=== PATIENT | male | born 1945 | race Caucasian/White ===

== ENCOUNTER 2022-03-17 09:01 | Outpatient (CLI) | payer MEDICARE, OTHER, SELFPAY ==
--- NOTE | 2022-03-17 09:15 | MR_ITS ---
[address] [address] Phone:?[phone] Fax:?[phone] Referring Physician Information: Daniel Lu M.D. [address] [facility] [address] Phone:?[phone] Fax:?[phone] Patient:?Johanny Love D.O.B:?1945 Sex:?Male Phone:?[phone] [facility] MRN:?[id number] Exam Date:?03/17/2022 ? EXAM: MRI of the RIGHT SHOULDER, without contrast CLINICAL HISTORY: Right shoulder pain. History of injury/flipped in a trench. Evaluate for rotator cuff tear. COMPARISONS: None available. TECHNICAL: MRI sequences of the right shoulder: Axials: PD, T2 Coronals: PD, STIR, T2 Sagittals: PD, T2 SEDATION: None CONTRAST: None FINDINGS: Bones: No fracture or suspicious bone marrow signal abnormality. Coracoacromial arch: Acromion: Type II acromion. No os acromiale. There is a subacromial enthesophyte. Acromiohumeral space: Markedly narrowed in the setting of full-thickness supraspinatus and infraspinatus tendon tears. Coracohumeral space: The bony distance is unremarkable. Acromioclavicular joint: Marked degenerative changes with marked inferior osteophytosis. Coracoclavicular ligament: The coracoclavicular ligament is intact. Rotator cuff muscles/tendons: Supraspinatus and infraspinatus: There are complete full-thickness tears of the supraspinatus and infraspinatus tendons with proximal/medial tendon retraction to the level of the glenoid, superior subluxation of the humeral head/marked narrowing of the acromiohumeral bony distance, slight atrophy of the supraspinatus muscle, and mild to moderate atrophy of the infraspinatus muscle in the setting of mild diffuse muscular atrophy. Teres minor: The teres minor tendon is intact. There is no disproportionate muscular atrophy. Subscapularis: Approximately 3.0 cm in craniocaudad dimension near full- thickness articular sided tear of the superior and mid portions of the subscapularis tendon. Slight atrophy of the subscapularis muscle in the setting of slight diffuse muscular atrophy. Labrum: There is degenerative fraying of most of the labrum. Proximal biceps tendon, long head and short heads: There is rupture of the proximal long head of the biceps tendon with distal tendon retraction distal to the bicipital groove. The short head is intact. Glenohumeral joint: Small glenohumeral joint effusion and substantial synovitis. No full-thickness chondral defect or subchondral bone marrow edema/cystic change is seen. No convincing evidence of capsular edema or thickening although evaluation is suboptimal because of lack of joint distention. Bursae: Subacromial/subdeltoid: The presence of fluid is not unexpected given full- thickness rotator cuff tendon tearing. Subcoracoid: No convincing subcoracoid bursal thickening/bursitis. IMPRESSION: 1. Complete full-thickness tears of the supraspinatus and infraspinatus tendons with proximal/medial tendon retraction to the level of the glenoid, superior subluxation of the humeral head, slight atrophy of the supraspinatus muscle, and mild to moderate atrophy of the infraspinatus muscle (in the setting of slight diffuse muscular atrophy). 2. Approximately 3.0 cm in craniocaudad dimension near full-thickness articular sided tear of the superior and mid portions of the subscapularis tendon. Slight atrophy of the subscapularis muscle in the setting of slight diffuse muscular atrophy. 3. Rupture of the proximal long head of the biceps tendon with distal tendon retraction distal to the bicipital groove. 4. Subacromial enthesophyte. 5. Small glenohumeral joint effusion and substantial synovitis. RCB Electronically signed on 03/17/2022 1:54:00 PM by Abiel Baez M.D.
== END 2022-03-17 09:02 | disposition home or self-care (01) ==
LOC: MRI 09:02
PROVIDERS: PCP Family Medicine; Visit Provider Orthopaedic Surgery Sports Medicine
DX: M25.511 Pain in right shoulder (principal); M75.101 Unspecified rotator cuff tear or rupture of right shoulder, not specified as traumatic; M25.412 Effusion, left shoulder
CPT/HCPCS: 73221

== ENCOUNTER 2022-04-14 06:52 | Day surgery (SDC) | payer MEDICARE, OTHER, SELFPAY ==
[2022-04-14] VITALS (19 sets, daily range): BP systolic 98–136; BP diastolic 50–67; PULSE 48–71; RESP 14–16; TEMP 36.2–36.7; O2SAT 93–98; BMI 32.5
[2022-04-14] MEDS: LACTATED RINGERS 1000 ML 1,000 ML 100 ML IV (07:30)
[2022-04-14] MEDS: MIDAZOLAM HCL 1 MG/ML inj IVP (08:01)
[2022-04-14] MEDS: fentaNYL 100 MCG/2 ML inj IVP (08:01)
--- NOTE | 2022-04-14 08:13 | SUR.PREOP ---
TIME?OUT:?0755 PT/RN/MDA?VERIFICATION?OF?SURGICAL?SITE,?PROCEDURE,?AND?CONSENT OBTAINED?PRIOR?TO?INVASIVE?PROCEDURE.
--- NOTE | 2022-04-14 08:16 | W.PM.NB ---
Nerve Block Nerve Block Date Seen: 04/14/22 Type of block requested by surgeon for post-operative analgesia: interscalene Side: right Time out performed: Yes Verification of patient name: Yes Verification of date of : Yes Site marking: site marked Name of person performing procedure: Junior Continuous monitoring Was continuous monitoring of O2 sat, B/P, credit risk modeler, recorded every 15 minutes?: Yes Procedure Checklist: sterile prep, needles and gloves Ultrasound guided. Images saved: Yes Medications given in 5ml increments after negative aspiration: Ropivicaine %: 0.5 mL: 20 Needle gauge: 22 Decadron (mg): 10 Precedex (mcg): 25 Patient tolerated procedure well: Yes Block Charges Block Charge (with Pro Fee): Brachial Plexus Use of Ultrasound Machine for Block: Yes- US Guidance/pain block
[2022-04-14] MEDS: CEFAZOLIN 2 GM in 0.9 % SODIUM CHLORIDE Mini-bag 100 ML IVPB (09:45)
--- NOTE | 2022-04-14 10:03 | W.ANESCHARGE ---
Anesthesia Charges Start Date/Time Anesthesia Start Date: 04/14/22 Anesthesia Start Time: 09:28 Stop Date/Time Anesthesia Stop Date: 04/14/22 Anesthesia Stop Time: 12:12 Summary Emergency: No Extremes of Age: Over 70-CPT 26960
--- NOTE | 2022-04-14 10:10 | SUR.OPER ---
PATIENT QUESTIONS ANSWERED SATISFACTORILY PREOPERATIVELY. PATIENT BROUGHT TO OR #3 PER CART FOLLOWING THE BLOCK. Patient positioned supine on OR #3 bed for the intubation.? Perioperative team wrapped the?left arm in a neutral position on the pt. abdomen with the drawsheet.?Right arm elevated on an IV pole in a padded strap. Final approval of positioning by surgeon. CONTINUOUS IRRIGATION OF THE LEFT SHOULDER WITH MIXTURE OF 3000 NACL AND 1mg OF EPINEPHRINE DURING PROCEDURE.
--- NOTE | 2022-04-14 11:49 | PM.ORPRC ---
Procedure Note Date of procedure: 04/14/22 Procedure: PREOPERATIVE DIAGNOSES: 1. Right shoulder rotator cuff tear-full thickness supraspinatus and infraspinatus and upper border subscapularis 2. Right shoulder AC degenerative joint disease. 3. Right shoulder labral tearing 4. Right shoulder long head of biceps rupture. 5. Right shoulder subacromial impingement syndrome. POSTOPERATIVE DIAGNOSES: 1. Right shoulder rotator cuff tear-full thickness supraspinatus and infraspinatus and upper border subscapularis 2. Right shoulder AC degenerative joint disease. 3. Right shoulder labral tearing 4. Right shoulder long head of biceps rupture. 5. Right shoulder subacromial impingement syndrome. NAME OF OPERATION: 1. Right shoulder arthroscopic rotator cuff [id number] supraspinatus and infraspinatus with retraction in mid humeral head; as well as upper border subscapularis 2. Right shoulder arthroscopic distal clavicle excision 3. Right shoulder arthroscopic extensive glenohumeral debridement 4. Right shoulder arthroscopic bursectomy and subacromial decompression/partial acromioplasty. SURGEON: Daniel Lu MD LATEX FOAM WORKER: Donta CHAPARRO. Of note, a skilled retail sales assistant was critical for this case to aide in patient positioning, suture manipulation, arm positioning, instrument positioning, and closure. ANESTHESIA: General plus preoperative supraclavicular block. EBL: Less than 50 mL IMPLANTS: Arthrex 2.6 mm FiberTak RC (x2); 4.75 mm BioComposite SwiveLock suture anchor (x2); 5.5 mm BioComposite SwiveLock suture anchor (x2) COMPLICATIONS: None evident INDICATIONS: The patient is a pleasant, 76-year-old male who has experienced right shoulder pain that has been increasing in recent time. Physical exam and imaging were consistent with a rotator cuff tear. Given their findings, as well as the weakness and pain, and inadequate response to nonoperative management, recommendation was made for surgery. FINDINGS: Exam under anesthesia revealed stable shoulder with excellent range of motion. The diagnostic arthroscopy revealed grade 2 chondromalacia humeral head with some loose chondral tissue. The Subscapularis tendon was torn from its upper border with mild retraction. The long head of the biceps tendon was absent from the joint consistent with previous rupture. The superior rotator cuff tendon was found to be torn full-thickness through the entire supraspinatus and majority of the infraspinatus with retraction to the medial/mid humeral head.. The labrum was torn through majority the superior labrum as well as anterior labrum likely consistent with the prior biceps rupture. No loose bodies were identified within the pouch or subscapularis recess. PROCEDURE: Following a thorough discussion of risks, benefits, and alternatives, consent was obtained and the right shoulder was marked. The patient was brought to the operating room and placed supine on the operating table. Induction of anesthesia was completed after preoperative supraclavicular block was administered in preop holding. Appropriate time out was performed identifying proper patient, site, and procedure. 2 g IV Ancef was administered within 1 hour of incision preoperatively. The right upper extremity was prepped and draped in the appropriate sterile fashion using ChloraPrep prep. This was after the patient was positioned in the beach chair with their head in neutral alignment and all bony prominences well padded. The shoulder was insufflated with 20mL of normal saline via an 18g spinal needle from a posterior approach. An 11 blade skin incision allowed a blunt trochar to be inserted and diagnostic arthroscopy to be performed with the findings as noted above. An anterior portal was established with an outside in technique. This allowed the probe to be inserted and confirm the diagnostic arthroscopic findings. The shaver was then inserted and allowed debridement of the superior labrum as well as anterior labrum, humeral chondral tissue, biceps stump, biceps tendon that had retracted down into the bicipital groove, and rotator cuff tissue. Following this, the upper border subscapularis was repaired after debriding the lesser tuberosity with the shaver and [place] cautery. Subscapularis was captured in horizontal mattress fashion with a fiber tape suture. The tails were brought to a single anchor in the lesser tuberosity with excellent reapproximation of the subscap tendon and good excursion/tension. Thereafter, the subacromial space was entered. Here, a complete bursectomy and partial acromioplasty/subacromial decompression was performed with a combination of radiofrequency ablator, the shaver, and a 5.5 mm bur. Additionally, distal clavicle excision was performed with the bur. 8 mm of distal clavicle was resected based on the with of our bur. Further inspection of the supraspinatus and infraspinatus rotator cuff was performed. This identified the tear as noted above. The margins of the tear were debrided, and the greater tuberosity was debrided with a combination of the [place] cautery, shaver, and bur on reverse setting. After gentle decortication, a 3 x 2 speed bridge configuration with a medial alden was engaged. 3 medial anchors were placed (FiberTak RC for the anterior and posterior, 4.75 mm for the middle) and the sutures were passed with a fiber link. The eyelet suture tails were then retrieved and tied and cinched down for the medial alden purpose. A tail from each of the medial row anchor FiberTapes were then brought to a lateral row anchor along with 1 of the tails from the medial alden. Excellent reapproximation of the tissue to the greater tuberosity was achieved with broad footprint compression. Prior to anchor electric train driver removal, the eyelet sutures were tugged on for each anchor and found that the anchor had excellent stability within the bone. The shoulder was placed through range of motion and found to be stable. The rotator cuff was re-probed and found to be stable. Instruments were removed. Excess fluid was drained, closure performed with 4-0 Monocryl and Steri-Strips. Dressings were applied. Sling was applied. The patient was awoken from anesthesia and transferred to the PACU in stable condition. A skilled retail sales assistant was critical for this case to aid in patient positioning, limb positioning, skill to manipulate arthroscopic instruments and camera, suture management, patient safety, and closure. PLAN: 1. Elbow, forearm, wrist and digit range of motion as tolerated. 2. Encouraged ice. 3. Percocet for pain as needed. 4. Sling at all times except for ROM and showering. 5. Follow up with PA visit in 1-2 weeks for wound check. Initiate physical therapy following that visit for passive range of motion. Initiate active assisted range of motion at 4-6 weeks. May do pendulums now.
--- NOTE | 2022-04-14 12:15 | W.ANESCHARGE ---
Anesthesia Charges Start Date/Time Anesthesia Start Date: 04/14/22 Anesthesia Start Time: 09:28 Stop Date/Time Anesthesia Stop Date: 04/14/22 Anesthesia Stop Time: 12:12 Summary Emergency: No Extremes of Age: Over 70-CPT [address]
== END 2022-04-14 14:40 | disposition home or self-care (01) ==
PROVIDERS: PCP Family Medicine; Visit Provider Orthopaedic Surgery Sports Medicine
PROC: (CPT 29805; principal; 2022-04-14 08:30)
DX: M75.121 Complete rotator cuff tear or rupture of right shoulder, not specified as traumatic (principal); M19.011 Primary osteoarthritis, right shoulder; M75.41 Impingement syndrome of right shoulder; S46.111A Strain of muscle, fascia and tendon of long head of biceps, right arm, initial encounter; S43.431A Superior glenoid labrum lesion of right shoulder, initial encounter
CPT/HCPCS: 29827; 29826; 29824; 29823; 01630; 64415; 76942; 99100; C1713; J0330; J0690; J1100; J1170; J2250; J2370; J2405; J2704; J2795; J3010; J7120; L3670

== ENCOUNTER 2022-09-17 13:45 | Outpatient (RCR) | payer MEDICARE, OTHER, SELFPAY ==
--- NOTE | 2022-05-17 14:58 | PT.OPEX ---
PT [place] Out[facility] Eval PT [facility] Outpatient Eval Start: 05/13/22 08:39 Freq: Status: Active Protocol: Document 05/13/22 08:40 ERLINDA (Rec: 05/13/22 08:41 ERLINDA [id number]) E-signed By Guru Gutierrez DPT, MS Physical Therapy Outpatient Evaluation Insurance Information Recert Due Date 08/11/22 Insurance Name Medicare B Medical Diagnosis Status post R rotator cuff repair, SAD, DCE, bursectomy, extensive glenohumeral debridement Treating Diagnosis R shoulder pain, decreased R shoulder PROM and AROM in all directions, R UE weakness. Subjective Subjective Pt is a 76 y.o. male who presents to therapy post-op R RCR (supraspinatus and infraspinatus) with 6 anchors, biceps tenotomy, bursectomy, extensive shoulder debridement , DCE and SAD on 04/14/22. Injury occurred ~5 days prior to surgery after slipping on loose dirt during a [employer] for [employer]. Shoulder feeling better every day with decreased pain levels, only requiring occasional Advil recently. Careful to avoid AROM, continued sling usage and not performing activities into pain. 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 PMH includes high cholesterol. AGGR factors: All activities with R UE, sleeping. ALLEV factors: rest , ice, Advil, pendulums. Pain Comments 0-2/10 Current Work Status Retired Preferred Name [facility] Precautions Treatment Precautions/Contraindications No AAROM until 6 weeks post-op Therapy Limitations/Systems Review Not Limited Objective Functional Test Performed & Score QUICK DASH 92% Assessment Assessment/Impression Pt is doing very well 4-weeks post-op with minimal pain and excellent precautions compliance. R shoulder PROM: flex 95 deg, ABD 80 deg, ER 20 deg, IR 45 deg. Pt struggled with relaxation during passive flex ROM, especially on the downward phase which was stopped to avoid injury or irritation of R shoulder. Pt will likely respond better to pulleys to perform in future visits. Will begin AAROM at 6 weeks post-op, per MD instructions. Current limitations: R shoulder pain, decreased R shoulder PROM and AROM in all directions, R UE weakness. He will benefit from continued skilled therapy to address these limitations. Primary Functional Limitations All activities with L UE, sleeping Plan of Care Rehabilitation Potential Excellent Physical Therapy Goals Short-term therapy goals to be completed in 4 weeks: 1.Pt will display improved R shoulder flex and ABD PROM to >165 deg to progress to AROM phase of rehab. 2.Pt will report improved quality of sleep waking <2x per night due to R shoulder pain >50% of nights for >3 consecutive nights. Long-term goals to be completed in 12 weeks: 1.Pt will be independent and compliant with HEP 2.Pt will display >165 deg R shoulder flex and ABD AROM to reach into overhead cabinets and perform all ADLs. 3.Pt will display improved R shoulder flex, ABD, ER and IR strength of 5/5 to lift objects into overhead cabinets and perform work activities. 4. Pt will report >75% improvement in quick DASH questionnaire to significantly improve mookie to work and daily activities. Coordination/Communication With Referral Source Treatment Plan/Direct Interventions Joint Mobilization,Manual Therapy,Therapeutic Exercises Frequency/Duration 1-2x per week for at least 12- 16 visits, decreasing visit frequency as able. Patient Will Be Discharged From Therapy Completion of LTG(s),Skills Plateau,Independent w/HEP, Independently Progressing Evaluation Billing Untimed Code Treatment Minutes 24 Complexity Moderate Certification Information Initial Certification Date 05/13/22 Ending Certification Date 08/11/22 Provider Signature Shows Agreement With POC & Medical Necessity Physician Signature & Date Requested Please Sign/Date Here Physician Comment/Change : Physician NPI Number #
--- NOTE | 2022-08-20 12:53 | PT.OPDNX ---
[facility] Daily Note PT [facility] Outpatient Daily Note Start: 05/13/22 08:39 Freq: Status: Active Protocol: Document 08/20/22 12:39 ERLINDA (Rec: 08/20/22 12:50 ERLINDA [id number]) E-signed By Guru Gutierrez, VIKTORIAT, MS PT OP Daily Progress Note Visit Information Note Type Recert/Progress Note Visit Number 10 Insurance Authorized Visits - Physician Authorized Visits Eval and treat Insurance Information Recert Due Date 08/11/22 Insurance Name Medicare B Medical Diagnosis Status post R rotator cuff repair, SAD, DCE, bursectomy, extensive glenohumeral debridement Treating Diagnosis R shoulder pain, decreased R shoulder PROM and AROM in all directions, R UE weakness. Subjective Subjective Pt reports his ROM continues to improved except for reaching across his body which remains tight and stiff. Continues to exercise most days with band exercises and stretching his arm but he continues to experience R shoulder pain in all positions except for sleeping on his back. Lost tennis ball so has not performed active release on wall. Pain Comments 0-3/10 Preferred Name [facility] Precautions Treatment Precautions/Contraindications Progress AROM and strength, as able. Objective Other/Pertinent Objective R Shoulder AROM flex 176 deg, ABD 172 deg, ER 85 deg, IR 55 deg. Palpation Hypertonicity and TPs R posterior cuff and subscap Strength R UE Flex: 4+/5 ABD: 4+/5 Biceps: 5/5 ER: 4/5 IR: 4+/5 Patient Instructed in Risks/Benefits Yes Therapeutic Exercise Therapeutic Exercise Minutes (minutes) 30 Therapeutic Exercise: To Restore UBE fwd/bwd x 4 min for warmup Functional Status Progressed shoulder flex supine to 3# 14 x 3, reviewing importance Wall slide shoulder flex and scaption AAROM for warmup Progressed to shoulder ER/IR uni GTB 12 x 3 Resisted shoulder flex with slight horiz ABD GTB cueing to avoid shoulder hiking Modified to sidelying shoulder ER 2# Progressed to shoulder ER 90- 90 position YTB with fatigue. Shoulder W's decreased RTB 8 x 3 with fatigue Manual Therapy Techniques Manual Therapy Minutes (minutes) 15 Manual Therapy Techniques R GH distraction and posterior mobs G3-4 to decrease adhesions R posterior cuff and subscap STM/TPR and active release. Reviewed self release with tennis ball. Reciprocal and autogenic inhibition stretching for ER and IR in supine. Treatment Minutes Timed Code Treatment Minutes 45 Total Treatment Time 45 Billing Units Manual Therapy Units 1 Therapeutic Exercise Units 2 Assessment/Impression Assessment/Impression Pt displays significant improvement in R shoulder ROM in all directions with continued R UE weakness, especially with activities above shoulder height. R posterior cuff and subscap remain tight with hypertonicity. Significant improvement in horiz ADD AROM following posterior cuff release with decreased hypertonicity and TPs following. Sleep remains affected due to pain and tightness. Functional IR improving but remains limited with good response to stretching exercises today. Pt appears to be pushing his R UE too much with band exercises and utilizing provoking shoulder positions with empty can position. Emphasized importance of not pushing exercises past fatigue or into pain focusing on mechanics as his RC musculature is weaker today compared to at his last session. Again able to progress and correct uni RC and periscap strengthening with fatigue and no elevation in sxs. He is making steady progress towards all PT goals. Pt will benefit from continued skilled PT services, progressing as able. Plan of Care Physical Therapy Goals Short-term therapy goals to be completed in 4 weeks: 1.Pt will display improved R shoulder flex and ABD PROM to >165 deg to progress to AROM phase of rehab. MET. 2.Pt will report improved quality of sleep waking <2x per night due to R shoulder pain >50% of nights for >3 consecutive nights. Progressing. Long-term goals to be completed in 16 weeks: 1.Pt will be independent and compliant with HEP. Progressing 2.Pt will display >165 deg R shoulder flex and ABD AROM to reach into overhead cabinets and perform all ADLs. MET 3.Pt will display improved R shoulder flex, ABD, ER and IR strength of 5/5 to lift objects into overhead cabinets and perform work activities. Progressing 4. Pt will report >75% improvement in quick DASH questionnaire to significantly improve mookie to work and daily activities. Progressing Daily Plan of Care Continue per POC Daily Plan of Care Comments Progress passive ROM, beginning table slides and pulleys, as able. Recertification Information Initial Certification Date 05/13/22 Recertification Start Date 08/11/22 Recertification Due Date 11/09/22 Reasons to Continue Skilled Therapy See assessment Rehabilitation Potential Excellent Continued Plan of Care and Interventions Continued TE, MT and NM re-ed 1x every 2-3 weeks for 3-6 additional PT visits, transitioning to I sx management, as able. Provider Signature Shows Agreement With POC & Medical Necessity Physician Comment/Change Comment or Changes Physician NPI Number #
== END 2022-09-17 14:39 | disposition home or self-care (01) ==
PROVIDERS: PCP Family Medicine; Visit Provider Physician Assistant Surgical
DX: M25.511 Pain in right shoulder (principal); Z74.09 Other reduced mobility; R53.1 Weakness; Z98.890 Other specified postprocedural states
CPT/HCPCS: 97110; 97140; 97162

== ENCOUNTER 2022-11-03 08:15 | Day surgery (SDC) | payer MEDICARE, OTHER, SELFPAY ==
[2022-11-03] MEDS: KETOROLAC OPHTH 0.5% 1 DROP EYE-RIGHT ×3 (08:25→08:35)
[2022-11-03] MEDS: TETRACAINE 0.5% OPHTH 1 DROP EYE-RIGHT ×2 (08:25→08:30)
[2022-11-03 08:34] VITALS: BP 145/65; PULSE 66; RESP 16; TEMP 36.4; O2SAT 97
[2022-11-03 08:38] VITALS: BMI 33.3
[2022-11-03] MEDS: SODIUM CHLORIDE 0.9 % (FLUSH) 10 ML SYRINGE IVF (08:45)
--- NOTE | 2022-11-03 08:48 | SUR.PREOP ---
The eye drops brought by the patient (Ketorolac and Prednisolone) are examined and I have determined they are labeled by the patient's pharmacy for this patient as prescribed by the surgeon. The bottles are intact, recently obtained and appear to be correct.
[2022-11-03] MEDS: TETRACAINE 0.5% OPHTH 2 DROP EYE-RIGHT (09:42)
[2022-11-03] MEDS: BALANCED SALT IRRIG SOLN 15 ML EYE-RIGHT (09:47)
[2022-11-03 10:08] VITALS: BP 139/68; PULSE 59; RESP 16; TEMP 36.6; O2SAT 97
--- NOTE | 2022-11-03 10:11 | W.ANESCHARGE ---
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
--- NOTE | 2022-11-03 10:15 | P.OPTPRC_ITS ---
Procedure Note Date of procedure: 11/03/22 Will [facility] bill your pro fee for this procedure?: Yes Procedure Description: SURGEON: Lina Lizarraga MD PREOPERATIVE DIAGNOSIS: Nuclear sclerotic cataract, right eye. POSTOPERATIVE DIAGNOSIS: Nuclear sclerotic cataract, right eye. NAME OF OPERATION: Phacoemulsification of cataract with posterior chamber intraocular lens implantation in the right eye. ANESTHESIA: Topical. ESTIMATED BLOOD LOSS: Less than 2 cc. COMPLICATIONS: None. PATHOLOGY SPECIMEN: None. INDICATIONS: See consult note for details. The risks, benefits and alternatives of the procedure were explained to the patient, who elected to proceed and s igned informed consent to do so. PROCEDURE: The patient was brought to the pre-holding area where the right eye was identified as the operative eye. I placed my initials above this eye. The patient received eye drops consisting of 0.5% tetracaine, 1% tropicamide, 10% phenylephrine, and 0.5% ketorolac. The patient was then brought to the operating room where the right eye was again identified as the operative eye. The eye was prepped with Betadine and draped in the usual sterile ophthalmic fashion. A #15 super-sharp blade was used to create a paracentesis site. 1% non-preserved intracameral lidocaine was injected into the anterior chamber. Endocoat was injected into the anterior chamber. A 2.4 mm keratome was used to create a three-plane self-sealing incision 1 mm anterior to the temporal limbus. A cystotome was used to create an anterior capsular leaflet. The Utrata forceps were used to extend this to form a continuous curvilinear capsulorrhexis. Hydrodissection was performed. The cataract was removed with phacoemulsification using the [id number] technique. The irrigation and aspiration tip was used to remove the remaining cortex. Healon was injected into the capsular bag. An NAFISA ZCB00 intraocular lens of 17.5 diopters was injected into the capsular bag. The irrigation and aspiration tip was used to remove the remaining viscoelastic. Balanced salt solution on a cannula was used to hydrate the wound, and the wound was found to be watertight. The pupil was noted to be round. DISPOSITION: The patient was taken to the recovery room and discharged to home in stable condition. The patient was instructed to call me or go to the emergency department with any sudden change, including dramatic loss of vision, severe pain in the eye or eyebrow region, nausea, or vomiting. The patient will follow up in the clinic tomorrow morning.
--- NOTE | 2022-11-03 10:18 | W.ANESCHARGE ---
Anesthesia Charges Start Date/Time Anesthesia Start Date: 11/03/22 Anesthesia Start Time: 09:38 Stop Date/Time Anesthesia Stop Date: 11/03/22 Anesthesia Stop Time: 10:12 Summary Extremes of Age - Over 70 or under 1: MDA
== END 2022-11-03 10:43 | disposition home or self-care (01) ==
PROVIDERS: PCP Family Medicine; Visit Provider Ophthalmology
PROC: (CPT 66984; principal; 2022-11-03 08:15)
DX: H25.11 Age-related nuclear cataract, right eye (principal)
CPT/HCPCS: 66984; 00142; 99100; A9270; J2250; J3010; V2632

== ENCOUNTER 2023-05-09 08:57 | Day surgery (SDC) | payer MEDICARE, OTHER, SELFPAY ==
[2023-05-09] VITALS (25 sets, daily range): BP systolic 115–169; BP diastolic 56–90; PULSE 55–79; RESP 10–20; TEMP 35.6–36.7; O2SAT 80–100; BMI 32.5
[2023-05-09] MEDS: LACTATED RINGERS 1000 ML 1,000 ML 100 ML IV (09:15)
[2023-05-09] MEDS: ACETAMINOPHEN 500 MG TABLET 1000 MG PO ×3 (10:03→23:42)
[2023-05-09] MEDS: SODIUM CHLORIDE 0.9 % (FLUSH) 10 ML SYRINGE IVF (10:04)
[2023-05-09] MEDS: OXYCODONE (CR) 10 MG TAB.ER.12H PO (10:04)
--- NOTE | 2023-05-09 10:05 | SUR.PREOP ---
TIME?OUT:?1135 PT/RN/MDA?VERIFICATION?OF?SURGICAL?SITE Right Knee,?PROCEDURE Adductor Canal Block,?AND?CONSENT OBTAINED?PRIOR?TO?INVASIVE?PROCEDURE.
--- NOTE | 2023-05-09 10:17 | CRLHL7_ITS ---
For Patients: As a result of the Cures Act, medical imaging exams and procedure reports are released immediately into your electronic medical record. You may view this report before your referring provider. If you have questions, please contact your health care provider. Indication: post op Technique: Two views right knee Findings/Impression: Hardware from a right total knee arthroplasty is in satisfactory position. Bone alignment is normal. No sign of acute fracture. Postop changes are within normal limits. Dictated by Randolph Phelps MD @ 05/10/2023 10:42:18 AM (Electronically Signed)
--- NOTE | 2023-05-09 10:18 | W.PM.H&PU ---
History & Physical Update History & Physical Update H&P Reviewed and patient assessed: The following changes are noted below H&P Updates: Patient took Xarelto last dose 05/07/2023 evening. Otherwise, no changes noted.
[2023-05-09] MEDS: MIDAZOLAM HCL 1 MG/ML inj IVP (11:36)
[2023-05-09] MEDS: fentaNYL 100 MCG/2 ML inj IVP (11:36)
[2023-05-09] MEDS: CEFAZOLIN 2 GM in 0.9 % SODIUM CHLORIDE Mini-bag 100 ML IVPB ×2 (11:50→17:48)
[2023-05-09] MEDS: TRANEXAMIC ACID 100 MG/ML INJ 1000 MG IV (11:55)
--- NOTE | 2023-05-09 13:09 | P.ORPRC_ITS ---
Procedure Note Date of procedure: 05/09/23 Procedure: PREOPERATIVE DIAGNOSIS: 1. Right knee osteoarthritis, primary, severe POSTOPERATIVE DIAGNOSIS: 1. Right knee osteoarthritis, primary, severe PROCEDURE: 1. Right total knee arthroplasty SURGEON: Daniel Lu MD. OXYGEN EQUIPMENT TECHNICIAN: Roberto Barba Pac - Of note, a skilled business banking sales assistant was critical for this case to aid in patient positioning, tissue retraction, limb manipulation/positioning, and closure. ANESTHESIA: General endotracheal anesthetic (patient to Xarelto within 36 hours making spinal higher risk choice) IMPLANTS: DePuy J&J all cemented TKA - Attune PS femur size 8, size 7 tibia, 5 poly spacer, 41mm patella TOURNIQUET: 90 min at 300 torr EBL: 50 ml COMPLICATIONS: None evident INDICATIONS: The patient is a pleasant 77-year-old male who has experienced severe right knee pain and difficulty bearing weight. Workup included x-rays which revealed severe osteoarthrosis in the knee. Given the deformity, the dysfunction, and the pain, as well as the failure of nonoperative management, recommendation was made for surgery. FINDINGS: Full-thickness chondral loss throughout the medial and patellofemoral compartments broom degenerative meniscus pathology both sides. Large effusion upon entering the joint. Osteophytes diffusely. DESCRIPTION OF PROCEDURE: Following a thorough discussion of risks, benefits, and alternatives consent was obtained and the right knee was marked. The patient was brought to the operating room and placed supine on the operating table. Induction of anesthesia was undertaken. 2 g IV Ancef and 1 g tranexamic acid was administered within 1 hr of incision preoperatively. Proper time-out was performed identifying proper patient, site, procedure. The operative extremity was prepped and draped in the appropriate sterile fashion using ChloraPrep after the patient was positioned supine with all bony prominences well padded. A longitudinal, anterior, midline skin incision was made starting approximately 3cm proximal to the superior pole of the patella and advanced distal to the tibial tubercle. A median parapatellar arthrotomy was created. A medial subperiosteal sleeve was created with knife, baker elevator and curved osteotome. The retropatellar fatpad was resected and the synovium in the suprapatellar pouch excised to visualize the anterior femoral cortex. Femoral preparation was performed via an intramedullary guide. Step drill allowed access into the femoral canal. The distal cutting guide was placed with 5? of valgus and 10 mm cut on the distal femur. Femur was sized using a posterior referencing guide in 3? of external rotation. This found have a best fit with the sizing noted above. The 4 in 1 cutting block was then placed, and the distal femur shaped accordingly. The box cut was then created and the trial implant inserted to confirm appropriate fit. We turned our attention to the proximal tibia. Extramedullary guide was utilized for cutting with the goal of being 90 degree cut from the mechanical axis of the tibia in the varus/valgus plane utilizing tibial crest as the primary alignment. Initially a 2 mm resection was performed from the medial tibial plateau. Ultimately, balancing was achieved in both flexion and extension in both varus and valgus. The knee was able to achieve full extension as well comfortably. The patella was initially measured and found have a thickness of 25 mm. It was resected back to approximately 15 mm. It was sized to be a best fit with as noted above. This was drilled, trial placed. All trials were placed and found to have an excellent stability and balance. At this stage, trial implants were removed, the knee was thoroughly irrigated with normal saline, and the cement was mixed. After irrigation, the knee was thoroughly dried, and cement placed, with the real tibial and femoral implants placed along with the patella. Trial poly spacer was placed and confirmed to have excellent range of motion and full extension, and the real poly spacer opened and inserted. All extra cement was removed, and a 3 min Betadine soak performed. Finally, a final irrigation round with normal saline was performed. Closure performed with 0 Vicryl and #0 Stratafix for the quad tendon/retinaculum. 2-0 Vicryl for the subcutaneous and 4-0 Stratafix for subcuticular closure. Dressings were applied and the patient was awoken from anesthesia after the tourniquet deflated and transferred the PACU in stable condition. A skilled business banking sales assistant was critical for this case to aid in patient positioning, tissue retraction, bone exposure, limb manipulation/positioning, patient safety, and closure. PLAN: 1. Weight bear as tolerated operative extremity. 2. 23 hr perioperative antibiotics. 3. Ice. 4. PT/OT consults for ambulation assistance/mobility education. 5. Social work consult for discharge planning. 6. DVT prophylaxis with at SCDs, Erwin Myers, and return to his xarelto use.
--- NOTE | 2023-05-09 13:44 | W.ANESCHARGE ---
Anesthesia Charges Start Date/Time Anesthesia Start Date: 05/09/23 Anesthesia Start Time: 11:41 Stop Date/Time Anesthesia Stop Date: 05/09/23 Anesthesia Stop Time: 13:54 Summary Extremes of Age - Over 70 or under 1: MDA
--- NOTE | 2023-05-09 13:45 | W.PM.NB ---
Nerve Block Nerve Block Time Seen by Provider: 11:38 Date Seen: 05/09/23 Type of block requested by surgeon for post-operative analgesia: adductor canal Side: right Time out performed: Yes Verification of patient name: Yes Verification of date of : Yes Site marking: site marked Name of person performing procedure: Junior Continuous monitoring Was continuous monitoring of O2 sat, B/P, ekg monitor tech, recorded every 15 minutes?: Yes Procedure Checklist: sterile prep, needles and gloves Ultrasound guided. Images saved: Yes Medications given in 5ml increments after negative aspiration: Ropivicaine %: 0.5 mL: 20 Needle gauge: 20 Decadron (mg): 10 Precedex (mcg): 25 Patient tolerated procedure well: Yes Additional comments: Needle noted adjacent to nerve Block Charges Block Charge (with Pro Fee): Femoral Nerve Use of Ultrasound Machine for Block: Yes- US Guidance/pain block
--- NOTE | 2023-05-09 13:45 | W.PM.NB ---
Nerve Block Nerve Block Time Seen by Provider: 11:38 Date Seen: 05/09/23 Type of block requested by surgeon for post-operative analgesia: geniculars Side: right Time out performed: Yes Verification of patient name: Yes Verification of date of : Yes Site marking: site marked Name of person performing procedure: Junior Continuous monitoring Was continuous monitoring of O2 sat, B/P, last repairer helper, recorded every 15 minutes?: Yes Procedure Checklist: sterile prep, needles and gloves Medications given in 5ml increments after negative aspiration: Ropivicaine %: 0.5 mL: 9 Needle gauge: 25 Patient tolerated procedure well: Yes Block Charges Block Charge (with Pro Fee): Genicular Nerve Block Use of Ultrasound Machine for Block: No
[2023-05-09] MEDS: HYDROmorphone 0.5 mg/0.5 ml inj IVP (13:56)
--- NOTE | 2023-05-09 13:56 | W.ANESCHARGE ---
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
[2023-05-09] MEDS: MEPERIDINE 25 MG/ML INJ 12.5 MG IVP (14:00)
[2023-05-09] MEDS: fentaNYL 100 MCG/2 ML inj 50 MCG IVP ×2 (14:22→14:28)
[2023-05-09] MEDS: LACTATED RINGERS 1000 ML 1,000 ML 75 ML IV (15:33)
--- NOTE | 2023-05-09 17:51 | PC.NURSE ---
End of Shift Note: Patient arrived to the unit around 1500. He was pretty drowsy at first due to receiving pain medication in PACU as was having a little bit of pain back there which required a couple different doses of pain medication. He has a history of sleep apnea his cpap is here. When he was dozing off noted he oxygen to drop into the high 80's. Currently have a nc with 2L on to keep sats in the low 90's. He did receive a dose of dilaudid IV for his pain since his arrival here. Will continue to monitor.
[2023-05-09] MEDS: OXYCODONE 5 MG TABLET PO ×2 (18:21→22:12)
--- NOTE | 2023-05-09 18:52 | PM.IMCN1 ---
Date of Consult Patient: Tamera Patient Consult date: 05/09/23 Requesting Physician: Orthopedics Primary Care Provider: Allen Gonzalez MD Consult Narrative Narrative: Johanny Love is a 77 year old male seen following right total knee arthroplasty for management of medical problems. Procedure performed by Dr. Lu without complication. He has requested consultation for management of medical problems. Patient reports doing well postoperatively. Reports pain is well controlled. He is otherwise feeling well. prior to surgery he was doing well. No recent illness or injury. Preop physical examination did not identify any significant perioperative concerns. No significant previous problems with surgery, anesthesia bleeding or clotting. He did develop an episode of heart failure following his previous heart surgery In 2019. Heart disease history includes history of paroxysmal atrial fibrillation status post ablation. He has had a coronary angioplasty with drug-eluting stent in February of 2019 and a TAVR in May of 2019. Review of Systems Narrative: No recent illness or injury. [facility] Medical History (Updated 05/09/23 @ 19:04 by Cj Diaz MD) Chronic anticoagulation ?Z79.01 - custodial (current) use of anticoagulants (ICD-10) Heart failure due to valvular disease ?I50.9 - Heart failure, unspecified (ICD-10) ?I38 - Endocarditis, valve unspecified (ICD-10) Chronic kidney disease ?N18.9 - Chronic kidney disease, unspecified (ICD-10) Tear of medial meniscus of right knee ?S83.241A - Other tear of medial meniscus, current injury, right knee, initial encounter (ICD-10) Osteoarthritis of right knee ?M17.11 - Unilateral primary osteoarthritis, right knee (ICD-10) Tachycardia ?R00.0 - Tachycardia, unspecified (ICD-10) PAC (premature atrial contraction) ?I49.1 - Atrial premature depolarization (ICD-10) GERD (gastroesophageal reflux disease) ?K21.9 - Gastro-esophageal reflux disease without esophagitis (ICD-10) Sleep apnea ?G47.30 - Sleep apnea, unspecified (ICD-10) Hypertension ?I10 - Essential (primary) hypertension (ICD-10) Irregular heart beat ?I49.9 - Cardiac arrhythmia, unspecified (ICD-10) Hyperlipidemia ?E78.5 - Hyperlipidemia, unspecified (ICD-10) Cardiac arrhythmia ?I49.9 - Cardiac arrhythmia, unspecified (ICD-10) Tinnitus ?H93.19 - Tinnitus, unspecified ear (ICD-10) Surgical History (Updated 05/09/23 @ 19:00 by Cj Diaz MD) History of arthroplasty of right knee ?Z96.651 - Presence of right artificial knee joint (ICD-10) Hx of left cataract extraction (11/17/22) ?Z98.42 - Cataract extraction status, left eye (ICD-10) History of right cataract surgery (11/03/22) ?Z98.41 - Cataract extraction status, right eye (ICD-10) Hx of atrioventricular megan ablation ?Z98.890 - Other specified postprocedural states (ICD-10) Hx of hemorrhoidectomy ?Z98.890 - Other specified postprocedural states (ICD-10) Hx of hernia repair ?Z98.890 - Other specified postprocedural states (ICD-10) ?Z87.19 - Personal history of other diseases of the digestive system (ICD-10) H/O arthroscopy of shoulder (04/14/22) ?Z98.890 - Other specified postprocedural states (ICD-10) H/O heart artery stent (09/13/08) ?Z95.5 - Presence of coronary angioplasty implant and graft (ICD-10) Family History Father Throat cancer Mother Heart problem Social History (Updated 05/09/23 @ 18:56 by Cj Diaz MD) Narrative: , retired, former smoker (quit 1975) He lives with his [facility]. He lives in a two-story house with the bedroom and bathroom upstairs. Main living area, kitchen and bathroom downstairs. What is your current living situation?: I presently have a place to live In the past 12 months, utilities in danger of being shut off: no In past 12 months, lack of transportation kept you from medical appts, meetings, work, or getting things needed for daily living: no In the past 12 mos, have been you worried that your food would run out before you had money to buy more?: never true In the past 12 mos, the food you bought just didn't last and you didn't have money to buy more?: never true Smoking Status: Never smoker Do you use any of these nicotine containing products: None Second hand tobacco smoke exposure: No How often do you have a drink containing alcohol: monthly or less Alcohol type: beer How many standard drinks containing alcohol do you have on a typical day: 3 or 4 How often do you have six or more drinks on one occasion: Never AUDIT-C Alcohol total score: 2 Non-prescribed substance use: denies use Caffeine: Yes Are you now , , , , never or living with a partner: Social isolation score (0-1 are the most socially isolated patients): 1 How often does anyone, including family, friends and others, physically hurt you: never How often does anyone, including family, friends and others, insult or talk down to you: never How often does anyone, including family, friends and others, threaten you with harm: never How often does anyone, including family, friends and others, scream or curse at you: never Meds Home Medications and Allergies Home Medications Medication Instructions Recorded Confirmed Type cholecalciferol (vitamin D3) 50 2,000 unit PO DAILY 01/05/22 05/09/23 History mcg (2,000 unit) capsule (Vitamin D3) cpap 01/05/22 04/12/23 History doxazosin 8 mg tablet 8 mg PO HS 01/05/22 05/09/23 History hydrochlorothiazide 25 mg tablet 25 mg PO DAILY 01/05/22 05/09/23 History multivitamin (Multiple Vitamins 1 tab PO DAILY 01/05/22 05/09/23 History tablet) omega-3 fatty acids 500 mg capsule 500 mg PO DAILY 01/05/22 05/09/23 History rosuvastatin 20 mg tablet (Crestor) 20 mg PO HS 01/05/22 05/09/23 History saw palmetto 450 mg capsule 450 mg PO DAILY 01/05/22 05/09/23 History turmeric 400 mg capsule 400 mg PO QDAY 01/05/22 05/05/23 History vitamin A-vitamin C-vit E-min 1 tab PO DAILY 01/05/22 05/09/23 History tablet amoxicillin 500 mg capsule 2,000 mg PO ONCE 01/06/22 05/09/23 History diltiazem HCl 120 mg 120 mg PO DAILY 01/06/22 05/09/23 History capsule,extended release 24 hr flecainide 50 mg tablet 50 mg PO Q12H 01/06/22 05/09/23 History glucosamine-chondroitin 500 mg-400 1 tab PO DAILY 04/12/22 05/09/23 History mg tablet (Cosamin DS) rivaroxaban 20 mg tablet (Xarelto) 20 mg PO QPM 07/13/22 05/09/23 History tizanidine 4 mg tablet 4 mg PO Q6H PRN muscle spasm 05/05/23 05/09/23 History Allergies Allergy/AdvReac Type Severity Reaction Status Date / Time losartan Allergy Unknown Verified 05/09/23 09:17 dabigatran etexilate Allergy felt Verified 05/09/23 09:17 [From Pradaxa] poorly. ok on xarelto lisinopril AdvReac Mild Cough Verified 05/09/23 09:17 Exam Narrative: Exam Narrative: He is alert and appears in no distress. Oropharynx with small airway. Neck is supple without mass or adenopathy. Respirations are clear to auscultation. Cardiovascular: S1, S2, 1/6 systolic ejection murmur. No gallop or rub. Abdomen: Bowel sounds active. Abdomen is soft without tenderness or mass. Extremities without edema. Good peripheral pulses. Intact strength and sensation in his feet and ankles bilaterally. Const: Vital Signs, click to edit/add: Vital Signs - 24 hr 05/09/23 09:29 05/09/23 11:32 05/09/23 11:35 Temperature 97.5 F L 97.5 F L Pulse Rate 58 L 60 55 L Pulse Rate [Pulse Oximeter] Respiratory Rate 16 16 16 Blood Pressure 125/59 L 130/60 115/58 L Blood Pressure [Le ft Arm] Pulse Oximetry 97 99 97 Oxygen Delivery Me thod Room Air Nasal Cannula Nasal Cannula Oxygen Flow Rate 2 2 05/09/23 13:51 05/09/23 13:55 05/09/23 14:00 Temperature 97.4 F L Pulse Rate 69 68 60 Pulse Rate [Pulse Oximeter] Respiratory Rate 12 14 14 Blood Pressure 131/62 141/67 H 136/63 Blood Pressure [Le ft Arm] Pulse Oximetry 92 95 96 Oxygen Delivery Me thod Room Air OxyMask OxyMask Oxygen Flow Rate 10 10 05/09/23 14:05 05/09/23 14:10 05/09/23 14:15 Temperature 97.2 F L Pulse Rate 64 68 70 Pulse Rate [Pulse Oximeter] Respiratory Rate 12 12 12 Blood Pressure 145/64 H 144/68 H 145/62 H Blood Pressure [Le ft Arm] Pulse Oximetry 94 94 94 Oxygen Delivery Me thod OxyMask OxyMask OxyMask Oxygen Flow Rate 10 10 10 05/09/23 14:20 05/09/23 14:25 05/09/23 14:30 Temperature 97.3 F L Pulse Rate 66 65 69 Pulse Rate [Pulse Oximeter] Respiratory Rate 12 10 L 12 Blood Pressure 130/57 L 135/59 L 129/62 Blood Pressure [Le ft Arm] Pulse Oximetry 94 98 100 Oxygen Delivery Me thod Room Air OxyMask OxyMask Oxygen Flow Rate 10 10 05/09/23 14:35 05/09/23 14:40 05/09/23 14:44 Temperature 97.3 F L 97.5 F L Pulse Rate 66 61 63 Pulse Rate [Pulse Oximeter] Respiratory Rate 12 10 L 14 Blood Pressure 126/66 123/56 L 132/57 L Blood Pressure [Le ft Arm] Pulse Oximetry 100 94 94 Oxygen Delivery Me thod Room Air Room Air Room Air Oxygen Flow Rate 05/09/23 14:53 05/09/23 15:00 05/09/23 15:00 Temperature 96.0 F L 96.0 F L Pulse Rate 59 L Pulse Rate [Pulse Oximeter] 63 Respiratory Rate 18 18 Blood Pressure Blood Pressure [Le ft Arm] 139/60 154/74 H Pulse Oximetry 97 100 Oxygen Delivery Me thod Oxygen Flow Rate 3 3 05/09/23 15:15 05/09/23 15:30 05/09/23 15:45 Temperature 96.0 F L 96.7 F L 96.7 F L Pulse Rate Pulse Rate [Pulse Oximeter] 63 61 65 Respiratory Rate 18 18 18 Blood Pressure Blood Pressure [Le ft Arm] 137/72 153/73 H 160/60 H Pulse Oximetry 94 92 95 Oxygen Delivery Me thod Room Air Room Air Room Air Oxygen Flow Rate 05/09/23 16:00 05/09/23 17:03 05/09/23 18:14 Temperature 96.7 F L 97.6 F 97.6 F Pulse Rate Pulse Rate [Pulse Oximeter] 67 69 79 Respiratory Rate 20 20 20 Blood Pressure Blood Pressure [Le ft Arm] 147/72 H 154/75 H 169/76 H Pulse Oximetry 95 95 95 Oxygen Delivery Me thod Room Air Nasal Cannula Nasal Cannula Oxygen Flow Rate 2 2 Documenting provider has reviewed patient's vital signs: yes Assessment and Plan Assessment and plan (1) History of arthroplasty of right knee: Problem comment: Dr. Lu 05/09/2023. Routine postoperative management with pain control and therapy. Resume Xarelto for VTE prophylaxis as well as stroke prophylaxis for AFib Status: Acute (2) Atrial flutter: Problem comment: history of AFib flutter status post ablation. On anticoagulation Status: Acute (3) Coronary artery disease: Problem comment: stent placed 09/13/18, mitral regurgitation Status: Acute (4) Chronic anticoagulation: Problem comment: on Xarelto for history of AFib. Continue Xarelto for AFib and VTE prophylaxis Status: Acute Plan patient is admitted for knee arthroplasty. Doing well postoperatively. Continue routine plan of care for management of pain and therapy. Resume medications for chronic medical problems, especially heart disease. Recommend Xarelto rather than aspirin for VTE prophylaxis. Anticipate discharge to home with his tomorrow. Total time spent is 40 minutes, 30 minutes in coordination care and discussing with patient and other providers ongoing management of heart disease following surgery
[2023-05-09] MEDS: SENNOSIDES 1 TAB TABLET 2 TAB PO (22:10)
[2023-05-09] MEDS: FLECAINIDE ACETATE 50 MG TABLET PO (22:10)
[2023-05-10] MEDS: OXYCODONE 5 MG TABLET PO ×3 (02:23→10:06)
[2023-05-10] MEDS: CEFAZOLIN 2 GM in 0.9 % SODIUM CHLORIDE Mini-bag 100 ML IVPB (02:24)
[2023-05-10 03:00] VITALS: BP 149/70; PULSE 77; RESP 16; TEMP 36.3; O2SAT 96
[2023-05-10] MEDS: ACETAMINOPHEN 500 MG TABLET 1000 MG PO (06:18)
[2023-05-10 06:50] LABS: Basophils Percent Auto 0.1 % (0.0-3.0); Hematocrit 30.5 % (37.0-53.0); Hemoglobin* 10.4 gm/dL (13.5-17.5); Immature Granulocytes Pct Auto 0.2 %; Lymphocytes Percent Auto 4.7 % (20-44); Mean Corpuscular HGB Conc 34 gm/dL (32-36); Mean Corpuscular Hemoglobin 31 pg (26-34); Mean Corpuscular Volume 92 fL (80-100); Monocytes Percent Auto 1.6 % (0.0-11.0); Neutrophils Percent Auto 93.4 % (42.0-72.0); Platelet Count* 190 K/uL (140-440); Red Blood Count 3.32 m/uL (4.30-5.90)
[2023-05-10 06:54] LABS: Slide Review Reflex No
[2023-05-10 07:00] VITALS: O2SAT 96
[2023-05-10 07:13] LABS: Potassium* 4.3 mmol/L (3.6-5.1); Sodium* 136 mmol/L (135-149)
[2023-05-10 07:16] LABS: Blood Urea Nitrogen* 25 mg/dL (7-30); Creatinine* 1.3 mg/dL (0.5-1.5); Est. Creatinine Clearance* 49.13; Estimated Glomerular Filt Rate 57 ml/min
--- NOTE | 2023-05-10 07:34 | PC.NURSE ---
Nursing note, [id number]: Pt A&Ox3, pleasant cooperative. Vitals stable, HTN, on RA, CPAP when sleeping. SBA w/ walker, amb in hallway before bed. PRN Oxycodone 5mg admin, scheduled Tylenol admin. IV abx of Ancef admin this shift. Voiding, saline locked. Cryo cuff to R knee, dressings CDI. Pt reports sleeping well in between cares. Call light within reach and able to use appropriately.
[2023-05-10 07:45] VITALS: BP 165/65; PULSE 68; RESP 16; TEMP 36.4; O2SAT 96
[2023-05-10] MEDS: dilTIAZem 120 MG CAP.ER.24H PO (08:57)
[2023-05-10] MEDS: FLECAINIDE ACETATE 50 MG TABLET PO (08:57)
[2023-05-10] MEDS: SENNOSIDES 1 TAB TABLET 2 TAB PO (08:58)
--- NOTE | 2023-05-10 10:24 | P.ORPN_ITS ---
Subjective Subjective Date Seen: 05/10/23 Principal diagnosis: Status postop day 1 right total knee arthroplasty Interval history: Patient reports doing well. No acute events over night. Pain managed with scheduled and PRN medications, ice. Oxycodone 5 mg every 4 hours is treating his pain well. DVT prophylaxis: Rivaroxaban 20 mg daily, has his chronic anticoagulation, bilateral knee high Erwin stockings, SCDs, walking. Denies fevers, chills, aches, N/V, CP, SOB/BOWDEN, or lightheadedness. Ortho Exam Narrative Exam Narrative: -Patient appears comfortable; no apparent acute distress -Alert and oriented times 3 -Operative knee mildly swollen; soft tissues supple; no ecchymosis; no erythematous streaking Warmth appropriate -Surgical dressing clean, dry, intact; no drainage -Bilateral calfs soft; no significant swelling, edema, tenderness, erythema, discoloration, warmth, or palpable cords -2+ DP/PT pulses, intact dermatomes and myotomes distally (5/5 strength) Const Vital Signs, click to edit/add: Vital Signs - 24 hr 05/09/23 11:32 05/09/23 11:35 05/09/23 13:51 Temperature 97.5 F L 97.4 F L Pulse Rate 60 55 L 69 Pulse Rate [Pulse Oximeter] Respiratory Rate 16 16 12 Blood Pressure 130/60 115/58 L 131/62 Blood Pressure [Left Arm] Pulse Oximetry 99 97 92 Oxygen Delivery Method Nasal Cannula Nasal Cannula Room Air Oxygen Flow Rate 2 2 05/09/23 13:55 05/09/23 14:00 05/09/23 14:05 Temperature 97.2 F L Pulse Rate 68 60 64 Pulse Rate [Pulse Oximeter] Respiratory Rate 14 14 12 Blood Pressure 141/67 H 136/63 145/64 H Blood Pressure [Left Arm] Pulse Oximetry 95 96 94 Oxygen Delivery Method OxyMask OxyMask OxyMask Oxygen Flow Rate 10 10 10 05/09/23 14:10 05/09/23 14:15 05/09/23 14:20 Temperature 97.3 F L Pulse Rate 68 70 66 Pulse Rate [Pulse Oximeter] Respiratory Rate 12 12 12 Blood Pressure 144/68 H 145/62 H 130/57 L Blood Pressure [Left Arm] Pulse Oximetry 94 94 94 Oxygen Delivery Method OxyMask OxyMask Room Air Oxygen Flow Rate 10 10 05/09/23 14:25 05/09/23 14:30 05/09/23 14:35 Temperature 97.3 F L Pulse Rate 65 69 66 Pulse Rate [Pulse Oximeter] Respiratory Rate 10 L 12 12 Blood Pressure 135/59 L 129/62 126/66 Blood Pressure [Left Arm] Pulse Oximetry 98 100 100 Oxygen Delivery Method OxyMask OxyMask Room Air Oxygen Flow Rate 10 10 05/09/23 14:40 05/09/23 14:44 05/09/23 14:53 Temperature 97.5 F L 96.0 F L Pulse Rate 61 63 59 L Pulse Rate [Pulse Oximeter] Respiratory Rate 10 L 14 18 Blood Pressure 123/56 L 132/57 L Blood Pressure [Left Arm] 139/60 Pulse Oximetry 94 94 Oxygen Delivery Method Room Air Room Air Oxygen Flow Rate 3 05/09/23 15:00 05/09/23 15:00 05/09/23 15:15 Temperature 96.0 F L 96.0 F L Pulse Rate Pulse Rate [Pulse Oximeter] 63 63 Respiratory Rate 18 18 Blood Pressure Blood Pressure [Left Arm] 154/74 H 137/72 Pulse Oximetry 97 100 94 Oxygen Delivery Method Room Air Oxygen Flow Rate 3 05/09/23 15:30 05/09/23 15:45 05/09/23 16:00 Temperature 96.7 F L 96.7 F L 96.7 F L Pulse Rate Pulse Rate [Pulse Oximeter] 61 65 67 Respiratory Rate 18 18 20 Blood Pressure Blood Pressure [Left Arm] 153/73 H 160/60 H 147/72 H Pulse Oximetry 92 95 95 Oxygen Delivery Method Room Air Room Air Room Air Oxygen Flow Rate 05/09/23 17:03 05/09/23 18:14 05/09/23 19:42 Temperature 97.6 F 97.6 F 97 F L Pulse Rate Pulse Rate [Pulse Oximeter] 69 79 79 Respiratory Rate 20 20 18 Blood Pressure Blood Pressure [Left Arm] 154/75 H 169/76 H 144/90 H Pulse Oximetry 95 95 Oxygen Delivery Method Nasal Cannula Nasal Cannula Room Air Oxygen Flow Rate 2 2 05/09/23 23:30 05/09/23 23:30 05/09/23 23:30 Temperature 98.1 F Pulse Rate Pulse Rate [Pulse Oximeter] 75 75 Respiratory Rate 18 18 Blood Pressure Blood Pressure [Left Arm] 159/75 H Pulse Oximetry 94 94 Oxygen Delivery Method Room Air Oxygen Flow Rate 0 05/10/23 03:00 05/10/23 07:45 Temperature 97.3 F L 97.6 F Pulse Rate Pulse Rate [Pulse Oximeter] 77 68 Respiratory Rate 16 16 Blood Pressure Blood Pressure [Left Arm] 149/70 H 165/65 H Pulse Oximetry 96 96 Oxygen Delivery Method Room Air Room Air Oxygen Flow Rate Assessment and Plan Assessment and plan (1) History of arthroplasty of right knee: Problem details: Dr. Lu 05/09/2023. Routine postoperative management with pain control and therapy. Resume Xarelto for VTE prophylaxis as well as stroke prophylaxis for AFib Status: Acute (2) Chronic anticoagulation: Problem details: on Xarelto for history of AFib. Continue Xarelto for AFib and VTE prophylaxis Status: Acute Plan - Complete 23 hour perioperative antibiotics. - PT/OT consult for education and assistance. - Social work consult for discharge planning - Prescribed analgesics as needed - DVT prophylaxis: Rivaroxaban 20 mg daily, bilateral knee high Erwin Hose stockings and SCDs. 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 - Anticipation is for discharge to home with spouse today, 05/10/2023 if the patient remains medically stable, pain is controlled, and they are safe with mobilization.
--- NOTE | 2023-05-10 11:04 | PC.NURSE ---
Discharge Note: The patient is in good condition upon discharge. Patient worked with therapies... reporting mild pain this morning good relief with oxy. R knee dressing is CDI with minimal edema. TEDS in place as well as cyrocuff... All belongings were sent with the patient. Discharge teaching was given regarding s/s of infection, blood clot prevention, and the importance of icing and elevating his R leg. Discharged home with @ [id number] RN
--- NOTE | 2023-05-10 11:19 | REH.OT ---
Pt. discharged home prior to OT evaluation. Pt. was moving well and will have spouse's assistnace at home.
== END 2023-05-10 10:40 | disposition home or self-care (01) ==
LOC: OR 08:58 → MEDSURG 09:00
PROVIDERS: PCP Family Medicine; Visit Provider Orthopaedic Surgery Sports Medicine
PROC: (CPT 27447; principal; 2023-05-09 10:45)
DX: M17.11 Unilateral primary osteoarthritis, right knee (principal); G89.18 Other acute postprocedural pain; I48.0 Paroxysmal atrial fibrillation; I48.92 Unspecified atrial flutter; Z79.01 Long term (current) use of anticoagulants; I25.10 Atherosclerotic heart disease of native coronary artery without angina pectoris
CPT/HCPCS: 27447; 01402; 36415; 64447; 64454; 73560; 76942; 82565; 84132; 84295; 84520; 85025; 97110; 97116; 99100; A9270; C1776; J0330; J0690; J1100; J1170; J2175; J2250; J2405; J2704; J2795; J3010; J7120

== ENCOUNTER 2023-06-09 09:45 | Outpatient (RCR) | payer MEDICARE, OTHER, SELFPAY ==
--- NOTE | 2023-05-05 11:21 | PT.OPEX ---
PT [place] [facility] Eval initial eval requires signature PT [facility] Start: 05/05/23 07:55 Freq: Status: Active Protocol: Document 05/05/23 07:56 TRIXIE (Rec: 05/05/23 11:16 TRIXIE [id number]) E-signed By Manuel Chin DPT Physical Therapy Outpatient Evaluation Insurance Information Recert Due Date 07/29/23 Insurance Name Medicare B Medical Diagnosis R knee oa Treating Diagnosis R knee pain muscle weakness Referring MD Daniel lacey Subjective Subjective Harshal comes into clinic for his pre op visit for R TKA on 05/09/23. States he lives in a two story home with his who will be the primary person to help him during his recovery. States the knee pain has progressively been getting worse and limiting him with more activity ie walking . Does own a FWW along with SPC but did discuss potentially obtaining a toilet riser along with grab bar for his shower. Date of Surgery (If applicable) 05/09/23 Current Work Status Retired Objective Other/Pertinent Objective GAIT/FUNCTIONAL MOBILITY decreased pace, increased weight shift away from R leg decreased step length KNEE ROM R 5-119 LLE MMT: Hip flexion: R 5/5 L 5/5 Hip abduction: R 4-/5 L 4-/5 Knee flexion: R 5/5 L5 /5 Knee extension: R4+5/5 L4+ /5 Assessment Assessment/Impression Pt is a 77 yr old male who presents with concerns of R knee pain . Signs and symptoms likely indicating / consistent with R knee OA . Patient also has notable objective findings including limited ROM, impaired balance, decreased strength also likely contributing to the problem. Patient is a good candidate for skilled therapy to target deficits described above. Skilled PT intervention is necessary for use of therapeutic exercise manual therapy, neuromuscular re- education, gait training, and therapeutic activity. Functional impairments include difficulty with: walking standing driving stairs. See appropriate sections of PT eval for complete list of goals and POC. D/C plan and criteria is for pt to achieve the goals as listed below or until max rehab potential is met. Pt was agreeable with plan of care and goals established Plan of Care Rehabilitation Potential Good Physical Therapy Goals TKA GOALS STG (within 6 weeks ) 1) Pt will improve knee AROM at least 0 to 90-100 for improved sit to stand transfers 2) Pt will demonstrate negative extensor lag during straight leg raise exercise with ability to complete at least 15 reps with 5 sec hold to improve strength for ambulation 3) Patient will demonstrate/ report ability to walk for 15- 20 minutes w/SPC with pain level <1/10, to allow for community and household ambulation. LTG: (within 12 weeks) 1) Pt will be indep with HEP for long term care phlebotomist management of pain/symptoms 2) Pt will improve knee AROM at least 0 to 120 for improved sit to stand transfers 3) Patient will ascend/descend at least 12 steps using single rail and reciprocal pattern to improve ease of mobility at home/community 4) Patient will demonstrate/ report ability to walk for 15- 20 minutes w/o AD with pain level <1/10, to allow for community and household ambulation. Coordination/Communication With Referral Source Treatment Plan/Direct Interventions Gait Training,Joint Mobilization,Manual Therapy, Neuromuscular Re-ed,Self-Care/ Home Management,Therapeutic Activities,Therapeutic Exercises Frequency/Duration 1-2 visits a week for 6-12 weeks Patient Will Be Discharged From Therapy Completion of LTG(s), Independent w/HEP, Independently Progressing Evaluation Billing Untimed Code Treatment Minutes 30 Complexity Low Certification Information Physician Comment/Change : Physician NPI Number #
== END 2023-07-26 14:40 | disposition home or self-care (01) ==
PROVIDERS: PCP Family Medicine; Visit Provider Orthopaedic Surgery Sports Medicine
DX: M17.11 Unilateral primary osteoarthritis, right knee (principal); Z96.651 Presence of right artificial knee joint; M25.561 Pain in right knee; M62.81 Muscle weakness (generalized); Z51.89 Encounter for other specified aftercare
CPT/HCPCS: 97110; 97112; 97116; 97140; 97161; 97164

== ENCOUNTER 2023-10-24 03:42 | Emergency (ER) | payer MEDICARE, OTHER, SELFPAY ==
[2023-10-24 03:50] VITALS: BP 202/83; PULSE 78; RESP 16; TEMP 36.8; O2SAT 98; BMI 30.8
[2023-10-24 04:00] VITALS: O2SAT 99
--- NOTE | 2023-10-24 04:14 | XR_ITS ---
Patient: CONY SALAZAR Facility:?[facility] Patient ID:?[id number] Site Patient ID:?[id number]. Site :?[id number] Study:?XRay-Chest 2 VIEW-10/24/2023 4:34:10 AM Ordering Physician:GEM Final Report: INDICATION: Chest pressure COMPARISON: 03 December 2021 TECHNIQUE: 24 October 2023, two-view examination FINDINGS: TUBES AND LINES: None. HEART AND MEDIASTINUM: Mildly enlarged heart unchanged in appearance. Status post TAVR. LUNGS AND PLEURAL SPACES: Vascular congestion pattern without overt edema.The pleural spaces are unremarkable. OSSEOUS STRUCTURES: Age-appropriate appearance. No acute focal finding. IMPRESSION: Vascular congestion pattern without overt edema. Mildly enlarged heart unchanged in appearance. Status post TAVR. Dictated by Jordy Cam MD @ 10/24/2023 4:40:36 AM Signed by:?Jordy Cam MD @10/24/2023 4:40:36 AM (Electronic Signature)
--- NOTE | 2023-10-24 04:21 | ED.GENADULT ---
HPI - General Adult General Chief complaint: Arrhythmia/Palpitations Stated complaint: AFIB Time Seen by Provider: 10/24/23 04:01 Source: patient Mode of arrival: ambulatory Limitations: no limitations History of Present Illness HPI narrative: 70-year-old male with prior history of a flutter presents to the emergency department for evaluation of possible arrhythmia. Reports that this has been going on for about half of the day. He also has a history of frequent PACs, he has been evaluated by Cardiology multiple times actually has a follow-up echo next month. He reports that he was cardioverted 2 years ago and thinks that it felt similar. He recalls feeling much better after the cardioversion and thinks we should do this again today. He is anticoagulated on Xarelto. He says that he has ongoing issues with chest pain and shortness of breath on exertion. He has a history of prior aortic valve replacement 5 years ago and reports that there were no complications from this. He sees cardiology team regularly. When I review his previous records and see that he was in a flutter 2 years ago and that today he is in sinus rhythm with just some PACs, he gets frustrated and says ?well I can not sleep, so you need to do something about it?. He denies anxiety, denies epigastric pain. No fever, no productive cough or significant shortness of breath. He had a boxed processed type meal for dinner which is out of character for him but it sounds like he was having these PACs prior to this even. No symptoms of infection, dysuria, stool changes. Denies any recent medicine changes. He states that he took his extra flecainide at 2:30 a.m. this morning which is about 2 hours prior to arrival with no significant relief of symptoms. Last cardioversion November of 2021, notes reviewed. Reports that he has had an angiogram and stress echo in the past. It sounds like this was probably about 5 years ago, just before the aortic valve replacement. He has not had bypass surgery or any interventions on his coronary arteries. Took his blood pressure and reported that it was high. Denies neurological changes. Past medical history notable for BPH, starting on Flomax about 4 months ago. Otherwise a flutter, anticoagulated on Xarelto, rate controlled on diltiazem, flecainide and also takes hydrochlorothiazide. ROS notable for the nonspecific symptoms as described above, otherwise denies any focal complaints times 12 systems. Related Data Home Medications Medication Instructions Recorded Confirmed cholecalciferol (vitamin D3) 50 2,000 unit PO DAILY 01/05/22 08/12/23 mcg (2,000 unit) capsule (Vitamin D3) cpap 01/05/22 08/12/23 doxazosin 8 mg tablet 8 mg PO HS 01/05/22 08/12/23 hydrochlorothiazide 25 mg tablet 25 mg PO DAILY 01/05/22 08/12/23 multivitamin (Multiple Vitamins 1 tab PO DAILY 01/05/22 08/12/23 tablet) omega-3 fatty acids 500 mg capsule 500 mg PO DAILY 01/05/22 08/12/23 rosuvastatin 20 mg tablet (Crestor) 20 mg PO HS 01/05/22 08/12/23 saw palmetto 450 mg capsule 450 mg PO DAILY 01/05/22 08/12/23 turmeric 400 mg capsule 400 mg PO QDAY 01/05/22 08/12/23 vitamin A-vitamin C-vit E-min 1 tab PO DAILY 01/05/22 08/12/23 tablet amoxicillin 500 mg capsule 2,000 mg PO ONCE 01/06/22 08/12/23 diltiazem HCl 120 mg 120 mg PO DAILY 01/06/22 08/12/23 capsule,extended release 24 hr flecainide 50 mg tablet 50 mg PO Q12H 01/06/22 08/12/23 glucosamine-chondroitin 500 mg-400 1 tab PO DAILY 04/12/22 08/12/23 mg tablet (Cosamin DS) rivaroxaban 20 mg tablet (Xarelto) 20 mg PO QPM 07/13/22 08/12/23 Previous Rx's Medication Instructions Recorded lorazepam 0.5 mg tablet 0.5 mg PO QHS PRN #5 tabs 10/24/23 Allergies Allergy/AdvReac Type Severity Reaction Status Date / Time losartan Allergy Unknown Verified 08/12/23 11:27 dabigatran etexilate Allergy felt Verified 08/12/23 11:27 [From Pradaxa] poorly. ok on xarelto lisinopril AdvReac Mild Cough Verified 08/12/23 11:27 [facility] Medical History Chronic anticoagulation ?Z79.01 - joint terminal attack controller (current) use of anticoagulants (ICD-10) Heart failure due to valvular disease ?I50.9 - Heart failure, unspecified (ICD-10) ?I38 - Endocarditis, valve unspecified (ICD-10) Chronic kidney disease ?N18.9 - Chronic kidney disease, unspecified (ICD-10) Tear of medial meniscus of right knee ?S83.241A - Other tear of medial meniscus, current injury, right knee, initial encounter (ICD-10) Osteoarthritis of right knee ?M17.11 - Unilateral primary osteoarthritis, right knee (ICD-10) Tachycardia ?R00.0 - Tachycardia, unspecified (ICD-10) PAC (premature atrial contraction) ?I49.1 - Atrial premature depolarization (ICD-10) GERD (gastroesophageal reflux disease) ?K21.9 - Gastro-esophageal reflux disease without esophagitis (ICD-10) Sleep apnea ?G47.30 - Sleep apnea, unspecified (ICD-10) Hypertension ?I10 - Essential (primary) hypertension (ICD-10) Irregular heart beat ?I49.9 - Cardiac arrhythmia, unspecified (ICD-10) Hyperlipidemia ?E78.5 - Hyperlipidemia, unspecified (ICD-10) Cardiac arrhythmia ?I49.9 - Cardiac arrhythmia, unspecified (ICD-10) Tinnitus ?H93.19 - Tinnitus, unspecified ear (ICD-10) Surgical History History of arthroplasty of right knee (05/09/23) ?Z96.651 - Presence of right artificial knee joint (ICD-10) Hx of left cataract extraction (11/17/22) ?Z98.42 - Cataract extraction status, left eye (ICD-10) History of right cataract surgery (11/03/22) ?Z98.41 - Cataract extraction status, right eye (ICD-10) Hx of atrioventricular megan ablation ?Z98.890 - Other specified postprocedural states (ICD-10) Hx of hemorrhoidectomy ?Z98.890 - Other specified postprocedural states (ICD-10) Hx of hernia repair ?Z98.890 - Other specified postprocedural states (ICD-10) ?Z87.19 - Personal history of other diseases of the digestive system (ICD-10) H/O arthroscopy of shoulder (04/14/22) ?Z98.890 - Other specified postprocedural states (ICD-10) H/O heart artery stent (09/13/08) ?Z95.5 - Presence of coronary angioplasty implant and graft (ICD-10) Family History Father Throat cancer Mother Heart problem Social History Narrative: , retired, former smoker (quit 1975) He lives with his [facility]. He lives in a two-story house with the bedroom and bathroom upstairs. Main living area, kitchen and bathroom downstairs. What is your current living situation?: I presently have a place to live In the past 12 months, utilities in danger of being shut off: no In past 12 months, lack of transportation kept you from medical appts, meetings, work, or getting things needed for daily living: no In the past 12 mos, have been you worried that your food would run out before you had money to buy more?: never true In the past 12 mos, the food you bought just didn't last and you didn't have money to buy more?: never true Smoking Status: Former smoker What tobacco products do you use: cigarettes Smoking quit date/years: >15 years ago Do you use any of these nicotine containing products: None Second hand tobacco smoke exposure: No How often do you have a drink containing alcohol: monthly or less Alcohol type: beer How many standard drinks containing alcohol do you have on a typical day: 3 or 4 How often do you have six or more drinks on one occasion: Never AUDIT-C Alcohol total score: 2 Non-prescribed substance use: denies use Caffeine: Yes Are you now , , , , never or living with a partner: Social isolation score (0-1 are the most socially isolated patients): 1 How often does anyone, including family, friends and others, physically hurt you: never How often does anyone, including family, friends and others, insult or talk down to you: never How often does anyone, including family, friends and others, threaten you with harm: never How often does anyone, including family, friends and others, scream or curse at you: never Exam Const: Vital Signs, click to edit/add: Vital Signs - 24 hr 10/24/23 03:50 Temperature 98.2 F Pulse Rate [Pulse Oximeter] 78 Respiratory Rate 16 Blood Pressure [Ri ght Upper Arm] 202/83 H Pulse Oximetry 98 Oxygen Delivery Me thod Room Air Documenting provider has reviewed patient's vital signs: yes Other: He is a little irritable, mild memory impairment evident. Requires occasional redirection but then can recall events better. HENMT: Common normals: normocephalic Head and scalp: normocephalic Face and sinus: normal facial exam Mouth: oral and palatal mucosa normal Eye: Common normals: conjunctivae normal General eye: normal appearance of both eyes Conjunctiva: conjunctiva(e) normal Neck & C-Spine: Common normals: no lymphadenopathy General: normal visual inspection Resp: Common normals: normal respiratory effort, no use of accessory muscles and clear to auscultation bilaterally Effort & inspection: able to speak in complete sentences Auscultation: clear to auscultation bilaterally Cardio: Common normals: regular rate, regular rhythm, S1 normal heart sound and S2 normal heart sound Rate: regular rate Rhythm: regular rhythm Heart sounds: S1 normal and S2 normal GI: Common normals: Normal to inspection, nondistended, normoactive bowel sounds present, soft to palpation, non-tender, no hepatosplenomegaly and no masses Palpation: soft and no hepatosplenomegaly Extremity: Other: Trace bilateral pitting edema, equal Neuro: Speech: speech normal Gait (neuro): normal gait Motor exam: no movement abnormalities noted Psych: Appearance: grossly normal Insight: fair Judgement: fair Skin: Common normals: no rashes or lesions noted General skin exam: no rashes or lesions noted Course Course ED Course: EKG quickly collected, clearly showing sinus rhythm. Patient is not in a flutter. I did compare the EKG side by side with November of 2021 and clearly it is quite different. He does have occasional PACs but not more often than every 20 beats or so. Differential diagnosis including acute coronary syndrome, symptomatic PACs, heart failure, electrolyte abnormality, anemia, medication side effect, among others. He denies a chance of anxiety. Could certainly be GERD as well. Will start with basic labs, electrolytes, cardiac nurse and chest x-ray. At this time, I do not think he would benefit from cardioversion and did clearly explained this to him which seem to frustrate him more. Ultimately, if results are not consistent with a reversible process, he may benefit from gentle sleep aid and primary care follow-up. Reevaluation(s) Time of Reevaluation #1: 05:21 Reevaluation #1: Patient had fallen asleep. Repeat blood pressure 150s over 80s. I woke him to review results. His PACs have slowed down considerably. Still no signs of dangerous arrhythmia. Labs look excellent. He is still frustrated by the PACs and would like something done. I counseled him that this will be an ongoing problem and will flare up from time to time. If he has persistent symptoms, discussion of increased diltiazem with his primary care team or professor of theology would be encouraged. He can continue to use the flecainide if he has breakthrough symptoms. I discussed gentle sleep aid to use once in a while if he is bothered by these PACs. He really does seem quite frustrated by them. Unfortunately, I think doxepin or Flexeril would worsen his urinary symptoms and risk dangerous retention. I worry about a long-acting medication as well. He may be a good candidate for and has a pain if this is an ongoing problem but I selected lorazepam because I think that this will be a very rare need for him. Recommended 0.5 mg nightly if symptomatic from PACs to casting machine operator helper with sleep. Strongly encouraged 10 mg of melatonin also. No more than twice monthly on the lorazepam and if any ongoing follow-up is needed, default to his primary care team. He will keep his appointment for his echo in a couple of weeks and come back to the emergency department if he has exertional symptoms, worsening, dizziness, syncope, neurological changes or any of the other alarm symptoms that we discussed. He verbalized understanding and agreement. Vital Signs Vital signs: Initial Vital Signs Temperature 98.2 F 10/24/23 03:50 Temperature Source Temporal Artery Scan 10/24/23 03:50 Pulse Rate 78 10/24/23 03:50 Respiratory Rate 16 10/24/23 03:50 Blood Pressure 202/83 H 10/24/23 03:50 Blood Pressure Mean 122 H 10/24/23 03:50 Blood Pressure Position Sitting 10/24/23 03:50 Pulse Oximetry 98 10/24/23 03:50 Oxygen Delivery Method Room Air 10/24/23 03:50 Vital Signs Temperature 98.2 F 10/24/23 03:50 Pulse Rate 78 10/24/23 03:50 Respiratory Rate 16 10/24/23 03:50 Blood Pressure 202/83 H 10/24/23 03:50 Pulse Oximetry 98 10/24/23 03:50 Oxygen Delivery Method Room Air 10/24/23 03:50 Temperature 98.2 F 10/24/23 03:50 Pulse Rate 78 10/24/23 03:50 Respiratory Rate 16 10/24/23 03:50 Blood Pressure 202/83 H 10/24/23 03:50 Pulse Oximetry 98 10/24/23 03:50 Oxygen Delivery Method Room Air 10/24/23 03:50 Medical Decision Making Lab Data Lab results reviewed: Yes I reviewed the patient's lab results Lab results narrative: Reassuring. Labs: Lab Results 10/24/23 Range/Units 04:20 WBC 6.72 (4.50-11.00) K/uL RBC 3.57 L (4.30-5.90) m/uL Hgb 10.9 L (13.5-17.5) gm/dL Hct 32.7 L (37.0-53.0) % MCV 92 (80-100) fL MCH 31 (26-34) pg MCHC 33 (32-36) gm/dL RDW Coeff of [place] 12.6 (11.5-15.5) % Plt Count 176 (140-440) K/uL Neut % (Auto) 63.7 (42.0-72.0) % Lymph % (Auto) 21.7 (20-44) % [place] % (Auto) 9.7 (0.0-11.0) % Eos % (Auto) 3.6 (0.0-7.0) % Baso % (Auto) 0.4 (0.0-3.0) % Neut # (Auto) 4.28 (1.7-7.0) K/uL Lymph # (Auto) 1.46 (0.90-2.90) K/uL [place] # (Auto) 0.70 (0.00-0.90) K/UL Eos # (Auto) 0.24 (0.00-0.50) K/uL Baso # (Auto) 0.03 (0.00-0.30) K/uL Abs Immat Gran (auto) 0.06 (0.00-0.30) K/uL Imm/Tot Granulo (auto) 0.9 % Sodium 141 (135-149) mmol/L Potassium 3.8 (3.6-5.1) mmol/L Chloride 108 (96-114) mmol/L Carbon Dioxide 28 (20-32) mmol/L Anion Gap 5 L (7-15) mEq/L BUN 18 (7-30) mg/dL Creatinine 1.3 (0.5-1.5) mg/dL Estimated Creat Clear 48.35 Estimated GFR 56 ml/min Glucose 106 (60-115) mg/dL Calcium 9.3 (8.4-10.6) mg/dL Magnesium 1.9 (1.5-2.6) mg/dL Total Bilirubin 0.5 (0.1-1.5) mg/dL AST 32 (12-35) U/L ALT 20 (4-50) U/L Alkaline Phosphatase 77 (40-150) U/L Troponin I < 0.01 L (0.01-0.04) ng/mL NT-Pro-B Natriuret Pep 394 pg/mL Total Protein 6.7 (6.0-8.3) g/dL Albumin 4.0 (3.3-5.0) g/dL POC Troponin I 0.01 (0.01-0.04) ng/ml ECG Data Attestation: I personally reviewed and interpreted this ECG as follows: Prior ECG tracings: available for review (Comparison November of 2021 when he had a flutter and also preop from 23 which was sinus rhythm) Interpretation: Normal sinus rhythm with a few PACs. Rate currently 81, no significant ST or T-wave abnormalities. Normal axis and intervals otherwise. Discharge Plan Discharge Clinical Impression: Atrial premature contractions Patient Disposition: Home w/ Parent or Adult Condition: Improved Instructions: Premature Atrial Contractions (ED) Additional Instructions: As we discussed, there are no signs of atrial flutter or the previous abnormal rhythm that you had a couple of years ago. There are no signs of a blocked artery, heart failure or other complication today. Your electrolytes, kidney function, liver function and all infection markers are also normal. This is great news. We do see several PACs, as you know, they are not dangerous but can be quite frustrating. These can be triggered by viral illnesses, lack of sleep, heartburn, anxiety alcohol, many things. Your blood pressure has improved significantly without any interventions here in the ED. I would recommend that you keep taking your current medications exactly as scheduled. You keep your appointment for your follow-up echo in a few weeks. If you continue to have frequent symptoms, discussed the dose adjustment with your professor of theology for your diltiazem or other medications. I have recommended a gentle sleep aid that you can use on rare occasion if you cannot sleep due to the frustrating PACs. The safest option would be to use [id number] melatonin 10 mg at bedtime. If this is not effective for you, you may use the prescription I have given. Try to use this very sparingly, no more than a couple of times per month. If this is not meeting her needs, please discuss with your primary care provider. You may resume all typical activities with no restrictions. Activity Level: No Restrictions Discharge Diet: Regular Prescriptions: New lorazepam 0.5 mg tablet 0.5 mg PO QHS PRNQty: 5 0RF Rx Instructions: Use sparingly, no more than a couple of times per month. May use with 10 mg melatonin. No Action (DME) cpap 0 .Route .MEDSUPPLY multivitamin [Multiple Vitamins] Tablet 1 tab PO DAILY saw palmetto 450 mg capsule 450 mg PO DAILY Rx Instructions: give with food (meal/snack) turmeric 400 mg capsule 400 mg PO QDAY omega-3 fatty acids 500 mg capsule 500 mg PO DAILY vitamin A-vitamin C-vit E-min Tablet 1 tab PO DAILY cholecalciferol (vitamin D3) [Vitamin D3] 50 mcg (2,000 unit) capsule 2,000 unit PO DAILY doxazosin 8 mg tablet 8 mg PO HS hydrochlorothiazide 25 mg tablet 25 mg PO DAILY rosuvastatin [Crestor] 20 mg tablet 20 mg PO HS diltiazem HCl 120 mg capsule,extended release 24hr 120 mg PO DAILY flecainide 50 mg tablet 50 mg PO Q12H amoxicillin 500 mg capsule 2,000 mg PO ONCE Patient Comments: TAKE 4 CAPSULES BY MOUTH 1 HOUR BEFORE PROCEDURE Xarelto 20 mg tablet 20 mg PO QPM glucosamine-chondroitin [Cosamin DS] 500-400 mg tablet 1 tab PO DAILY Follow Up/Referrals: Allen Gonzalez MD [Primary Care Provider] - Stand Alone Forms: [employer] Info Instructions
--- OUTSIDE RECORDS SUMMARY | 2023-10-24 04:26 | XMS_ITS | Clinical Summary ---
Author Name Unknown Organization [facility] Address [place], [place] [address] Care Team Providers Care Dolly Driver Name Role Phone Allen Gonzalez MD Primary Care Provider Allen Winslow MD Unavailable [phone] Allergies Active Allergy Reactions Criticality Noted Date Comments Lisinopril Cough Low 06/25/2008 Losartan Other - Describe In Comment Field 05/11/2012 Exercise intolerance. Dabigatran Etexilate Other - Describe In Comment Field 07/07/2022 [place] poorly. Ok on Xarelto. Medications Medication Sig Dispensed Refills Start Date End Date Status MULTIVITAMIN ORAL Take 1 Tablet by mouth once daily. 0 Active Vitamin A-Vitamin C-Vitamin E tab Take 1 Tablet by mouth once daily. 0 09/12/2009 Active Ubidecarenone-Ome ga 3-Vit E 25-150-200 mg-mg-unit cap Take 1 Capsule by mouth once daily. 0 09/12/2009 Active glucosamine-chond roitin, 500-400 mg, (COSAMIN DS 500/400) 500-400 mg Cap Take 1 Capsule by mouth once daily. 0 09/12/2009 Active cholecalciferol (VITAMIN D3) 2,000 unit capsule Take 1 capsule by mouth once daily. 0 12/02/2009 Active Saw [place] 1,000 mg capsule Take by mouth once daily. 0 03/29/2012 Active turmeric 400 mg cap Take by mouth once daily. 0 09/13/2018 Active medication order composer Take 2 tablets by mouth once daily. Apple cider vinegar tablets. 480 mg tablets. Active amoxicillin (AMOXIL) 500 mg tabletIndications :S/P TAVR (transcatheter aortic valve replacement) 4 tabs oral one hour before procedure. 12 Tablet 1 07/07/2022 Active dilTIAZem CD (CARDIZEM CD) 120 mg extended release 24 hr capsuleIndication s:Atrial fibrillation and flutter (HC) Take 1 Capsule (120 mg) by mouth once daily. 90 Capsule 3 10/11/2022 Active rivaroxaban (Xarelto) 20 mg tabletIndications :Atrial fibrillation and flutter (HC) Take 1 Tablet (20 mg) by mouth once daily with evening meal. 90 Tablet 3 10/11/2022 Active tamsulosin (FLOMAX) 0.4 mg capsuleIndication s:BPH without urinary obstruction Take 1 Capsule (0.4 mg) by mouth once daily after a meal. 90 Capsule 3 06/24/2023 Active rosuvastatin (CRESTOR) 20 mg tabletIndications :Mixed hyperlipidemia, HD (arteriosclerotic heart disease) TAKE 1 TABLET BY MOUTH AT BEDTIME 90 Tablet 2 07/14/2023 Active doxazosin (CARDURA) 8 mg tabletIndications :Essential hypertension Take 1 Tablet (8 mg) by mouth at bedtime. 90 Tablet 3 07/18/2023 Active hydroCHLOROthiazi de (HCTZ) 25 mg tabletIndications :Essential hypertension Take 1 Tablet (25 mg) by mouth once daily. 90 Tablet 3 07/18/2023 Active CPAPIndications:O SA (obstructive sleep apnea) CPAP machine for home use at pressure 5cm, nasal mask x1/3month with nasal pillows x 2/mo 1 Each 11 10/11/2023 Active flecainide (TAMBOCOR) 50 mg tabletIndications :Atrial fibrillation and flutter (HC) TAKE 1 TABLET BY MOUTH EVERY 12 HOURS 180 Tablet 3 10/13/2023 Active flecainide (TAMBOCOR) 50 mg tabletIndications :Atrial fibrillation and flutter (HC) Take 1 Tablet (50 mg) by mouth every 12 hours. 180 Tablet 3 10/11/2022 10/13/19 24 Discontinued CPAPIndications:O SA (obstructive sleep apnea) CPAP machine for home use at pressure 5cm, nasal mask x1/3month with nasal pillows x 2/mo 1 Each 11 07/04/2023 10/11/19 24 Discontinued(Reo rder (E-cancel not sent)) Active Problems Patient Care Coordination No te Formatting of this note migh t be different from the original. HF/Structural Research Eligibility Review Date: 09/13/18 Age: 73 Insurance: Medicare EF: 63% 07/21/18 Valve/Imaging: Moderate-severe Comments: STS 2% Structural: Low Risk CAP: Possible Low Risk Bicuspid: No, d/t valve not bicuspid Problem Noted Date Diagnosed Date Atrial fibrillation and flutter 09/10/2021 Bilateral lower extremity edema 10/14/2020 TAVR using bioprosthesis 05/29/2019 05/29/2019 Overview: [address] Campos CAD, s/p IMANI 08/2018 and 02/201910/11/2018 Mitral regurgitation 06/06/2013 NELLI 05/19/2012 AHI-5, REM supine 37 05/26/2012 Premature Atrial Contractions; symptomatic 08/26 Unspecified essential hypertension 07/12/2008 Mixed hyperlipidemia 07/12/2008 Inguinal hernia 07/12/2008 Sensorineural hearing loss, bilateral 07/28/2007 Subjective tinnitus 07/28/2007 Resolved Problems Problem Noted Date Diagnosed Date Resolved Date Acute respiratory failure with hypoxia 09/10/2021 04/06/2022 Acute pulmonary edema 09/10/20212021 Aortic valve stenosis 07/13/20182021 Screen for colon cancer 05/19/201003/27 Overview: Colonoscopy 04/2010 normal repeat in 10 years Hx of Paroxysmal atrial fibrillation 11/21/2009 04/11/2020 Overview: -05/25/10 S/P a fib ablation (dr Dockery) Palpitations 05/19/2007 08/10/2021 Cardiac dysrhythmia, unspecified 08/10/2021 Overview: palpatation Other chest pain 08/10/2021 BOWDEN (dyspnea on exertion) Encounters Date Type Department Care Team Description 10/12/2023 Orders Only [facility] Scanner 1 scan: (1-Ord) [facility] 10/12/2023 Refill [facility] [address] [place] [address] Jordy Dockery MD Refill Request (Flecainide) 10/11/2023 10:30 AM CDT Office Visit [facility] [address] [place] [address] Scott Ybarra MD Sleep Follow-up (cpap) 10/11/2023 Travel 09/28/2023 11:20 AM CDT Office Visit [address] [place] [address] Alida Sousa NP CV Electrophysiology Est (Annual F/U; Pt. states that they are doing well, no specific concerns. ) 09/28/2023 Travel from Last 3 Months Immunizations Name Administration Dates Next Due COVID-19 vaccine ([email or web address]-Bio NTech 30mcg/0.3mL) 12YO+ JACOBO-SUCROSE PF, MDV 09/30/2021 COVID-19 vaccine ([email or web address][employer]com-Bio NTech 30mcg/0.3mL) PF, MDV 09/06/2020,08/16/2020 Influenza A (H1N1), Inactivated 07/08/2009 Influenza Virus, Unspecified 05/13/2015 Influenza, High-dose Inactivated 03/14/2019,03/27,06/03/2017 Influenza, High-dose Quadriv alent Inactivated 04/18/2023,03/18/2022,04/01/2021 Influenza, IIV3 (Age >=3 years) 04/30/20 15,04/16/2014,05/04/2013,05/01,04/27/2010 Influenza, IIV4 07/08/2009 Influenza, Inactivated AIIV4 (Age 65+ Years) Preserv Free 03/28/2020 Pneumococcal Poly,23-Valent (Pneumovax) 07/07/2018 Pneumococcal conj 13-Valent (Prevnar 13) 06/02/2016 RSV, Recombinant ADJ Reconst ituted (Arexvy 120MCG/0.5mL) 03/28/2023 Tdap 08/27/2017,12/30/2009 Zoster (Shingrix-RZV, recombinant) 06/07/2022, Zoster (Zostavax-ZVL, live) 06/27/2013 Family History Medical History Relation Name Comments No Known Problems Father No Known Problems Mother Anesthesia Problem No Family History Cancer-colon No Family History Relation Name Status Comments Father Mother Social History Tobacco Use Types Packs/Day Years Used Date Smoking Tobacco: Former Cigarettes 1 4 0 06/27/1971 - 06/27/1975 Smokeless Tobacco: Never Tobacco Cessation:Counseling Given: Yes Alcohol Use Standard Drinks/Week Comments Yes 3 (1 standard drink = 0.6 oz pur e alcohol) A few beers a week PHQ-2 Answer Date Recorded PHQ-2 TOTAL SCORE 0 07/13/2021 Social Connections Answer Date Recorded Frequency of Communication with Friends and Fami ly 0 02/11/2023 Financial Resource Strain Answer Date R ecorded Difficulty of Paying Living Expenses 3 02/11/2023 Difficulty of Paying Living Expenses Not on file 02/11/2023 Food Insecurity Answer Date Recorded Worried About Running Out of Food in the Last Ye ar 1 02/11/2023 Transportation Needs Answer Date Record ed Lack of Transportation (Medical) 1 02/11/2023 Housing Stability Answer Date Recorded Unable to Pay for Housing in the Last Year 1 02/11/2023 Sex and Gender Information Value Date Recorded Sex Assigned at Not on file Gender Identity Not on file Sexual Orientation Not on file Obstetrics History Last Filed Vital Signs Vital Sign Reading Time Taken Comments Blood Pressure 170/72 10/11/2023 10:26 AM CDT Pulse 60 10/11/2023 10:26 AM CDT Temperature 36.4 ??C (97.6 ??F) 07/18/2023 8:49 AM CS T Respiratory Rate 18 06/16/2023 2:37 PM DJ INSTRUCTOR Oxygen Saturation 98% 10/11/2023 10:26 AM CDT Inhaled Oxygen Concentration - - Weight 100.7 kg (222 lb) 10/11/2023 10:26 AM CDT Height 177.8 cm (5' 10) 09/28/2023 11:14 AM CDT Body Mass Index 31.85 09/28/2023 11:14 AM CDT Plan of Treatment Upcoming Encounters Date Type Department Care Team (Late st Contact Info) Description 10/31/2023 2:00 PM CDT [facility] Visit [facility] [address] [place] [address] Health Maintenance Due Date Last Done Comments Medicare Wellness for age 65+ 2010 Depression screening for age 12+ 07/13/2022 07/13/2021, 06/25/2019, 06/22/2019, Additional history exists Influenza for age 65+ 02/26/2024 04/18/2023 , 03/18/2022, 04/01/2021, Additional history exists BMI (ht and wt on same day) for age 18+ 09/27/2024 09/28/2023, 07/18/2023, 04/26/2023, Additional history exists Tetanus booster 08/28/2027 08/27/2017, 12/30/2009 Tdap Completed 08/27/2017, 12/30/2009 Pneumococcal series for age 65+ Completed 9, 06/02/2016 Hepatitis C screening for ag e 18-79 Completed 07/08/2021 Zoster (shingles) series for age 50+ Completed 06/07/2022, 03/18/2022, 06/27/2013 Fecal testing non-DNA (FIT,FOBT,iFOBT) for age 45-75 Discontinued 07/24/2022, 07/18/2021 COVID-19 vaccine series Completed 03/28/20, 04/06/2022, 09/30/2021, Additional history exists Procedures Procedure Name Priority Date/Time Associated Diagnosis Comments SCAN-EYE EXAM 10/12/2023 12:00 AM CDT EKG 12 LEAD Routine 09/28/2023 10:19 AM CDT Atrial fibrillation and flutter (HC) OCCULT BLOOD IFOBT STOOL Routine 07/24/2022 11:56 AM DJ INSTRUCTOR Screening for colon cancer ANTI HCV Routine 07/08/2021 9:52 AM DJ INSTRUCTOR Need for hepatitis C screening test from Last 3 Months or Most Recently Relevant to Health Maintenance Results * SCAN-EYE EXAM (10/12/2023 12:00 AM CDT) Scanner OTHER * EKG 12 LEAD (09/28/2023 10:19 AM CDT) Interpretation Sinus bradycardia Left axis deviation Abnormal ECG When compared with ECG of 11-OCT-2022 10:14, No significant change was found Ventricular Rate 50 BPM Atrial Rate 50 BPM P-R Interval 180 ms QRS Duration 104 ms QT 452 ms QTc 412 ms P [place] 72 degrees R [place] -36 degrees T [place] 55 degrees 09/28/2023 10:1 9 AM CDT 09/29/2023 10:27 AM CDT Alida Sousa MINES SAFETY ENGINEER EKG ORD * OCCULT BLOOD IFOBT STOOL (07/24/2022 11:56 AM DJ INSTRUCTOR) Pathologist [facility] STOOL BLOOD ,IFOBT Negative Negative 07/30/2022 9:18 AM DJ INSTRUCTOR [facility] [place] Stool STOOL SPECIMEN / Unknown Non-Blood / Unknown 07/24/2022 11:56 AM DJ INSTRUCTOR 07/29/2022 11:56 AM DJ INSTRUCTOR Allen Gonzalez MD LABORATORY [facility] [place] [address] [place] [address], * ANTI HCV (07/08/2021 9:52 AM DJ INSTRUCTOR) Pathologist [facility] HEPATITIS C ANTIBODY Non-React asiya Non-React asiya 07/08/2021 6:37 PM DJ INSTRUCTOR [facility] Comment:Antibodies to HCV no t detected; does not exclude the possibility of exposure to HCV. Blood BLOOD SPECIMEN / Unknown Venipuncture / Unknown 07/08/2021 9:52 AM DJ INSTRUCTOR 07/08/2021 9:52 AM DJ INSTRUCTOR Allen Gonzalez MD SEND [facility] [address] [place] [address], from Last 3 Months or Most Recently Relevant to Health Maintenance Advance Directives * Full Code (Latest Code Status on File) Date Activated Date Inactivated Comments 09/11/2021 1:22 AM 09/13/2021 2:24 PM Question Answer Comments Code Status Discussion: Reviewed Preferences * Full Code Date Activated Date Inactivated Comments 09/09/2021 9:16 AM 09/10/2021 12:39 PM Question Answer Comments Code Status Discussion: Other (specify in commen ts): * Full Code Date Activated Date Inactivated Comments 05/29/2019 4:11 PM 05/30/2019 3:55 PM * Full Code Date Activated Date Inactivated Comments 03/16/2019 8:32 AM 03/17/2019 3:00 PM * Full Code Date Activated Date Inactivated Comments 09/15/2018 9:31 AM 09/15/2018 6:40 PM Care Teams Dolly Driver Relationship Specialty Start Date End Date Allen Gonzalez MD [address] [place] [address] PCP - General 10/05/05 Allen Winsolw MD [id number] [place] [address] Cardiology Cardiovascular Disease 12/02/09
[2023-10-24 04:37] LABS: Troponin, Point-of-Care* 0.01 ng/ml (0.01-0.04)
[2023-10-24 04:39] LABS: Basophils Absolute Auto 0.03 K/uL (0.00-0.30); Basophils Percent Auto 0.4 % (0.0-3.0); Eosinophils Absolute Auto 0.24 K/uL (0.00-0.50); Eosinophils Percent Auto 3.6 % (0.0-7.0); Hematocrit 32.7 % (37.0-53.0); Hemoglobin* 10.9 gm/dL (13.5-17.5); Immature Granulocytes Abs Auto 0.06 K/uL (0.00-0.30); Immature Granulocytes Pct Auto 0.9 %; Lymphocytes Absolute Auto 1.46 K/uL (0.90-2.90); Lymphocytes Percent Auto 21.7 % (20-44); Mean Corpuscular HGB Conc 33 gm/dL (32-36); Mean Corpuscular Hemoglobin 31 pg (26-34); Mean Corpuscular Volume 92 fL (80-100); Monocytes Percent Auto 9.7 % (0.0-11.0); Neutrophils Absolute Auto 4.28 K/uL (1.7-7.0); Neutrophils Percent Auto 63.7 % (42.0-72.0); Platelet Count* 176 K/uL (140-440); RDW Coefficient of Variation % 12.6 % (11.5-15.5); Red Blood Count 3.57 m/uL (4.30-5.90); White Blood Count* 6.72 K/uL (4.50-11.00)
[2023-10-24 04:42] LABS: Slide Review Reflex No
[2023-10-24 04:46] LABS: Chloride* 108 mmol/L (96-114); Potassium* 3.8 mmol/L (3.6-5.1); Sodium* 141 mmol/L (135-149)
[2023-10-24 04:48] LABS: Bilirubin Total* 0.5 mg/dL (0.1-1.5); Creatinine* 1.3 mg/dL (0.5-1.5); Est. Creatinine Clearance* 48.35; Estimated Glomerular Filt Rate 56 ml/min
[2023-10-24 04:49] LABS: Alanine Aminotransferase* 20 U/L (4-50); Alkaline Phosphatase* 77 U/L (40-150); Anion Gap 5 mEq/L (7-15); Aspartate Amino Transferase* 32 U/L (12-35); Blood Urea Nitrogen* 18 mg/dL (7-30); Calcium* 9.3 mg/dL (8.4-10.6); Carbon Dioxide* 28 mmol/L (20-32); Glucose* 106 mg/dL (60-115); Magnesium* 1.9 mg/dL (1.5-2.6); Total Protein* 6.7 g/dL (6.0-8.3)
[2023-10-24 05:02] LABS: NT Pro B Type NatriureticPept* 394 pg/mL; Troponin I* < 0.01 ng/mL (0.01-0.04)
[2023-10-24 05:28] VITALS: BP 157/84; PULSE 85; RESP 16; TEMP 36.8; O2SAT 98
[2023-10-24 05:36] VITALS: BP 157/84; PULSE 85; RESP 16; TEMP 36.8
== END 2023-10-24 05:37 | disposition home or self-care (01) ==
PROVIDERS: Emergency Provider Family Medicine; PCP Family Medicine
DX: I49.3 Ventricular premature depolarization (principal)
CPT/HCPCS: 36415; 71046; 80053; 83735; 83880; 84484; 85025; 93005; 94761; 99284

== ENCOUNTER 2023-12-17 09:05 | Emergency (ER) | payer MEDICARE, OTHER, SELFPAY ==
[2023-12-17 09:16] VITALS: BP 174/64; PULSE 56; RESP 18; TEMP 36.1; O2SAT 98; BMI 31.3
--- NOTE | 2023-12-17 09:29 | CRLHL7_ITS ---
For Patients: As a result of the Century Cures Act, medical imaging exams and procedure reports are released immediately into your electronic medical record. You may view this report before your referring provider. If you have questions, please contact your health care provider. INDICATION: Low back pain TECHNIQUE: Lumbar spine 2 view. COMPARISON: None. IMPRESSION: Dextrocurvature of the upper lumbar spine with associated moderate degenerate intervertebral disc space narrowing. Grade 1 anterolisthesis L4 on L5. Moderate lower facet arthropathy. No acute compression deformity. Vascular calcifications. Dictated by Maycol Lara MD @ 12/17/2023 10:04:09 AM (Electronically Signed)
--- NOTE | 2023-12-17 09:46 | ED_ITS ---
HPI - Back Pain/Injury General Date Seen: 12/17/23 Chief Complaint: Back Injury/Pain Stated Complaint: back pain Time Seen by Provider: 12/17/23 09:29 Source: patient Mode of arrival: ambulatory Limitations: no limitations History of Present Illness HPI Narrative: Patient is a 78-year-old male presenting for low back pain. States he woke up early this morning around 02:00 no stable off back pain he tried to go to the bathroom. The last time he took was leftover oxycodone from previous knee surgery 8 months prior. Woke up again a few hours later was still having a lot of back pain so he took another oxycodone. States the pain is now a 2/10 and he is able ambulate well without issues. States he has some left hip pain for the past couple days has been favoring the other hip and does wonder if that might cause back pain. States the hip pain is relatively mild. States he had similar back pain about 8 months ago and was given Tizanidine which helped resolve the symptoms. Denies saddle anesthesia, loss of bowel or bladder control, urinary retention, radiation of the pain, fevers. Related Data Home Medications ?Medication ?Instructions ?Recorded ?Confirmed cholecalciferol (vitamin D3) 50 2,000 unit PO DAILY 01/05/22 12/17/23 mcg (2,000 unit) capsule (Vitamin D3) cpap 01/05/22 10/25/23 doxazosin 8 mg tablet 8 mg PO HS 01/05/22 12/17/23 hydrochlorothiazide 25 mg tablet 25 mg PO DAILY 01/05/22 12/17/23 multivitamin (Multiple Vitamins 1 tab PO DAILY 01/05/22 10/25/23 tablet) omega-3 fatty acids 500 mg capsule 500 mg PO DAILY 01/05/22 12/17/23 rosuvastatin 20 mg tablet (Crestor) 20 mg PO HS 01/05/22 10/25/23 saw palmetto 450 mg capsule 450 mg PO DAILY 01/05/22 10/25/23 turmeric 400 mg capsule 400 mg PO QDAY 01/05/22 10/25/23 vitamin A-vitamin C-vit E-min 1 tab PO DAILY 01/05/22 10/25/23 tablet amoxicillin 500 mg capsule 2,000 mg PO ONCE 01/06/22 12/17/23 diltiazem HCl 120 mg 120 mg PO DAILY 01/06/22 12/17/23 capsule,extended release 24 hr flecainide 50 mg tablet 50 mg PO Q12H 01/06/22 12/17/23 glucosamine-chondroitin 500 mg-400 1 tab PO DAILY 04/12/22 12/17/23 mg tablet (Cosamin DS) rivaroxaban 20 mg tablet (Xarelto) 20 mg PO QPM 07/13/22 12/17/23 tamsulosin 0.4 mg capsule 0.4 mg PO DAILY 10/25/23 12/17/23 Previous Rx's ?Medication ?Instructions ?Recorded lorazepam 0.5 mg tablet 0.5 mg PO QHS PRN #5 tabs 10/24/23 tizanidine 2 mg capsule 2 mg PO TID PRN muscle spasticity 12/17/23 #30 caps Allergies Allergy/AdvReac Type Severity Reaction Status Date / Time losartan Allergy Unknown Verified 12/17/23 09:18 dabigatran etexilate Allergy felt Verified 12/17/23 09:18 [From Pradaxa] poorly. ok on xarelto lisinopril AdvReac Mild Cough Verified 12/17/23 09:18 Review of Systems Narrative: Pertinent systems reviewed and were negative unless stated in HPI PFSH PFS Medical History Chronic anticoagulation ?Z79.01 - retirement (current) use of anticoagulants (ICD-10) Heart failure due to valvular disease ?I50.9 - Heart failure, unspecified (ICD-10) ?I38 - Endocarditis, valve unspecified (ICD-10) Chronic kidney disease ?N18.9 - Chronic kidney disease, unspecified (ICD-10) Tear of medial meniscus of right knee ?S83.241A - Other tear of medial meniscus, current injury, right knee, initial encounter (ICD-10) Osteoarthritis of right knee ?M17.11 - Unilateral primary osteoarthritis, right knee (ICD-10) Tachycardia ?R00.0 - Tachycardia, unspecified (ICD-10) PAC (premature atrial contraction) ?I49.1 - Atrial premature depolarization (ICD-10) GERD (gastroesophageal reflux disease) ?K21.9 - Gastro-esophageal reflux disease without esophagitis (ICD-10) Sleep apnea ?G47.30 - Sleep apnea, unspecified (ICD-10) Hypertension ?I10 - Essential (primary) hypertension (ICD-10) Irregular heart beat ?I49.9 - Cardiac arrhythmia, unspecified (ICD-10) Hyperlipidemia ?E78.5 - Hyperlipidemia, unspecified (ICD-10) Cardiac arrhythmia ?I49.9 - Cardiac arrhythmia, unspecified (ICD-10) Tinnitus ?H93.19 - Tinnitus, unspecified ear (ICD-10) Surgical History History of arthroplasty of right knee (05/09/23) ?Z96.651 - Presence of right artificial knee joint (ICD-10) Hx of left cataract extraction (11/17/22) ?Z98.42 - Cataract extraction status, left eye (ICD-10) History of right cataract surgery (11/03/22) ?Z98.41 - Cataract extraction status, right eye (ICD-10) Hx of atrioventricular megan ablation ?Z98.890 - Other specified postprocedural states (ICD-10) Hx of hemorrhoidectomy ?Z98.890 - Other specified postprocedural states (ICD-10) Hx of hernia repair ?Z98.890 - Other specified postprocedural states (ICD-10) ?Z87.19 - Personal history of other diseases of the digestive system (ICD-10) H/O arthroscopy of shoulder (04/14/22) ?Z98.890 - Other specified postprocedural states (ICD-10) H/O heart artery stent (09/13/08) ?Z95.5 - Presence of coronary angioplasty implant and graft (ICD-10) Family History Father Throat cancer Mother Heart problem Social History Narrative: , retired, former smoker (quit 1975) He lives with his [facility]. He lives in a two-story house with the bedroom and bathroom upstairs. Main living area, kitchen and bathroom downstairs. What is your current living situation?: I presently have a place to live In the past 12 months, utilities in danger of being shut off: no In past 12 months, lack of transportation kept you from medical appts, meetings, work, or getting things needed for daily living: no In the past 12 mos, have been you worried that your food would run out before you had money to buy more?: never true In the past 12 mos, the food you bought just didn't last and you didn't have money to buy more?: never true Smoking Status: Never smoker Second hand tobacco smoke exposure: No How often do you have a drink containing alcohol: 4 or more times a week Alcohol type: beer How many standard drinks containing alcohol do you have on a typical day: 1 or 2 AUDIT-C Alcohol total score: 4 Non-prescribed substance use: denies use Caffeine: Yes Are you now , , , , never or living with a partner: Social isolation score (0-1 are the most socially isolated patients): 1 How often does anyone, including family, friends and others, physically hurt you : never How often does anyone, including family, friends and others, insult or talk down to you: never How often does anyone, including family, friends and others, threaten you with harm: never How often does anyone, including family, friends and others, scream or curse at you: never Exam Narrative: Exam Narrative: Const: Well-nourished, Well-developed, in mild distress Eyes: PERRL, no conjunctival injection, and symmetrical lids HENT: Atraumatic external nose and ears. Moist mucous membranes. MSK:Extremities w/o deformity, Normal Active ROM, some tenderness about L2-L3. Skin: Warm, Dry. No rashes or lesions. Neuro: Normal Muscle tone, No focal neurological deficits. Psych: Awake, Alert, & Oriented x3. Appropriate mood and affect. Const: Vital Signs, click to edit/add: Vital Signs - 24 hr 12/17/23 09:16 Temperature 96.9 F L Pulse Rate [Pulse Oximeter] 56 L Respiratory Rate 18 Blood Pressure [Ri ght Upper Arm] 174/64 H Pulse Oximetry 98 Oxygen Delivery Me thod Room Air Course Vital Signs Vital signs: Initial Vital Signs Temperature 96.9 F L 12/17/23 09:16 Temperature Source Temporal Artery Scan 12/17/23 09:16 Pulse Rate 56 L 12/17/23 09:16 Respiratory Rate 18 12/17/23 09:16 Blood Pressure 174/64 H 12/17/23 09:16 Blood Pressure Mean 100 12/17/23 09:16 Blood Pressure Position Sitting 12/17/23 09:16 Pulse Oximetry 98 12/17/23 09:16 Oxygen Delivery Method Room Air 12/17/23 09:16 Vital Signs Temperature 96.9 F L 12/17/23 09:16 Pulse Rate 56 L 12/17/23 09:16 Respiratory Rate 18 12/17/23 09:16 Blood Pressure 174/64 H 12/17/23 09:16 Pulse Oximetry 98 12/17/23 09:16 Oxygen Delivery Method Room Air 12/17/23 09:16 Temperature 96.9 F L 12/17/23 09:16 Pulse Rate 56 L 12/17/23 09:16 Respiratory Rate 18 12/17/23 09:16 Blood Pressure 174/64 H 12/17/23 09:16 Pulse Oximetry 98 12/17/23 09:16 Oxygen Delivery Method Room Air 12/17/23 09:16 MDM - Back Pain/Injury MDM Narrative Medical decision making narrative: Patient is a 78-year-old male presenting for low back pain. Has tenderness about L2-L3. This seems to be musculoskeletal in nature as it does not radiate anywhere. If it was a herniated disc I would expect some sciatica symptoms. Seems very unlikely to be diskitis as he has no signs of infection. No red flag symptoms for cauda equina. Will do a x-ray to look for any abnormalities. X- ray reviewed by myself and the radiologist showed no concerning abnormalities. He will be discharged with tizanidine. Informed him to follow up his primary care provider symptoms persist. He is agreeable to this plan. Imaging Data Lumbar spine x-ray: Attestation: I have reviewed the pertinent imaging results. Radiologist's impression: Dextrocurvature of the upper lumbar spine with associated moderate degenerate intervertebral disc space narrowing. Grade 1 anterolisthesis L4 on L5. Moderate lower facet arthropathy. No acute compression deformity. Vascular calcifications. Dictated by Maycol Lara MD @ 12/17/2023 10:04:09 AM Discharge Plan Discharge Clinical Impression: Low back pain Qualifiers: Chronicity: acute Back pain laterality: midline Sciatica presence: without sciatica Qualified Code(s): M54.50 - Low back pain, unspecified Patient Disposition: Home, Self-Care Condition: Stable Instructions: Acute Low Back Pain (ED) Additional Instructions: Take Tylenol and ibuprofen for pain along with that tizanidine. Be careful so as the tizanidine can have some sedating effects. Return to emergency department for new or worsening symptoms. If back pain persists follow-up with primary care provider. Prescriptions: New tizanidine 2 mg capsule 2 mg PO TID PRN (Reason: muscle spasticity) Qty: 30 0RF Rx Instructions: Take 2 mg every 6-8 hours. Can increase does up to 4-6 mg every 6-8 hours if initial dose is not helping. Do not take more than 3 times in a 24 hour period or more than 36 mg in a day No Action (DME) cpap 0 .Route .MEDSUPPLY multivitamin [Multiple Vitamins] Tablet 1 tab PO DAILY saw palmetto 450 mg capsule 450 mg PO DAILY Rx Instructions: give with food (meal/snack) turmeric 400 mg capsule 400 mg PO QDAY omega-3 fatty acids 500 mg capsule 500 mg PO DAILY vitamin A-vitamin C-vit E-min Tablet 1 tab PO DAILY cholecalciferol (vitamin D3) [Vitamin D3] 50 mcg (2,000 unit) capsule 2,000 unit PO DAILY doxazosin 8 mg tablet 8 mg PO HS hydrochlorothiazide 25 mg tablet 25 mg PO DAILY rosuvastatin [Crestor] 20 mg tablet 20 mg PO HS diltiazem HCl 120 mg capsule,extended release 24hr 120 mg PO DAILY flecainide 50 mg tablet 50 mg PO Q12H amoxicillin 500 mg capsule 2,000 mg PO ONCE Patient Comments: TAKE 4 CAPSULES BY MOUTH 1 HOUR BEFORE PROCEDURE Xarelto 20 mg tablet 20 mg PO QPM tamsulosin 0.4 mg capsule 0.4 mg PO DAILY glucosamine-chondroitin [Cosamin DS] 500-400 mg tablet 1 tab PO DAILY lorazepam 0.5 mg tablet 0.5 mg PO QHS PRNQty: 5 0RF Rx Instructions: Use sparingly, no more than a couple of times per month. May use with 10 mg melatonin. Follow Up/Referrals: Allen Gonzalez MD [Primary Care Provider] - Stand Alone Forms: [employer] Info Instructions
--- OUTSIDE RECORDS SUMMARY | 2023-12-17 09:51 | XMS_ITS | Clinical Summary ---
Author Organization [facility] Address [place], [place] [address] Care Team Providers Care Kineseologist Name Role Phone Allen Gonzalez MD Primary Care Provider Allen Winslow MD Unavailable Allergies Active Allergy Reactions Criticality Noted Date Comments Lisinopril Cough Low 06/25/2008 Losartan Other - Describe In Comment Field 05/11/2012 Exercise intolerance. Dabigatran Etexilate Other - Describe In Comment Field 07/07/2022 [place] poorly. Ok on Xarelto. Medications Medication Sig Dispensed Refills Start Date End Date Status MULTIVITAMIN ORAL Take 1 Tablet by mouth once daily. 0 Active Vitamin A-Vitamin C-Vitamin E tab Take 1 Tablet by mouth once daily. 0 09/12/2009 Active Ubidecarenone-Omeg a 3-Vit E 25-150-200 mg-mg-unit cap Take 1 Capsule by mouth once daily. 0 09/12/2009 Active glucosamine-chondr oitin, 500-400 mg, (COSAMIN DS 500/400) 500-400 mg Cap Take 1 Capsule by mouth once daily. 0 09/12/2009 Active cholecalciferol (VITAMIN D3) 2,000 unit capsule Take 1 capsule by mouth once daily. 0 12/02/2009 Active Saw [place] 1,000 mg capsule Take by mouth once daily. 0 03/29/2012 Active turmeric 400 mg cap Take by mouth once daily. 0 09/13/2018 Active medication order composer Take 2 tablets by mouth once daily. Apple cider vinegar tablets. 480 mg tablets. Active amoxicillin (AMOXIL) 500 mg tabletIndications: S/P TAVR (transcatheter aortic valve replacement) 4 tabs oral one hour before procedure. 12 Tablet 1 07/07/2022 Active rivaroxaban (Xarelto) 20 mg tabletIndications: Atrial fibrillation and flutter (HC) Take 1 Tablet (20 mg) by mouth once daily with evening meal. 90 Tablet 3 10/11/2022 Active tamsulosin (FLOMAX) 0.4 mg capsuleIndications :BPH without urinary obstruction Take 1 Capsule (0.4 mg) by mouth once daily after a meal. 90 Capsule 3 06/24/2023 Active rosuvastatin (CRESTOR) 20 mg tabletIndications: Mixed hyperlipidemia,ERIC D (arteriosclerotic heart disease) TAKE 1 TABLET BY MOUTH AT BEDTIME 90 Tablet 2 07/14/2023 Active doxazosin (CARDURA) 8 mg tabletIndications: Essential hypertension Take 1 Tablet (8 mg) by mouth at bedtime. 90 Tablet 3 07/18/2023 Active hydroCHLOROthiazid e (HCTZ) 25 mg tabletIndications: Essential hypertension Take 1 Tablet (25 mg) by mouth once daily. 90 Tablet 3 07/18/2023 Active CPAPIndications:OS A (obstructive sleep apnea) CPAP machine for home use at pressure 5cm, nasal mask x1/3month with nasal pillows x 2/mo 1 Each 11 10/11/2023 Active flecainide (TAMBOCOR) 50 mg tabletIndications: Atrial fibrillation and flutter (HC) TAKE 1 TABLET BY MOUTH EVERY 12 HOURS 180 Tablet 3 10/13/2023 Active dilTIAZem CD (CARDIZEM CD) 120 mg extended release 24 hr capsuleIndications :Atrial fibrillation and flutter (HC) TAKE 1 CAPSULE BY MOUTH ONCE DAILY. 90 Capsule 3 11/25/2023 Active dilTIAZem CD (CARDIZEM CD) 120 mg extended release 24 hr capsuleIndications :Atrial fibrillation and flutter (HC) Take 1 Capsule (120 mg) by mouth once daily. 90 Capsule 3 10/11/2022 4 Discontinued Active Problems Patient Care Coordination No te [...] Encounters Date Type Department Care Team Description 11/25/2023 Refill [facility] [facility] [address] [place] [phone] Jordy Dockery MD Refill Request (Diltiazem Cd) 10/31/2023 2:00 PM CDT Ancillary Procedure [facility] [address] [place] [phone] 10/31/2023 Travel 10/24/2023 Orders Only [facility] Scanner 1 scan: (1-Ord) NEETA, XR CHEST 2V, 10/24/2023 10/24/2023 Telephone [facility] [address] [place] [address] Allen Gonzalez MD Appointment Request (ZIO PATCH XT - weekly to monthly symptoms. [[id number]]) 10/24/2023 Telephone [facility] [address] [phone] Jordy Dockery MD Concerns 10/12/2023 Orders Only [facility] Scanner 1 scan: (1-Ord) [facility] 10/12/2023 Refill [facility] [address] [facility] [address] [place] [phone] Jordy Dockery MD Refill Request (Flecainide) 10/11/2023 10:30 AM CDT Office Visit [facility] [address] [place] [address] Scott Ybarra MD Sleep Follow-up (cpap) 10/11/2023 Travel 09/28/2023 11:20 AM CDT Office Visit [facility] Gris Willoughby [address] [place] [address] [address] [place] [address] Alida Espino NP CV Electrophysiology Est (Annual F/U; Pt. states that they are doing well, no specific concerns. ) 09/28/2023 Travel from Last 3 Months Immunizations Name Administration Dates Next Due COVID-19 vaccine (TapMyBack-Bio NTech 30mcg/0.3mL) 12YO+ JACOBO-SUCROSE JOSE PACE 09/30/2021 COVID-19 vaccine (TapMyBack-Bio NTech 30mcg/0.3mL) JOSE PACE 09/06/2020,08/16/2020 Influenza A (H1N1), Inactivated 07/08/2009 Influenza [...] T Respiratory Rate 18 06/16/2023 2:37 PM CONTROL SYSTEMS TECHNICIAN Oxygen Saturation 98% 10/11/2023 10:26 AM CDT Inhaled Oxygen Concentration - - Weight 100.7 kg (222 lb) 10/11/2023 10:26 AM CDT Height 177.8 cm (5' 10) 09/28/2023 11:14 AM CDT Body Mass Index 31.85 09/28/2023 11:14 AM CDT Plan of Treatment Health Maintenance Due Date Last Done Comments Medicare Wellness for age 65+ 2010 Depression screening for age 12+ 07/13/2022 07/13/2021, 06/25/2019, 06/22/2019, Additional history exists COVID-19 vaccine series ( season) 2023 03/28/2023, 04/06/2022, 09/30/2021, Additional history exists Influenza for age 65+ [...] (FIT,FOBT,iFOBT) for age 45-75 Discontinued 07/24/2022, 07/18/2021 Procedures Procedure Name Priority Date/Time Associated Diagnosis Comments EXTENDED HOLTER Routine 11/07/2023 Atrial fibrillation and flutter (HC) ECHO TTE COMPLETE WO CONTRAST Routine 10/31/2023 2:25 PM CDT Status post transcatheter aortic valve replacement (TAVR) using bioprosthesis SCAN-RADIOLOGY REPORT 10/24/2023 12:00 AM CDT SCAN-EYE EXAM 10/12/2023 12:00 AM CDT EKG 12 LEAD Routine 09/28/2023 10:19 AM CDT Atrial fibrillation and flutter (HC) OCCULT BLOOD IFOBT STOOL Routine 07/24/2022 11:56 AM CONTROL SYSTEMS TECHNICIAN Screening for colon cancer ANTI HCV Routine 07/08/2021 9:52 AM CONTROL SYSTEMS TECHNICIAN Need for hepatitis C screening test from Last 3 Months or Most Recently Relevant to Health Maintenance Results * ZIO PATCH XT - weekly to monthly symptoms. (11/07/2023) Jordy Dockery MD CARDIAC SERVICES ORD * ECHO TTE COMPLETE WO CONTRAST (10/31/2023 2:25 PM CDT) AORTIC VALVE MEAN PG 19 mmHg EJECTION FRACTION 69 % LVEDD 5.1 cm Anatomical Region Laterality Modality Ultrasound 10/31/2023 2:04 PM CDT Narrative 10/31/2023 2:46 PM CDT ECHOCARDIOGRAM CONY SALAZAR ?Accession#: ?? [id number] : ?1945 78 years Study Date: ?? 10/31/2023 2:04:41 PM Gender: M ? BP: ? 170/72 mmHg Height: 178.00 cm ? BSA: ?2.19 m? ? ? Weight: 101.00 kg ? Tech: ? MSR ?Referring MD: ALIDA ESPINO Site: ? [facility] Reading Location: Mobile OP Patient Location: Outpatient. Procedure: 2D, Color Doppler and Spectral Doppler. Indication for study: Status post transcatheter aortic valve replacement (TAVR) using bioprosthesis Cardiac Rhythm: Regular.Study quality: Fair. Final Impressions: 1. Normal left ventricular size, mildly increased wall thickness, normal global systolic function, calculated EF of 69 %. 2. Right ventricular cavity size is normal, global systolic RV function is normal. 3. Severely enlarged left atrium. 4. The aortic valve is S/P #26 mm Brendan 3 THV; the THV is well-seated and stable., no stenosis and trivial regurgitation. The aortic valve peak velocity is 2.9 m/s, the peak gradient is 33 mmHg, and the mean gradient is 19 mmHg. The aortic valve area is 1.94 cm? ? ? with a dimensionless index of 0.52. The stroke volume index is 55.1 ml/m? ? ?. 5. The mitral valve is sclerotic, mild to moderate mitral regurgitation. 6. Tricuspid valve is normal. 7. Mild-moderate tricuspid regurgitation. 8. No pericardial effusion. Chamber Sizes and Function Normal left ventricular size, mildly increased wall thickness, normal global systolic function, calculated EF of 69 %. Left atrial size is severely enlarged. Right ventricular cavity size is normal, global systolic RV function is normal. The right atrium is normal. The pulmonary artery is not well visualized. The sinus of Valsalva is not well visualized. The ascending aorta is normal sized. Valves, RV Pressures and Diastolic Function The aortic valve is S/P #26 mm Brendan 3 THV; the THV is well-seated and stable., no stenosis and trivial regurgitation. The mitral valve is sclerotic, mild to moderate mitral regurgitation. Normal diastolic function. The tricuspid valve is normal in structure. Tricuspid regurgitation is mild-moderate. The pulmonic valve is normal. Trace pulmonary regurgitation. Masses, Effusion, Shunts There is no pericardial effusion. The inferior vena cava is normal sized, respiratory size variation greater than 50%. Interatrial septum is not well visualized. MEASUREMENTS AND CALCULATIONS 2-D Measurements and LV Function: LVID (d) 5.1 cm Planimetered EF 69 % LVID (s) 3.2 cm LV FS% (2D) ? 38 % IVS (d) ??1.3 cm LVOT diameter ?? 2.2 cm LVPW (d) 1.3 cm HR ?86 bpm Asc Ao ?? 3.6 cm LA Vol index ?63 ml/m2 ?RV Max 4C (d) ?? 4.3 cm Diastology: Mitral ?Tissue Doppler E Peak 0.9 m/s ??e', Septum ? 0.10 m/s A Peak 0.3 m/s ??e', Lateral ?0.10 m/s E/A ?2.8 ?E/e' Average ?? 9.38 DT ? 175 msec Aortic Valve: Vmax ? 2.9 m/s ??EUGENIO (V) ?? 2.00 cm? AI P 1/2 326 msec VTI ?0.62 m ?? EUGENIO (I) ?? 1.94 cm? ? ? LVOT V max 1.5 m/s ??Max PG ?33 mmHg LVOT VTI ?? 0.32 m ?? Mean PG ?? 19 mmHg SV ? 121 ml ?? Dim Index 0.52 SV index ?? 55 ml/m? ? ? CO ?10.4 l/min ?CI ?4.7 l/min/m? ? ? Mitral Valve: MVA ?4.3 cm? ? ? MV P 1/2 51 msec Tricuspid Valve and estimated PA pressures: TAPSE 2.3 cm . This study was interpreted by an [facility] accredited facility. ??Final ?? Procedure Note Corina Worley, [facility] - 10/31/2023 ECHOCARDIOGRAM CONY SALAZAR : 1945 78 years Study Date: 10/31/2023 2:04:41 PM Gender: M BP: 170/72 mmHg Height: 178.00 cm BSA: 2.19 m? ? ? Weight: 101.00 kg Tech: MSR Referring MD: ALIDA ESPINO Site: [facility] Reading Location: Mobile OP Patient Location: Outpatient. Procedure: 2D, Color Doppler and Spectral Doppler. 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 Final Impressions: 1. Normal left ventricular size, mildly increased wall thickness, normalglobal systolic function, calculated EF of 69 %. 2. Right ventricular cavity size is normal, global systolic RV functionis normal. 3. Severely enlarged left atrium. 4. The aortic valve is S/P #26 mm Brendan 3 THV; the THV is well-seatedand stable., no stenosis and trivial regurgitation. The aortic valve peakvelocity is 2.9 m/s, the peak gradient is 33 mmHg, and the mean gradientis 19 mmHg. The aortic valve area is 1.94 cm? ? ? with a dimensionless indexof 0.52. The stroke volume index is 55.1 ml/m? ? ?. 5. The mitral valve is sclerotic, mild to moderate mitralregurgitation. 6. Tricuspid valve is normal. 7. Mild-moderate tricuspid regurgitation. 8. No pericardial effusion. Chamber Sizes and Function Normal left ventricular size, mildly increased wall thickness, normalglobal systolic function, calculated EF of 69 %. Left atrial size isseverely enlarged. Right ventricular cavity size is normal, globalsystolic RV function is normal. The right atrium is normal. The pulmonaryartery is not well visualized. The sinus of Valsalva is not wellvisualized. The ascending aorta is normal sized. Valves, RV Pressures and Diastolic Function The aortic valve is S/P #26 mm Brendan 3 THV; the THV is well-seated andstable., no stenosis and trivial regurgitation. The mitral valve issclerotic, mild to moderate mitral regurgitation. Normal diastolicfunction. The tricuspid valve is normal in structure. Tricuspidregurgitation is mild-moderate. The pulmonic valve is normal. Tracepulmonary regurgitation. Masses, Effusion, Shunts There is no pericardial effusion. The inferior vena cava is normal sized,respiratory size variation greater than 50%. Interatrial septum is notwell visualized. MEASUREMENTS AND CALCULATIONS 2-D Measurements and LV Function: LVID (d) 5.1 cm Planimetered EF 69 % LVID (s) 3.2 cm LV FS% (2D) 38 % IVS (d) 1.3 cm LVOT diameter 2.2 cm LVPW (d) 1.3 cm HR 86 bpm Asc Ao 3.6 cm LA Vol index 63 ml/m2 RV Max 4C (d) 4.3 cm Diastology: Mitral Tissue Doppler E Peak 0.9 m/s e', Septum 0.10 m/s A Peak 0.3 m/s e', Lateral 0.10 m/s E/A 2.8 E/e' Average 9.38 DT 175 msec Aortic Valve: Vmax 2.9 m/s EUGENIO (V) 2.00 cm? ? ? AI P 1/2 326 msec VTI 0.62 m EUGENIO (I) 1.94 cm? ? ? LVOT V max 1.5 m/s Max PG 33 mmHg LVOT VTI 0.32 m Mean PG 19 mmHg SV 121 ml Dim Index 0.52 SV index 55 ml/m? ? ? CO 10.4 l/min CI 4.7 l/min/m? ? ? Mitral Valve: MVA 4.3 cm? ? ? MV P 1/2 51 msec Tricuspid Valve and estimated PA pressures: TAPSE 2.3 cm . This study was interpreted by an [facility] accredited facility. Final Alida Espino RESAWYER ECHO ORD * SCAN-RADIOLOGY REPORT (10/24/2023 12:00 AM CDT) Anatomical Region Laterality Modality Other Scanner OTHER * SCAN-EYE EXAM (10/12/2023 12:00 AM CDT) Scanner OTHER * EKG 12 LEAD (09/28/2023 10:19 AM CDT) Interpretation Sinus bradycardia Left axis deviation Abnormal ECG When compared with ECG of 11-OCT-2022 10:14, No significant change was found Ventricular Rate 50 BPM Atrial Rate 50 BPM P-R Interval 180 ms QRS Duration 104 ms QT 452 ms QTc 412 ms P Gray 72 degrees R Gray -36 degrees T Gray 55 degrees 09/28/2023 10:1 9 AM CDT 09/29/2023 10:27 AM CDT Alida Espino RESAWYER EKG ORD * OCCULT BLOOD IFOBT STOOL (07/24/2022 11:56 AM CONTROL SYSTEMS TECHNICIAN) Pathologist [facility] STOOL BLOOD ,IFOBT Negative Negative 07/30/2022 9:18 AM CONTROL SYSTEMS TECHNICIAN [facility] Stool STOOL SPECIMEN / Unknown Non-Blood / Unknown 07/24/2022 11:56 AM CONTROL SYSTEMS TECHNICIAN 07/29/2022 11:56 AM CONTROL SYSTEMS TECHNICIAN Allen Gonzalez MD LABORATORY [facility] [address] [place] [address], * ANTI HCV (07/08/2021 9:52 AM CONTROL SYSTEMS TECHNICIAN) Pathologist [facility] HEPATITIS C ANTIBODY Non-React asiya Non-React asiya 07/08/2021 6:37 PM CONTROL SYSTEMS TECHNICIAN [facility] Comment:Antibodies to HCV no t detected; does not exclude the possibility of exposure to HCV. Blood BLOOD SPECIMEN / Unknown Venipuncture / Unknown 07/08/2021 9:52 AM CONTROL SYSTEMS TECHNICIAN 07/08/2021 9:52 AM CONTROL SYSTEMS TECHNICIAN Allen Gonzalez MD SEND OUTS [facility] [address] [place] [address], from Last 3 Months or Most Recently [...] 9:31 AM 09/15/2018 6:40 PM Care Teams Kineseologist Relationship Specialty Start Date End Date Allen Gonzalez MD [address] [place] [address] PCP - General 10/05/05 Allen Winslow MD [address] [place] [address] Cardiology Cardiovascular Disease 12/02/09
[2023-12-17 10:06] VITALS: BP 173/72; PULSE 62; RESP 16; O2SAT 98
[2023-12-17] MEDS: TIZANIDINE HCL 4 MG TABLET PO (10:22)
== END 2023-12-17 10:36 | disposition home or self-care (01) ==
PROVIDERS: Emergency Provider Student in an Organized Health Care Education/Training Program; PCP Family Medicine
DX: M54.50 Low back pain, unspecified (principal)
CPT/HCPCS: 72100; 99282; 99283; A9270

== ENCOUNTER 2024-05-05 04:49 | Emergency (ER) | payer MEDICARE, OTHER, SELFPAY ==
[2024-05-05] VITALS (17 sets, daily range): BP systolic 120–166; BP diastolic 62–97; PULSE 61–114; RESP 9–17; TEMP 36.1; O2SAT 95–100; BMI 30.7
--- NOTE | 2024-05-05 05:07 | ED_ITS ---
HPI - General Adult General Date Seen: 05/05/24 Chief complaint: Arrhythmia/Palpitations Stated complaint: a fib Time Seen by Provider: 05/05/24 05:05 History of Present Illness HPI narrative: 78-year-old male who has a past medical history of atrial flutter, coronary artery disease, previous aortic valve replacement, heart failure due to valvular disease, Per record he was seen in the ER [place] in a room 2023 for palpitations. According to that record he has a history of atrial flutter and was anticoagulated on Xarelto and had had previous cardioversion about 2 years ago. He also has flecainide and took an extra dose that day. In the ER he was found to have premature atrial contractions but not atrial flutter. Patient has been doing well. He does not have any other episodes of atrial flutter since then or even in the past couple of years. Yesterday morning at about 10:00 a.m. when he was golfing he felt himself go into a funny heart rhythm. He has been feeling palpitations ever since then. He is perhaps a little bit weak in vaguely lightheaded but not really having any other symptoms. No chest pain. No shortness of breath. No fainting spells. No nausea. He says that it is just an annoying feeling. He could not sleep tonight because his heart was beating irregularly. He has been waiting for his heart flip back to normal for 18 hours but just 1 flipped back so he came to the ER hoping that we could cardiovert him. He did take his flecainide 2 doses yesterday as normal. He is therapeutically anticoagulated on Xarelto and has not missed any doses. No change in his habits lately. No new medications. No new food. No recent illnesses. No vomiting. He had 2 cups of coffee yesterday morning, as he does every morning but no other new substances that would have triggered the flutter. According to his medical record from [facility] he is currently on Diltiazem CD 1 120 mg every 24 hours Flecainide 50 mg b.i.d. Xarelto 20 mg daily Hydrochlorothiazide 25 mg daily Rosuvastatin Ephraim benito Tamsulosin 0.4 mg daily Doxazosin 8 mg daily. Related Data Home Medications ?Medication ?Instructions ?Recorded ?Confirmed cholecalciferol (vitamin D3) 50 2,000 unit PO DAILY 01/05/22 04/25/24 mcg (2,000 unit) capsule (Vitamin D3) cpap 01/05/22 04/25/24 doxazosin 8 mg tablet 8 mg PO HS 01/05/22 04/25/24 hydrochlorothiazide 25 mg tablet 25 mg PO DAILY 01/05/22 04/25/24 multivitamin (Multiple Vitamins 1 tab PO DAILY 01/05/22 04/25/24 tablet) omega-3 fatty acids 500 mg capsule 500 mg PO DAILY 01/05/22 04/25/24 rosuvastatin 20 mg tablet (Crestor) 20 mg PO HS 01/05/22 04/25/24 saw palmetto 450 mg capsule 450 mg PO DAILY 01/05/22 04/25/24 turmeric 400 mg capsule 400 mg PO QDAY 01/05/22 04/25/24 vitamin A-vitamin C-vit E-min 1 tab PO DAILY 01/05/22 04/25/24 tablet amoxicillin 500 mg capsule 2,000 mg PO ONCE 01/06/22 04/25/24 diltiazem HCl 120 mg 120 mg PO DAILY 01/06/22 04/25/24 capsule,extended release 24 hr flecainide 50 mg tablet 50 mg PO Q12H 01/06/22 04/25/24 glucosamine-chondroitin 500 mg-400 1 tab PO DAILY 04/12/22 04/25/24 mg tablet (Cosamin DS) rivaroxaban 20 mg tablet (Xarelto) 20 mg PO QPM 07/13/22 04/25/24 tamsulosin 0.4 mg capsule 0.4 mg PO DAILY 10/25/23 04/25/24 loteprednol etabonate 0.5 % eye drp ophthalmic (eye) 04/17/24 04/25/24 drops,suspension Previous Rx's ?Medication ?Instructions ?Recorded tizanidine 2 mg capsule 2 mg PO TID PRN muscle spasticity 12/17/23 #30 caps Allergies Allergy/AdvReac Type Severity Reaction Status Date / Time dabigatran etexilate (From Allergy felt Verified 04/25/24 15:08 Pradaxa) poorly. ok on xarelto [facility] Medical History Chronic anticoagulation ?Z79.01 - long term acute care registered nurse (current) use of anticoagulants (ICD-10) Heart failure due to valvular disease ?I50.9 - Heart failure, unspecified (ICD-10) ?I38 - Endocarditis, valve unspecified (ICD-10) Chronic kidney disease ?N18.9 - Chronic kidney disease, unspecified (ICD-10) Tear of medial meniscus of right knee ?S83.241A - Other tear of medial meniscus, current injury, right knee, initial encounter (ICD-10) Osteoarthritis of right knee ?M17.11 - Unilateral primary osteoarthritis, right knee (ICD-10) Tachycardia ?R00.0 - Tachycardia, unspecified (ICD-10) PAC (premature atrial contraction) ?I49.1 - Atrial premature depolarization (ICD-10) GERD (gastroesophageal reflux disease) ?K21.9 - Gastro-esophageal reflux disease without esophagitis (ICD-10) Sleep apnea ?G47.30 - Sleep apnea, unspecified (ICD-10) Hypertension ?I10 - Essential (primary) hypertension (ICD-10) Irregular heart beat ?I49.9 - Cardiac arrhythmia, unspecified (ICD-10) Hyperlipidemia ?E78.5 - Hyperlipidemia, unspecified (ICD-10) Cardiac arrhythmia ?I49.9 - Cardiac arrhythmia, unspecified (ICD-10) Tinnitus ?H93.19 - Tinnitus, unspecified ear (ICD-10) Surgical History History of arthroplasty of right knee (05/09/23) ?Z96.651 - Presence of right artificial knee joint (ICD-10) Hx of left cataract extraction (11/17/22) ?Z98.42 - Cataract extraction status, left eye (ICD-10) History of right cataract surgery (11/03/22) ?Z98.41 - Cataract extraction status, right eye (ICD-10) Hx of atrioventricular megan ablation ?Z98.890 - Other specified postprocedural states (ICD-10) Hx of hemorrhoidectomy ?Z98.890 - Other specified postprocedural states (ICD-10) Hx of hernia repair ?Z98.890 - Other specified postprocedural states (ICD-10) ?Z87.19 - Personal history of other diseases of the digestive system (ICD-10) H/O arthroscopy of shoulder (04/14/22) ?Z98.890 - Other specified postprocedural states (ICD-10) H/O heart artery stent (09/13/08) ?Z95.5 - Presence of coronary angioplasty implant and graft (ICD-10) Family History Father Throat cancer Mother Heart problem Social History Narrative: , retired, former smoker (quit 1975) He lives with his [facility]. He lives in a two-story house with the bedroom and bathroom upstairs. Main living area, kitchen and bathroom downstairs. What is your current living situation?: I presently have a place to live In the past 12 months, utilities in danger of being shut off: no In past 12 months, lack of transportation kept you from medical appts, meetings, work, or getting things needed for daily living: no In the past 12 mos, have been you worried that your food would run out before you had money to buy more?: never true In the past 12 mos, the food you bought just didn't last and you didn't have money to buy more?: never true Smoking Status: Never smoker Second hand tobacco smoke exposure: No How often do you have a drink containing alcohol: 4 or more times a week Alcohol type: beer How many standard drinks containing alcohol do you have on a typical day: 1 or 2 AUDIT-C Alcohol total score: 4 Non-prescribed substance use: denies use Caffeine: Yes Are you now , , , , never or living with a partner: Social isolation score (0-1 are the most socially isolated patients): 1 How often does anyone, including family, friends and others, physically hurt you : never How often does anyone, including family, friends and others, insult or talk down to you: never How often does anyone, including family, friends and others, threaten you with harm: never How often does anyone, including family, friends and others, scream or curse at you: never Exam Narrative: Exam Narrative: Constitutional: Appears well-developed and well-nourished. Alert. Conversant. Non toxic. HENT: Head: Atraumatic. Nose: Nose normal. Mouth/Throat: Oral mucosa is clear and moist. no trismus. Pharynx normal. Eyes: Conjunctivae normal. EOM normal. Pupils equal, round, and reactive to light. No scleral icterus. Neck: Normal range of motion. Neck supple. No tracheal deviation present. Cardiovascular: Tachycardic, 105 on the monitor, generally a regular rhythm with occasional skipping beats that seem to correspond to brief episodes where the flutter changes from 2:1 conduction up to 4:1 conduction. No gallop. No friction rub. Systolic murmur heard. Symmetric radial and PT artery pulses Pulmonary/Chest: Effort normal. No stridor. No respiratory distress. No wheezes. No rales. No rhonchi . No tenderness. Abdominal: Soft.. No distension. No mass. No tenderness. No rebound. No guarding. Musculoskeletal: RUE: Normal range of motion. No tenderness. No deformity LUE: Normal range of motion. No tenderness. No deformity RLE: Normal range of motion. No edema. No tenderness. No deformity LLE: Normal range of motion. No edema. No tenderness. No deformity Neurological: Alert and oriented to person, place, and time. Normal strength. CN II-VII intact. No sensory deficit. GCS eye subscore is 4. GCS verbal subscore is 5. GCS motor subscore is 6. Normal coordination Skin: Skin is warm and dry. No rash noted. No pallor. Normal capillary refill. Psychiatric: Normal mood. Normal affect. Polite to me. He seems somewhat aggravated and annoyed by his flutter. Const: Vital Signs, click to edit/add: Vital Signs - 24 hr 05/05/24 04:52 05/05/24 05:12 05/05/24 05:12 Temperature 96.9 F L Pulse Rate 108 H Pulse Rate [Left P ulse Oximeter] 114 H Respiratory Rate 16 Blood Pressure Blood Pressure [Ri ght Upper Arm] 158/84 H Pulse Oximetry 97 98 97 Oxygen Delivery Me thod Room Air 05/05/24 05:20 05/05/24 05:28 05/05/24 05:40 Temperature Pulse Rate 105 H 105 H 107 H Pulse Rate [Left P ulse Oximeter] Respiratory Rate Blood Pressure 150/95 H Blood Pressure [Ri ght Upper Arm] Pulse Oximetry 98 98 97 Oxygen Delivery Me thod 05/05/24 05:42 05/05/24 05:43 05/05/24 06:02 Temperature Pulse Rate 100 107 H Pulse Rate [Left P ulse Oximeter] Respiratory Rate Blood Pressure 166/87 H 154/97 H Blood Pressure [Ri ght Upper Arm] Pulse Oximetry 97 98 Oxygen Delivery Me thod 05/05/24 06:22 05/05/24 06:24 05/05/24 06:40 Temperature Pulse Rate 71 91 Pulse Rate [Left P ulse Oximeter] Respiratory Rate 9 L Blood Pressure 164/81 H Blood Pressure [Ri ght Upper Arm] Pulse Oximetry 97 97 Oxygen Delivery Me thod 05/05/24 06:42 05/05/24 06:55 05/05/24 06:57 Temperature Pulse Rate 89 90 89 Pulse Rate [Left P ulse Oximeter] Respiratory Rate 13 13 9 L Blood Pressure 146/85 H 165/80 H 157/96 H Blood Pressure [Ri ght Upper Arm] Pulse Oximetry 97 96 100 Oxygen Delivery Me thod 05/05/24 07:00 05/05/24 07:02 05/05/24 07:03 Temperature Pulse Rate 63 63 61 Pulse Rate [Left P ulse Oximeter] Respiratory Rate 15 17 14 Blood Pressure 120/62 Blood Pressure [Ri ght Upper Arm] Pulse Oximetry 95 98 100 Oxygen Delivery Me thod Course Vital Signs Vital signs: Initial Vital Signs Temperature 96.9 F L 05/05/24 04:52 Temperature Source Temporal Artery Scan 05/05/24 04:52 Pulse Rate 114 H 05/05/24 04:52 Pulse Rhythm Regular 05/05/24 04:52 Respiratory Rate 16 05/05/24 04:52 Blood Pressure 158/84 H 05/05/24 04:52 Blood Pressure Mean 108 H 05/05/24 04:52 Blood Pressure Position Sitting 05/05/24 04:52 Pulse Oximetry 97 05/05/24 04:52 Oxygen Delivery Method Room Air 05/05/24 04:52 Vital Signs Temperature 96.9 F L 05/05/24 04:52 Pulse Rate 114 H 05/05/24 04:52 Respiratory Rate 16 05/05/24 04:52 Blood Pressure 158/84 H 05/05/24 04:52 Pulse Oximetry 97 05/05/24 04:52 Oxygen Delivery Method Room Air 05/05/24 04:52 Temperature 96.9 F L 05/05/24 04:52 Pulse Rate 61 05/05/24 07:03 Respiratory Rate 14 05/05/24 07:03 Blood Pressure 120/62 05/05/24 07:02 Pulse Oximetry 100 05/05/24 07:03 Oxygen Delivery Method Room Air 05/05/24 04:52 Medical Decision Making MDM Narrative Medical decision making narrative: Pleasant 78-year-old male with a complex previous heart history including pre vious aortic valve TAVR, history of atrial flutter with previous cardioversion and 2 previous ablations. He is currently managed on diltiazem, flecainide and on stroke prophylaxis with Xarelto. he presents to the ER tonight with 18 hours of palpitations and symptoms that he feel reminiscent of previous episodes of a flutter. He has not had any episodes like this for over 2 years, since his last cardioversion EKG and nurse monitoring here do show atrial flutter. Interestingly he has a variable AV conduction rate sometimes 2:1 and sometimes 4:1. Overall rate is slower than what is typically expected for 2:1 flutter. Heart rate tends to be around 100-110 rather than 150. He is otherwise hemodynamically stable. No chest pain. No shortness of breath. No signs of CHF. This is a stable arrhythmia, not an unstable 1 requiring immediate life-saving emergent cardioversion. Nonetheless with this arrhythmia, it does need expeditious evaluation and treatment Laboratory workup shows no signs of cardiac ischemia. No electrolyte disturbance or other clear cause for the flutter. TSH is slightly elevated suggesting possible hypothyroidism. Free T4 is normal. I do not think his thyroid triggered his atrial flutter. Does not require treatment at this time. Discussed with cardiology from [facility], Dr. Son. He would recommend that we do procedural sedation and electrical cardioversion here in the ER this morning because the patient is symptomatic. If successful he can discharge home with outpatient cardiology follow-up. No adjustment in his other medications such as flecainide. Continue on Xarelto. If the cardioversion is unsuccessful, since she is otherwise stable, Cardiology would have the patient call for an expeditious cardiac follow-up appointment on Tuesday. Cardioversion was completed here in the ER and was successful in restoring sinus rhythm. Follow-up EKG shows sinus rhythm with a rate of 60. Discussed post sedation precautions with the patient. He will need to get her ride home or avoid driving for 6 hours. He will continue on his other regular medications. He will follow up with his securities sales associate's within 1-2 weeks. Patient will call on Tuesday to arrange his follow-up appointment. Procedure: Electrical Cardioversion Indication: atrial flutter Discussed the risks and benefits of the procedure with the patient. Written consent for cardioversion as well as for procedural sedation was obtained. Anesthesiology was present in the patient's room and perform the sedation. Cardioversion performed by Dr. Eddy Cardioversion using a single shock, biphasic, 200 joules. Pads placed anterior- posterior. Cardioversion successfully eliminated the atrial flutter and patient resumed sinus rhythm. Lab Data Labs: Lab Results 05/05/24 05/05/24 05/05/24 Range/Units 05:05 05:28 06:00 WBC 6.20 (4.50-11.00) K/uL RBC 4.16 L (4.30-5.90) m/uL Hgb 12.9 L (13.5-17.5) gm/dL Hct 37.9 (37.0-53.0) % MCV 91 (80-100) fL MCH 31 (26-34) pg MCHC 34 (32-36) gm/dL RDW Coeff of [place] 12.3 (11.5-15.5) % Plt Count 191 (140-440) K/uL Neut % (Auto) 58.7 (42.0-72.0) % Lymph % (Auto) 25.0 (20-44) % [place] % (Auto) 10.3 (0.0-11.0) % Eos % (Auto) 4.7 (0.0-7.0) % Baso % (Auto) 1.0 (0.0-3.0) % Neut # (Auto) 3.64 (1.7-7.0) K/uL Lymph # (Auto) 1.55 (0.90-2.90) K/uL Bowman # (Auto) 0.60 (0.00-0.90) K/UL Eos # (Auto) 0.29 (0.00-0.50) K/uL Baso # (Auto) 0.06 (0.00-0.30) K/uL Abs Immat Gran (auto) 0.02 (0.00-0.30) K/uL Imm/Tot Granulo (auto) 0.3 % APTT 40 H (23-33) Seconds Sodium 137 (135-149) mmol/L Potassium 4.0 (3.6-5.1) mmol/L Chloride 104 (96-114) mmol/L Carbon Dioxide 25 (20-32) mmol/L Anion Gap 8 (7-15) mEq/L BUN 20 (7-30) mg/dL Creatinine 1.3 (0.5-1.5) mg/dL Estimated Creat Clear 48.35 Estimated GFR 56 ml/min Glucose 108 (60-115) mg/dL Calcium 9.6 (8.4-10.6) mg/dL Total Bilirubin 0.5 (0.1-1.5) mg/dL Direct Bilirubin 0.2 (0.0-0.5) mg/dL AST 33 (12-35) U/L ALT 22 (4-50) U/L Alkaline Phosphatase 93 (40-150) U/L Troponin I 0.01 (0.01-0.04) ng/mL Total Protein 6.8 (6.0-8.3) g/dL Albumin 4.4 (3.3-5.0) g/dL TSH 5.630 H (0.270-4.200) uIU/mL Free T4 0.93 (0.70-1.85) ng/dL Urine Color Yellow (Yellow) Urine Appearance Clear (Clear) Urine pH 7.0 (5.0-8.5) Ur Specific [place] 1.015 (1.000-1.030) Urine Protein Negative (Negative) Urine Glucose (UA) Negative (Negative) Urine Ketones Negative (Negative) Urine Blood Negative (Negative) Urine Nitrite Negative (Negative) Urine Bilirubin Negative (Negative) Urine Urobilinogen 0.2 (0.2-1.0) Ur Leukocyte Esterase Negative (Negative) Urine RBC 0-2 (0-2) Urine WBC 0-2 (0-5) Ur Squamous Epith Cells None (None-Few) Urine Bacteria None (None) POC Troponin I 0.01 (0.01-0.04) ng/ml ECG Data Attestation: I personally reviewed and interpreted this ECG as follows: Interpretation: Atrial flutter with variable AV conduction. Mostly is 2:1 conduction, occasionally 4:1 conduction. Rate: 95 AL: na QRS axis: Left anterior fascicular block. Left axis deviation. ST segment/T wave: No ST segment elevation or depression QTc: 454 EKG 2.-after cardioversion-7:03 a.m. Normal sinus rhythm Rate: 61 AL: 188 QRS axis: Left axis deviation ST segment/T wave: No ST segment elevation or depression. QTc: 442 Discharge Plan Discharge Prescriptions: No Action (DME) cpap 0 .Route .MEDSUPPLY multivitamin [Multiple Vitamins] Tablet 1 tab PO DAILY saw palmetto 450 mg capsule 450 mg PO DAILY Rx Instructions: give with food (meal/snack) turmeric 400 mg capsule 400 mg PO QDAY omega-3 fatty acids 500 mg capsule 500 mg PO DAILY vitamin A-vitamin C-vit E-min Tablet 1 tab PO DAILY cholecalciferol (vitamin D3) [Vitamin D3] 50 mcg (2,000 unit) capsule 2,000 unit PO DAILY doxazosin 8 mg tablet 8 mg PO HS hydrochlorothiazide 25 mg tablet 25 mg PO DAILY rosuvastatin [Crestor] 20 mg tablet 20 mg PO HS diltiazem HCl 120 mg capsule,extended release 24hr 120 mg PO DAILY flecainide 50 mg tablet 50 mg PO Q12H amoxicillin 500 mg capsule 2,000 mg PO ONCE Patient Comments: TAKE 4 CAPSULES BY MOUTH 1 HOUR BEFORE PROCEDURE Xarelto 20 mg tablet 20 mg PO QPM tamsulosin 0.4 mg capsule 0.4 mg PO DAILY loteprednol etabonate 0.5 % drops,suspension ophthalmic (eye) glucosamine-chondroitin [Cosamin DS] 500-400 mg tablet 1 tab PO DAILY tizanidine 2 mg capsule 2 mg PO TID PRN (Reason: muscle spasticity) Qty: 30 0RF Rx Instructions: Take 2 mg every 6-8 hours. Can increase does up to 4-6 mg every 6-8 hours if initial dose is not helping. Do not take more than 3 times in a 24 hour period or more than 36 mg in a day Follow Up/Referrals: Allen Gonzalez MD [Primary Care Provider] -
[2024-05-05 05:16] LABS: Troponin, Point-of-Care* 0.01 ng/ml (0.01-0.04)
[2024-05-05 05:18] LABS: Basophils Absolute Auto 0.06 K/uL (0.00-0.30); Eosinophils Absolute Auto 0.29 K/uL (0.00-0.50); Eosinophils Percent Auto 4.7 % (0.0-7.0); Hematocrit 37.9 % (37.0-53.0); Hemoglobin* 12.9 gm/dL (13.5-17.5); Immature Granulocytes Abs Auto 0.02 K/uL (0.00-0.30); Immature Granulocytes Pct Auto 0.3 %; Lymphocytes Absolute Auto 1.55 K/uL (0.90-2.90); Mean Corpuscular HGB Conc 34 gm/dL (32-36); Mean Corpuscular Hemoglobin 31 pg (26-34); Mean Corpuscular Volume 91 fL (80-100); Monocytes Percent Auto 10.3 % (0.0-11.0); Neutrophils Absolute Auto 3.64 K/uL (1.7-7.0); Neutrophils Percent Auto 58.7 % (42.0-72.0); Platelet Count* 191 K/uL (140-440); RDW Coefficient of Variation % 12.3 % (11.5-15.5); Red Blood Count 4.16 m/uL (4.30-5.90)
[2024-05-05 05:32] LABS: Albumin* 4.4 g/dL (3.3-5.0)
[2024-05-05 05:33] LABS: Chloride* 104 mmol/L (96-114); Sodium* 137 mmol/L (135-149)
[2024-05-05 05:35] LABS: Anion Gap 8 mEq/L (7-15); Aspartate Amino Transferase* 33 U/L (12-35); Bilirubin Direct* 0.2 mg/dL (0.0-0.5); Bilirubin Total* 0.5 mg/dL (0.1-1.5); Blood Urea Nitrogen* 20 mg/dL (7-30); Carbon Dioxide* 25 mmol/L (20-32); Creatinine* 1.3 mg/dL (0.5-1.5); Est. Creatinine Clearance* 48.35; Estimated Glomerular Filt Rate 56 ml/min; Partial Thromboplastin Time* 40 Seconds (23-33); Total Protein* 6.8 g/dL (6.0-8.3)
[2024-05-05 05:36] LABS: Alanine Aminotransferase* 22 U/L (4-50); Alkaline Phosphatase* 93 U/L (40-150); Calcium* 9.6 mg/dL (8.4-10.6); Glucose* 108 mg/dL (60-115); Slide Review Reflex No
--- OUTSIDE RECORDS SUMMARY | 2024-05-05 05:41 | XMS_ITS | Clinical Summary ---
Author Organization [facility] Address [place], [place] [address] Care Team Providers Care Conflicts Analyst Name Role Phone Allen Gonzalez MD Primary Care Provider Allen Winslow MD Unavailable [phone] Allergies Active Allergy Reactions Criticality Noted Date Comments Lisinopril Cough Low 06/25/2008 Losartan Other - Describe In Comment Field 05/11/2012 Exercise intolerance. Dabigatran Etexilate Other - Describe In Comment Field 07/07/2022 [place] poorly. Ok on Xarelto. Medications Medication Sig [...] mouth once daily. 0 12/02/2009 Active Saw [place] 1,000 mg capsule Take by mouth once [...] before procedure. 12 Tablet 1 07/07/2022 Active tamsulosin (FLOMAX) 0.4 mg capsuleIndications :BPH without urinary obstruction Take 1 Capsule (0.4 mg) by mouth once daily after a meal. 90 Capsule 3 06/24/2023 Active doxazosin (CARDURA) 8 mg tabletIndications: Essential [...] ONCE DAILY. 90 Capsule 3 11/25/2023 Active Xarelto 20 mg tabletIndications: Atrial fibrillation and flutter (HC) TAKE 1 TABLET BY MOUTH EVERY DAY WITH EVENING MEAL 90 Tablet 3 12/23/2023 Active amoxicillin (AMOXIL) 500 mg capsuleIndications :Need for SBE (subacute bacterial endocarditis) prophylaxis TAKE 4 CAPSULES BY MOUTH ONE HOUR BEFORE PROCEDURE. 12 Capsule 1 01/04/2024 Active rosuvastatin (CRESTOR) 20 mg tabletIndications: Mixed hyperlipidemia,ERIC D (arteriosclerotic heart disease) Take 1 Tablet (20 mg) by mouth at bedtime. 90 Tablet 2 04/09/2024 Active rosuvastatin (CRESTOR) 20 mg tabletIndications: Mixed hyperlipidemia,ERIC D (arteriosclerotic heart disease) TAKE 1 TABLET BY MOUTH AT BEDTIME 90 Tablet 2 07/14/2023 4 Discontinued Active Problems Patient Care Coordination [...] edema 10/14/2020 TAVR using bioprosthesis 05/29/2019 05/29/2019 Overview (05/30/2019): [address] Campos CAD, [...] stenosis 07/13/20182021 Screen for colon cancer 05/19/201003/27 Overview (05/19/2010): Colonoscopy 04/2010 normal repeat in 10 years Hx of Paroxysmal atrial fibrillation 11/21/2009 04/11/2020 Overview (07/14/2010): -05/25/10 S/P a fib ablation (dr Dockery) Palpitations 05/19/2007 08/10/2021 Cardiac dysrhythmia, unspecified 08/10/2021 Overview (03/03/2012): palpatation Other chest pain 08/10/2021 BOWDEN (dyspnea on exertion) Encounters Date Type Department Care Team Description 04/07/2024 Refill [facility] [address] [place] [address] Allen Gonzalez MD Refill Request (Rosuvastatin) from Last 3 Months Immunizations Name Administration Dates Next Due COVID-19 vaccine (Pfizer-Bio NTech 30mcg/0.3mL) 12YO+ JACOBO-SUCROSE PF, MDV 09/30/2021 COVID-19 vaccine (Pfizer-Bio NTech 30mcg/0.3mL) PF, MDV 09/06/2020,08/16/2020 Influenza A [...] Problems Mother Anesthesia Problem No Family History Cancer-breast No Family History Cancer-colon No Family History Relation Name Status Comments Father Mother Social History Tobacco Use Types Packs/Day Years Used Date Smoking Tobacco: Former Cigarettes 1 4 0 06/27/1971 - 06/27/1975 Smokeless Tobacco: Never Tobacco Cessation:Counseling Given: No Alcohol Use Standard Drinks/Week Comments Yes 3 (1 standard drink = 0.6 oz pur e alcohol) A few beers a week PHQ-2 Answer Date Recorded PHQ-2 TOTAL SCORE 0 07/13/2021 Social Connections Answer Date Recorded Frequency of Communication with Friends and Fami ly Not on file 02/26/2024 Financial Resource Strain Answer Date R ecorded [...] Sign Reading Time Taken Comments Blood Pressure 138/64 01/03/2024 3:53 PM CDT Pulse 58 01/03/2024 3:32 PM CDT Temperature 36.4 ??C (97.6 ??F) 07/18/2023 8:49 AM CS T Respiratory Rate 18 06/16/2023 2:37 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 Oxygen Saturation 97% 01/03/2024 3:32 PM CDT Inhaled Oxygen Concentration - - Weight 102.2 kg (225 lb 3.2 oz) 01/03/2024 3:32 PM CDT Height 177.8 cm (5' 10) 09/28/2023 11: 14 AM CDT Body Mass Index 32.31 09/28/2023 11:14 AM CDT Plan of Treatment Health Maintenance Due Date Last Done Comments Medicare Wellness for age 65+ 2010 Depression screening for age 12+ 07/13/2022 07/13/2021, 06/25/2019, 06/22/2019, Additional history exists COVID-19 vaccine series ( season) 2024 03/28/2023, 04/06/2022, 09/30/2021, Additional history exists Influenza [...] for age 50+ Completed 06/07/2022, 03/18/2022, 06/27/2013 RSV vaccine for adults or Completed 03/28/2023 Procedures Procedure Name Priority Date/Time Associated Diagnosis Comments ANTI HCV Routine 07/08/2021 9:52 AM 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 [place] [address], [place] from Last 3 Months or Most Recently [...] 9:31 AM 09/15/2018 6:40 PM Care Teams Conflicts Analyst Relationship Specialty Start Date End Date Allen Gonzalez MD [address] [place] [address] PCP - General 10/05/05 Allen Winslow MD [address] [place] [address] Cardiology Cardiovascular Disease 12/02/09
[2024-05-05 06:02] LABS: Troponin I* 0.01 ng/mL (0.01-0.04)
[2024-05-05 06:07] LABS: Appearance Urine Clear (Clear); Bilirubin Urine Negative (Negative); Blood Urine Negative (Negative); Color Urine Yellow (Yellow); Glucose Urine Negative (Negative); Ketones Urine Negative (Negative); Leukocyte Esterase Urine Negative (Negative); Nitrite Urine Negative (Negative); Protein Urine Negative (Negative); Specific Gravity Urine 1.015 (1.000-1.030); Urobilinogen Urine 0.2 (0.2-1.0)
[2024-05-05 06:25] LABS: RBC Urine 0-2 (0-2); WBC Urine 0-2 (0-5)
[2024-05-05 07:02] LABS: Free T4 Free Thyroxine* 0.93 ng/dL (0.70-1.85)
--- NOTE | 2024-05-05 07:10 | P.ANES_ITS ---
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
--- NOTE | 2024-05-05 07:10 | W.ANESCHARGE ---
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
--- NOTE | 2024-05-05 07:16 | ED.NURSE ---
pt reports feeling much better.
== END 2024-05-05 07:50 | disposition home or self-care (01) ==
PROVIDERS: Emergency Provider Emergency Medicine; PCP Family Medicine
DX: I48.91 Unspecified atrial fibrillation (principal)
CPT/HCPCS: 92960; 00410; 36415; 80048; 80076; 81001; 84439; 84443; 84484; 85025; 85730; 93005; 94761; 99100; 99140; 99284; 99291; J2704

== ENCOUNTER 2024-08-13 14:01 | Emergency (ER) | payer MEDICARE, OTHER, SELFPAY ==
--- OUTSIDE RECORDS SUMMARY | 2024-08-13 14:03 | XMS_ITS | Clinical Summary ---
Author Organization [facility] Address [place], [place] [address] Care Team Providers Care Well Services Operator Name Role Phone Allen Gonzalez MD Primary Care Provider Allen Winslow MD Unavailable [phone] Allergies Active Allergy Reactions Criticality Noted Date Comments Lisinopril Cough Low 06/25/2008 Losartan Other - Describe In Comment Field 05/11/2012 Exercise intolerance. Dabigatran Etexilate Other - Describe In Comment Field 07/07/2022 [place] poorly. Ok on Xarelto. Medications MULTIVITAMIN ORAL Take 1 Tablet by mouth once daily. 0 Active Vitamin A-Vitamin C-Vitamin E tab Take 1 Tablet by mouth once daily. 0 0 Active Ubidecarenone-Ome ga 3-Vit E 25-150-200 mg-mg-unit cap Take 1 Capsule by mouth once daily. 0 0 Active glucosamine-chond roitin, 500-400 mg, (COSAMIN DS 500/400) 500-400 mg Cap Take 1 Capsule by mouth once daily. 0 0 Active cholecalciferol (VITAMIN D3) 2,000 unit capsule Take 1 capsule by mouth once daily. 0 0 Active [place] 1,000 mg capsule Take by mouth once daily. 0 2 Active turmeric 400 mg cap Take by mouth once daily. 0 9 Active medication order composer Take 2 tablets by mouth once daily. Apple cider vinegar tablets. 480 mg tablets. Active doxazosin (CARDURA) 8 mg tabletIndications :Essential hypertension Take 1 Tablet (8 mg) by mouth at bedtime. 90 Tablet 3 4 Active hydroCHLOROthiazi de (HCTZ) 25 mg tabletIndications :Essential hypertension Take 1 Tablet (25 mg) by mouth once daily. 90 Tablet 3 4 Active CPAPIndications:O SA (obstructive sleep apnea) CPAP machine for home use at pressure 5cm, nasal mask x1/3month with nasal pillows x 2/mo 1 Each 11 4 Active flecainide (TAMBOCOR) 50 mg tabletIndications :Atrial fibrillation and flutter (HC) TAKE 1 TABLET BY MOUTH EVERY 12 HOURS 180 Tablet 3 4 Active dilTIAZem CD (CARDIZEM CD) 120 mg extended release 24 hr capsuleIndication s:Atrial fibrillation and flutter (HC) TAKE 1 CAPSULE BY MOUTH ONCE DAILY. 90 Capsule 3 4 Active Xarelto 20 mg tabletIndications :Atrial fibrillation and flutter (HC) TAKE 1 TABLET BY MOUTH EVERY DAY WITH EVENING MEAL 90 Tablet 3 4 Active amoxicillin (AMOXIL) 500 mg capsuleIndication s:Need for SBE (subacute bacterial endocarditis) prophylaxis TAKE 4 CAPSULES BY MOUTH ONE HOUR BEFORE PROCEDURE. 12 Capsule 1 4 Active rosuvastatin (CRESTOR) 20 mg tabletIndications :Mixed hyperlipidemia, HD (arteriosclerotic heart disease) Take 1 Tablet (20 mg) by mouth at bedtime. 90 Tablet 2 4 Active hyaluronidase in lido 2%-bupiv. 0.75% - long eye block, clinic supply, Use as directed for procedure. Refrigerate. Exp: 07/20/24 DOS: 07/20/24 10 mL 07/16/2024 9:38 AM RETAIL MARKETING MANAGER 5 Active Active Problems Patient Care Coordination No te Formatting of this note migh t be different from the original. HF/Structural Research Eligibility Review Date: 09/13/18 Age: 73 Insurance: Medicare EF: 63% 07/21/18 Valve/Imaging: Moderate-severe Comments: STS 2% Structural: Low Risk CAP: Possible Low Risk Bicuspid: No, d/t valve not bicuspid Problem Noted Date Diagnosed Date H/O vitrectomy 07/05/2024 Atrial fibrillation and flutter 09/10/2021 Bilateral lower [...] Encounters Date Type Department Care Team Description 08/13/2024 Telephone [email or web address] [address] [place] [address] Jordy Dockery MD Concerns 07/05/2024 7:40 AM RETAIL MARKETING MANAGER Office Visit [facility] [address] [place] [address] Allen Gonzalez MD Preoperative Exam (DOS: 07/20/2024, left eye surgery, Dr. Marinelli, [facility]) 07/05/2024 Travel 07/01/2024 Travel 06/15/2024 Refill [facility] [address] [place] [address] Allen Gonzalez MD Refill Request (Tamsulosin) from Last 3 Months Immunizations Name Administration Dates Next Due COVID-19 vaccine ([employer]-Bio NTech 30mcg/0.3mL) 12YO+ JACOBO-SUCROSE PF, MDV 09/30/2021 COVID-19 vaccine (Pfizer-Bio NTech 30mcg/0.3mL) PF, MDV 09/06/2020,08/16/2020 Influenza A (H1N1), Inactivated 07/08/2009 Influenza Virus, Unspecified 05/13/2015 Influenza, High-dose Inactivated 025,03/14/2019,04/07/2018,06/03 Influenza, High-dose Quadriv alent Inactivated 04/18/2023,03/18/2022,04/01/2021 Influenza, [...] 0 07/13/2021 Social Connections Answer Date Recorded Do you often feel lonely or isolated from those around you? 0 07/01/2024 Financial Resource Strain Answer Date R ecorded Difficulty of Paying Living Expenses 3 07/01/2024 Difficulty of Paying Living Expenses Not on file 07/01/2024 Food Insecurity Answer Date Recorded Do you worry your food will run out before you are able to buy more? 1 07/01/2024 Transportation Needs Answer Date Record ed Does lack of transportation keep you from medica l appointments? 1 07/01/2024 Does lack of transportation keep you from work, meetings or getting things that you need? 1 07/01/2024 Housing Stability Answer Date Recorded What is your housing situation today? 1 07/01/2024 Utilities Answer Date Recorded Do you have trouble paying f or utilities (for example, heat, electricity, water, phone)? 1 07/01/2024 Sex and Gender Information Value Date Recorded Sex Assigned at Not on file Legal Sex Male 5:26 AM RETAIL MARKETING MANAGER Gender Identity Not on file Sexual Orientation Not on file Obstetrics History Last Filed Vital Signs Vital Sign Reading Time Taken Comments Blood Pressure 146/75 07/05/2024 7:46 AM RETAIL MARKETING MANAGER Pulse 73 07/05/2024 7:46 AM RETAIL MARKETING MANAGER Temperature 36.4 C (97.6 F) 07/18/2023 8:49 AM RETAIL MARKETING MANAGER Respiratory Rate 18 06/16/2023 2:37 PM RETAIL MARKETING MANAGER Oxygen Saturation 97% 07/05/2024 7:46 AM RETAIL MARKETING MANAGER Inhaled Oxygen Concentration - - Weight 104.1 kg (229 lb 9.6 oz) 07/05/2024 7:46 AM RETAIL MARKETING MANAGER Height 178.5 cm (5' 10.28) 07/05/2024 7:[address] Body Mass Index 32.69 07/05/2024 7:46 AM RETAIL MARKETING MANAGER Plan of Treatment Upcoming Encounters Date Type Department Care Team (Late st Contact Info) Description 09/12/2024 10:40 AM CDT Office Visit [facility] [address] [place] [address] Alida Sousa NP [address] [place] [address] Health Maintenance Due Date Last Done Comments Medicare Wellness for age 65+ 2010 Depression screening for age 12+ 07/13/2022 07/13/2021, 06/25/2019, 06/22/2019, Additional history exists COVID-19 vaccine series (2023- season) 2024 01/13/2024, 03/28/2023, 04/06/2022, Additional history exists BMI (ht and wt on same day) for age 18+ 07/05/2025 07/05/2024, 09/28/2023, 07/18/2023, Additional history exists Tetanus booster 08/28/2027 08/27/2017, 12/30/2009 Tdap Completed 08/27/2017, 12/30/2009 Pneumococcal series for age 50+ Completed 9, 06/02/2016 Hepatitis C screening for ag e 18-79 Completed 07/08/2021 Zoster (shingles) series for age 50+ Completed 06/07/2022, 03/18/2022, 06/27/2013 RSV vaccine for adults or Completed 03/28/2023 Influenza for age 65+ Completed 07/04/2024 , 04/18/2023, 03/18/2022, Additional history exists Procedures Procedure Name Priority Date/Time Associated Diagnosis Comments LIPID PANEL W REFLEX MEASURED LDL Routine 07/05/2024 8:06 AM RETAIL MARKETING MANAGER Mixed hyperlipidemia BASIC METABOLIC PANEL Routine 07/05/2024 8:06 AM RETAIL MARKETING MANAGER Stage 3a chronic kidney disease (HC) ANTI HCV Routine 07/08/2021 9:52 AM RETAIL MARKETING MANAGER Need for hepatitis C screening test from Last 3 Months or Most Recently Relevant to Health Maintenance Results * LIPID PANEL W REFLEX MEASURED LDL (07/05/2024 8:06 AM RETAIL MARKETING MANAGER) CHOLESTEROL, TOTAL 165 <200 mg/dL [facility] HDL CHOLESTEROL 73 > OR = 40 mg/dL [facility] TRIGLYCERIDES 91 <150 mg/dL [facility] LDL-CHOLESTEROL 75 mg/dL (calc) [facility] Comment: Reference range: <100 Desirable range <100 mg/dL for primary prevention; <70 mg/dL for patients with CHD or diabetic patients with > or = 2 CHD risk factors. LDL-C is now calculated using the Marjorie calculation, which is a validated novel method providing better accuracy than the Friedewald equation in the estimation of LDL-C. Gordo SS et al. SHERRY. 2013;310(19): 3144-5889 (http://education.appMobi/faq/TLH265) CHOL/HDLC RATIO 2.3 <5.0 (calc) [facility] NON HDL CHOLESTEROL 92 <130 mg/dL (calc) [facility] Comment: For patients with diabetes plus 1 major ASCVD risk factor, treating to a non-HDL-C goal of <100 mg/dL (LDL-C of <70 mg/dL) is considered a therapeutic option. Blood BLOOD SPECIMEN / Unknown 07/05/2024 8:06 AM RETAIL MARKETING MANAGER 07/05/2024 8:07 AM RETAIL MARKETING MANAGER us Allen Gonzalez MD CHEMISTRY Final Result [facility] [address] [place] [address], [facility] [address] [place] [address] * (ABNORMAL) BASIC METABOLIC PANEL (07/05/2024 8:06 AM RETAIL MARKETING MANAGER) GLUCOSE 105(H) 65 - 99 mg/dL [facility] Comment: Fasting reference interval For someone without known diabetes, a glucose value between 100 and 125 mg/dL is consistent with prediabetes and should be confirmed with a follow-up test. UREA NITROGEN (BUN) 27(H) 7 - 25 mg/dL [facility] CREATININE 1.51(H) 0.70 - 1.28 mg/dL [facility] EGFR 47(L) > OR = 60 mL/min/1.7 3m2 [facility] BUN/CREATININE RATIO 18 6 - 22 (calc) [facility] SODIUM 142 135 - 146 mmol/L [facility] POTASSIUM 4.0 3.5 - 5.3 mmol/L [facility] CHLORIDE 108 98 - 110 mmol/L [facility] CARBON DIOXIDE 26 20 - 32 mmol/L [facility] ELECTROLYTE BALANCE 8 7 - 17 mmol/L (calc) [facility] CALCIUM 9.2 8.6 - 10.3 mg/dL [facility] Blood BLOOD SPECIMEN / Unknown 07/05/2024 8:06 AM RETAIL MARKETING MANAGER 07/05/2024 8:07 AM RETAIL MARKETING MANAGER Allen Gonzalez MD CHEMISTRY Final Result [facility] [address] [place] [address], [facility] [address] [place] [address] * ANTI HCV (07/08/2021 9:52 AM RETAIL MARKETING MANAGER) Pathologist [facility] HEPATITIS C ANTIBODY Non-React asiya Non-React asiya 07/08/2021 6:37 PM RETAIL MARKETING MANAGER [facility] Comment:Antibodies to HCV no t detected; does not exclude the possibility of exposure to HCV. Blood BLOOD SPECIMEN / Unknown Venipuncture / Unknown 07/08/2021 9:52 AM RETAIL MARKETING MANAGER 07/08/2021 9:52 AM RETAIL MARKETING MANAGER us Allen Gonzalez MD SEND OUTS Final Result [facility] [address] [place] [address], [place] from Last 3 Months or Most Recently Relevant to Health Maintenance Insurance [employer] PB ONLY MEDICARE PART B HB ONLY MEDICA PRIME SOLUTION HB MEDICARE PART A HB ONLY Advance Directives * Full Code (Latest Code [...] 9:31 AM 09/15/2018 6:40 PM Care Teams Well Services Operator Relationship Specialty Start Date End Date Allen Gonzalez MD [address] [place] [address] PCP - General 10/05/05 Allen Winslow MD [address] [place] [address] Cardiology Cardiovascular Disease 12/02/09
[2024-08-13 14:15] VITALS: BP 204/94; PULSE 105; RESP 20; TEMP 36.6; O2SAT 98; BMI 31.3
--- NOTE | 2024-08-13 14:30 | ED_ITS ---
HPI - Arrhythmia/Palpitations General Chief Complaint: Arrhythmia/Palpitations Stated Complaint: Heart flutter Time Seen by Provider: 08/13/24 14:13 History of Present Illness HPI narrative: This 78-year-old male comes in stating that he is not feeling well and reports suspicion of recurrent atrial flutter. He states that he thinks that this began last evening. He does not report any pain, lightheadedness, shortness of breath, or diaphoresis. He does not have any new exercise intolerance except when he is in this kind of rhythm and rate he does feel restricted. He arrives here in atrial fibrillation with rapid ventricular response. As I stepped into the room to interview him he converted back to normal sinus rhythm. He states that he is taking Xarelto. He forgot to take his flecainide and diltiazem this morning. Related Data Home Medications ?Medication ?Instructions ?Recorded ?Confirmed cholecalciferol (vitamin D3) 50 2,000 unit PO DAILY 01/05/22 07/31/24 mcg (2,000 unit) capsule (Vitamin D3) cpap 01/05/22 07/31/24 doxazosin 8 mg tablet 8 mg PO HS 01/05/22 07/31/24 hydrochlorothiazide 25 mg tablet 25 mg PO DAILY 01/05/22 07/31/24 multivitamin (Multiple Vitamins 1 tab PO DAILY 01/05/22 07/31/24 tablet) omega-3 fatty acids 500 mg capsule 500 mg PO DAILY 01/05/22 07/31/24 rosuvastatin 20 mg tablet (Crestor) 20 mg PO HS 01/05/22 07/31/24 saw palmetto 450 mg capsule 450 mg PO DAILY 01/05/22 07/31/24 turmeric 400 mg capsule 400 mg PO QDAY 01/05/22 07/31/24 vitamin A-vitamin C-vit E-min 1 tab PO DAILY 01/05/22 07/31/24 tablet amoxicillin 500 mg capsule 2,000 mg PO ONCE 01/06/22 07/31/24 diltiazem HCl 120 mg 120 mg PO DAILY 01/06/22 07/31/24 capsule,extended release 24 hr flecainide 50 mg tablet 50 mg PO Q12H 01/06/22 07/31/24 glucosamine-chondroitin 500 mg-400 1 tab PO DAILY 04/12/22 07/31/24 mg tablet (Cosamin DS) rivaroxaban 20 mg tablet (Xarelto) 20 mg PO QPM 07/13/22 07/31/24 tamsulosin 0.4 mg capsule 0.4 mg PO DAILY 10/25/23 07/31/24 loteprednol etabonate 0.5 % eye drp ophthalmic (eye) 04/17/24 07/31/24 drops,suspension Previous Rx's ?Medication ?Instructions ?Recorded tizanidine 2 mg capsule 2 mg PO TID PRN muscle spasticity 12/17/23 #30 caps carvedilol 3.125 mg tablet (Coreg) 3.125 mg PO BID #60 tabs 08/13/24 Allergies Allergy/AdvReac Type Severity Reaction Status Date / Time dabigatran etexilate (From Allergy felt Verified 07/31/24 13:51 Pradaxa) poorly. ok on xarelto Review of Systems Status of ROS: Reports: 10 or more systems reviewed and unremarkable except as noted in History and below Narrative: Constitutional: No fevers, no weight gain or loss. Eyes: No discharge. No vision changes. HENT: No congestion, no sore throat, no ear pain. Cardiovascular: No chest pain, no palpitations. Respiratory: No shortness of breath, no wheezes, no cough. Gastrointestinal: No abdominal pain, no vomiting, no diarrhea. Genitourinary: No dysuria, no hematuria. Musculoskeletal: Normal range of motion. Skin: No rashes, no pruritis. Neurological: No dizziness, weakness, sensory change, speech change. Endo/Heme/Allergies: No bruising or bleeding. No polydipsia. Pysch: no suicidality, no anxiety, no insomnia. All other systems reviewed and are negative. [facility] Medical History (Updated 08/13/24 @ 17:25 by Jairo Schmidt MD) Biceps tendon tear ?S46.219A - Strain of muscle, fascia and tendon of other parts of biceps, unspecified arm, initial encounter (ICD-10) Strain of left biceps ?S46.212A - Strain of muscle, fascia and tendon of other parts of biceps, left arm, initial encounter (ICD-10) Chronic anticoagulation ?Z79.01 - FDC (current) use of anticoagulants (ICD-10) Heart failure due to valvular disease ?I50.9 - Heart failure, unspecified (ICD-10) ?I38 - Endocarditis, valve unspecified (ICD-10) Chronic kidney disease ?N18.9 - Chronic kidney disease, unspecified (ICD-10) Tear of medial meniscus of right knee ?S83.241A - Other tear of medial meniscus, current injury, right knee, initial encounter (ICD-10) Osteoarthritis of right knee ?M17.11 - Unilateral primary osteoarthritis, right knee (ICD-10) Tachycardia ?R00.0 - Tachycardia, unspecified (ICD-10) PAC (premature atrial contraction) ?I49.1 - Atrial premature depolarization (ICD-10) GERD (gastroesophageal reflux disease) ?K21.9 - Gastro-esophageal reflux disease without esophagitis (ICD-10) Sleep apnea ?G47.30 - Sleep apnea, unspecified (ICD-10) Hypertension ?I10 - Essential (primary) hypertension (ICD-10) Irregular heart beat ?I49.9 - Cardiac arrhythmia, unspecified (ICD-10) Hyperlipidemia ?E78.5 - Hyperlipidemia, unspecified (ICD-10) Cardiac arrhythmia ?I49.9 - Cardiac arrhythmia, unspecified (ICD-10) Tinnitus ?H93.19 - Tinnitus, unspecified ear (ICD-10) Surgical History (Updated 07/31/24 @ 14:05 by Maria Guadalupe Dowd) History of arthroplasty of right knee (05/09/23) ?Z96.651 - Presence of right artificial knee joint (ICD-10) Hx of left cataract extraction (11/17/22) ?Z98.42 - Cataract extraction status, left eye (ICD-10) History of right cataract surgery (11/03/22) ?Z98.41 - Cataract extraction status, right eye (ICD-10) Hx of atrioventricular megan ablation ?Z98.890 - Other specified postprocedural states (ICD-10) Hx of hemorrhoidectomy ?Z98.890 - Other specified postprocedural states (ICD-10) Hx of hernia repair ?Z98.890 - Other specified postprocedural states (ICD-10) ?Z87.19 - Personal history of other diseases of the digestive system (ICD-10) H/O arthroscopy of shoulder (04/14/22) ?Z98.890 - Other specified postprocedural states (ICD-10) H/O heart artery stent (09/13/08) ?Z95.5 - Presence of coronary angioplasty implant and graft (ICD-10) Family History Father Throat cancer Mother Heart problem Social History Narrative: , retired, former smoker (quit 1975) He lives with his [facility]. He lives in a two-story house with the bedroom and bathroom upstairs. Main living area, kitchen and bathroom downstairs. What is your current living situation?: I presently have a place to live In the past 12 months, utilities in danger of being shut off: no In past 12 months, lack of transportation kept you from medical appts, meetings, work, or getting things needed for daily living: no In the past 12 mos, have been you worried that your food would run out before you had money to buy more?: never true In the past 12 mos, the food you bought just didn't last and you didn't have money to buy more?: never true Smoking Status: Never smoker Do you use any of these nicotine containing products: None Second hand tobacco smoke exposure: No How often do you have a drink containing alcohol: monthly or less Alcohol type: beer How many standard drinks containing alcohol do you have on a typical day: 1 or 2 How often do you have six or more drinks on one occasion: Less than monthly AUDIT-C Alcohol total score: 2 Non-prescribed substance use: denies use Caffeine: Yes Are you now , , , , never or living with a partner: Social isolation score (0-1 are the most socially isolated patients): 1 How often does anyone, including family, friends and others, physically hurt you : never How often does anyone, including family, friends and others, insult or talk down to you: never How often does anyone, including family, friends and others, threaten you with harm: never How often does anyone, including family, friends and others, scream or curse at you: never service: No Exam Narrative: Exam Narrative: Constitutional: Well-developed, well-nourished, no acute distress. HEENT: Normocephalic, atraumatic. Neck: Normal range of motion. Nontender. Supple. Heart: Regular. No murmurs. Normal rate. Intact distal pulses. Lungs: Clear to auscultation. No chest discomfort. No wheezes, rhonchi, or rales. Abdomen: Normal bowel sounds. Nontender. No rebound tenderness. Genitalia: Deferred. Back: No midline tenderness. Normal range of motion. Extremities: Normal range of motion. No injury. Skin: Intact. No rash. Warm. No erythema or pallor. Neurologic: No altered sensation. No weakness. Alert and oriented. Psychiatric: No suicidality. No anxiety or depression. No insomnia. Nursing notes and vitals signs are reviewed. Const: Vital Signs, click to edit/add: Vital Signs - 24 hr 08/13/24 14:15 Temperature 97.8 F Pulse Rate [Pulse Oximeter] 105 H Respiratory Rate 20 Blood Pressure [Le ft Upper Arm] 204/94 H Pulse Oximetry 98 Oxygen Delivery Me thod Room Air Course Vital Signs Vital signs: Initial Vital Signs Temperature 97.8 F 08/13/24 14:15 Temperature Source Temporal Artery Scan 08/13/24 14:15 Pulse Rate 105 H 08/13/24 14:15 Pulse Rhythm Irregular 08/13/24 14:15 Respiratory Rate 20 08/13/24 14:15 Blood Pressure 204/94 H 08/13/24 14:15 Blood Pressure Mean 130 H 08/13/24 14:15 Blood Pressure Position Supine 08/13/24 14:15 Pulse Oximetry 98 08/13/24 14:15 Oxygen Delivery Method Room Air 08/13/24 14:15 Vital Signs Temperature 97.8 F 08/13/24 14:15 Pulse Rate 105 H 08/13/24 14:15 Respiratory Rate 20 08/13/24 14:15 Blood Pressure 204/94 H 08/13/24 14:15 Pulse Oximetry 98 08/13/24 14:15 Oxygen Delivery Method Room Air 08/13/24 14:15 Temperature 97.8 F 08/13/24 14:15 Pulse Rate 105 H 08/13/24 14:15 Respiratory Rate 20 08/13/24 14:15 Blood Pressure 204/94 H 08/13/24 14:15 Pulse Oximetry 98 08/13/24 14:15 Oxygen Delivery Method Room Air 08/13/24 14:15 Medications Administered Medications: Generic Name Dose Route Start Last Admin Trade Name Corina PRN Reason Stop Dose Admin Diltiazem HCl 120 mg 08/14/24 09:00 08/13/24 15:31 Diltiazem 120 Mg Cap.Er.24h PO 120 mg DAILY SABRINA Administration Discontinued Medications Generic Name Dose Route Start Last Admin Trade Name Corina PRN Reason Stop Dose Admin Flecainide Acetate 50 mg 08/13/24 14:29 08/13/24 15:30 Flecainide Acetate 50 Mg Tablet PO 08/13/24 14:30 50 mg ONCE ONE Administration Sodium Chloride 500 mls @ 500 mls/hr 08/13/24 14:27 08/13/24 16:20 0.9 % Sodium Chloride 500 Ml IV 08/13/24 15:26 Infused .Q1H ONE Infusion MDM - Arrhythmia/Palpitations MDM Narrative Medical decision making narrative: this patient comes in stating that he feels like he is in atrial fibrillation and reports feeling symptoms when he exerts himself. He does not report chest pain or lightheadedness. EKG is obtained and initially showed atrial fibrillation with a rate of about 110 beats per minute. Soon after his arrival in the EKG was obtained IA in presented to his room and he converted to normal sinus rhythm. He states that he still does not feel right. An IV was established where he received IV fluids and labs are acquired. These returned with normal results including normal troponin and magnesium. The patient did get up and ambulate around the department and returned with some tachycardia which appeared irregular on the monitor but EKG soon thereafter showed sinus rhythm with frequent PACs. Some of these occurred back to back to back. After resting a bit his heart rate and rhythm normalized. I did speak with the stamping mill tender on-call and junior php developer at [facility]. The recommendation is to resume his current meds and add a beta-christie. I did provide a prescription for carvedilol 3.125 mg and the patient did receive a tablet here. Throughout his stay here his heart rate it continues to decrease in he states that he is feeling better. Perhaps this is related to his flecainide and diltiazem that he received here. There is also recommended that he is on a Zio patch. I placed an order for this to occur. A paintless dent repair technician from [facility] will connect with him tomorrow. Lab Data Labs: Lab Results 08/13/24 08/13/24 Range/Units 14:40 14:40 WBC 5.55 (4.50-11.00) K/uL RBC 3.95 L (4.30-5.90) m/uL Hgb 12.1 L (13.5-17.5) gm/dL Hct 35.6 L (37.0-53.0) % MCV 90 (80-100) fL MCH 31 (26-34) pg MCHC 34 (32-36) gm/dL RDW Coeff of [place] 11.8 (11.5-15.5) % Plt Count 156 (140-440) K/uL Neut % (Auto) 71.3 (42.0-72.0) % Lymph % (Auto) 18.7 L (20-44) % [place] % (Auto) 6.3 (0.0-11.0) % Eos % (Auto) 2.3 (0.0-7.0) % Baso % (Auto) 0.7 (0.0-3.0) % Neut # (Auto) 3.95 (1.7-7.0) K/uL Lymph # (Auto) 1.00 (0.90-2.90) K/uL [place] # (Auto) 0.30 (0.00-0.90) K/UL Eos # (Auto) 0.13 (0.00-0.50) K/uL Baso # (Auto) 0.04 (0.00-0.30) K/uL Abs Immat Gran (auto) 0.04 (0.00-0.30) K/uL Imm/Tot Granulo (auto) 0.7 % Sodium 140 (135-149) mmol/L Potassium 3.8 (3.6-5.1) mmol/L Chloride 105 (96-114) mmol/L Carbon Dioxide 28 (20-32) mmol/L Anion Gap 7 (7-15) mEq/L BUN 27 (7-30) mg/dL Creatinine 1.6 H (0.5-1.5) mg/dL Estimated Creat Clear 39.29 Estimated GFR 44 ml/min Glucose 148 H (60-115) mg/dL Calcium 9.4 (8.4-10.6) mg/dL Magnesium 2.0 Cancelled (1.5-2.6) mg/dL ECG Data Attestation: I personally reviewed and interpreted this ECG as follows: Interpretation: Atrial fibrillation with rapid ventricular response. Rate is 106 beats per minute. There are no specific ST or T-wave abnormalities. Repeat EKG: Normal sinus rhythm. Rate is [] beats per minute. There are no ST or T-wave abnormalities. Discharge Plan Discharge Clinical Impression: Atrial dysrhythmia Patient Disposition: Home, Self-Care Condition: Stable Additional Instructions: follow-up with [facility]. Take carvedilol as directed. Return if worsening. Prescriptions: New carvedilol [Coreg] 3.125 mg tablet 3.125 mg PO BID Qty: 60 2RF Rx Instructions: must administer with a meal/food No Action (DME) cpap 0 .Route .MEDSUPPLY multivitamin [Multiple Vitamins] Tablet 1 tab PO DAILY saw palmetto 450 mg capsule 450 mg PO DAILY Rx Instructions: give with food (meal/snack) turmeric 400 mg capsule 400 mg PO QDAY omega-3 fatty acids 500 mg capsule 500 mg PO DAILY vitamin A-vitamin C-vit E-min Tablet 1 tab PO DAILY cholecalciferol (vitamin D3) [Vitamin D3] 50 mcg (2,000 unit) capsule 2,000 unit PO DAILY doxazosin 8 mg tablet 8 mg PO HS hydrochlorothiazide 25 mg tablet 25 mg PO DAILY rosuvastatin [Crestor] 20 mg tablet 20 mg PO HS diltiazem HCl 120 mg capsule,extended release 24hr 120 mg PO DAILY flecainide 50 mg tablet 50 mg PO Q12H amoxicillin 500 mg capsule 2,000 mg PO ONCE Patient Comments: TAKE 4 CAPSULES BY MOUTH 1 HOUR BEFORE PROCEDURE Xarelto 20 mg tablet 20 mg PO QPM tamsulosin 0.4 mg capsule 0.4 mg PO DAILY loteprednol etabonate 0.5 % drops,suspension ophthalmic (eye) glucosamine-chondroitin [Cosamin DS] 500-400 mg tablet 1 tab PO DAILY tizanidine 2 mg capsule 2 mg PO TID PRN (Reason: muscle spasticity) Qty: 30 0RF Rx Instructions: Take 2 mg every 6-8 hours. Can increase does up to 4-6 mg every 6-8 hours if initial dose is not helping. Do not take more than 3 times in a 24 hour period or more than 36 mg in a day Follow Up/Referrals: Allen Gonzalez MD [Primary Care Provider] - Stand Alone Forms: [employer] Info Instructions
--- OUTSIDE RECORDS SUMMARY | 2024-08-13 14:33 | XMS_ITS | Clinical Summary ---
Author Organization [facility] Address [place], [place] [address] Care Team Providers Care Quality Assurance Practice Manager Name Role Phone Allen Gonzalez MD Primary Care Provider Allen Winslow MD Unavailable [phone] Allergies Active Allergy Reactions Criticality Noted Date Comments Lisinopril Cough Low 06/25/2008 Losartan Other - Describe In Comment Field 05/11/2012 Exercise intolerance. Dabigatran Etexilate Other - Describe In Comment Field 07/07/2022 [place] poorly. Ok on Xarelto. Medications MULTIVITAMIN ORAL [...] mouth once daily. 0 0 Active Saw [place] 1,000 mg capsule Take by mouth once [...] DOS: 07/20/24 10 mL 07/16/2024 9:38 AM MAIL HANDLER 5 Active Active Problems Patient Care Coordination [...] Type Department Care Team Description 08/13/2024 Telephone [email or web address] [address] [place] [address] Jordy Dockery MD Concerns 07/05/2024 7:40 AM MAIL HANDLER Office Visit [facility] [address] [place] [address] Allen Gonzalez MD Preoperative Exam (DOS: 07/20/2024, left eye surgery, Dr. Marinelli, [facility]) 07/05/2024 Travel 07/01/2024 Travel 06/15/2024 Refill [facility] [address] [place] [address] Allen Gonzalez MD Refill Request (Tamsulosin) from Last 3 Months Immunizations Name Administration Dates Next Due COVID-19 vaccine ([employer] 30mcg/0.3mL) 12YO+ JACOBO-SUCROSE PF, MDV 09/30/2021 [...] on file Legal Sex Male 5:26 AM MAIL HANDLER Gender Identity Not on file Sexual Orientation Not on file Obstetrics History Last Filed Vital Signs Vital Sign Reading Time Taken Comments Blood Pressure 146/75 07/05/2024 7:46 AM MAIL HANDLER Pulse 73 07/05/2024 7:46 AM MAIL HANDLER Temperature 36.4 C (97.6 F) 07/18/2023 8:49 AM MAIL HANDLER Respiratory Rate 18 06/16/2023 2:37 PM MAIL HANDLER Oxygen Saturation 97% 07/05/2024 7:46 AM MAIL HANDLER Inhaled Oxygen Concentration - - Weight 104.1 kg (229 lb 9.6 oz) 07/05/2024 7:46 AM MAIL HANDLER Height 178.5 cm (5' 10.28) 07/05/2024 7:[address] Body Mass Index 32.69 07/05/2024 7:46 AM MAIL HANDLER Plan of Treatment Upcoming Encounters Date Type Department Care Team (Late st Contact Info) Description 09/12/2024 10:40 AM CDT [facility] [address] [place] [address] Alida Sousa NP [address] [place] [address] Health Maintenance Due Date Last Done Comments [...] REFLEX MEASURED LDL Routine 07/05/2024 8:06 AM MAIL HANDLER Mixed hyperlipidemia BASIC METABOLIC PANEL Routine 07/05/2024 8:06 AM MAIL HANDLER Stage 3a chronic kidney disease (HC) ANTI HCV Routine 07/08/2021 9:52 AM MAIL HANDLER Need for hepatitis C screening test from Last 3 Months or Most Recently Relevant to Health Maintenance Results * LIPID PANEL W REFLEX MEASURED LDL (07/05/2024 8:06 AM MAIL HANDLER) CHOLESTEROL, TOTAL 165 <200 mg/dL [facility] HDL CHOLESTEROL 73 > OR = 40 mg/dL [facility] TRIGLYCERIDES 91 <150 mg/dL [facility] LDL-CHOLESTEROL 75 mg/dL (calc) [facility] Comment: Reference range: <100 Desirable range <100 mg/dL for primary prevention; <70 mg/dL for patients with CHD or diabetic patients with > or = 2 CHD risk factors. LDL-C is now calculated using the Marjorie calculation, which is a validated novel method providing better accuracy than the Friedewald equation in the estimation of LDL-C. Gordo SS et al. SHERRY. 2013;310(19): 1908-9591 (http://education.[employer]/faq/DZV719) CHOL/HDLC RATIO 2.3 <5.0 (calc) [facility] NON HDL CHOLESTEROL 92 <130 mg/dL (calc) [facility] Comment: For patients with diabetes plus 1 major ASCVD risk factor, treating to a non-HDL-C goal of <100 mg/dL (LDL-C of <70 mg/dL) is considered a therapeutic option. Blood BLOOD SPECIMEN / Unknown 07/05/2024 8:06 AM MAIL HANDLER 07/05/2024 8:07 AM MAIL HANDLER us Allen Gonzalez MD CHEMISTRY Final Result [facility] [address] [place] [address], [facility] [address] [place] [address] * (ABNORMAL) BASIC METABOLIC PANEL (07/05/2024 8:06 AM MAIL HANDLER) GLUCOSE 105(H) 65 - 99 mg/dL [facility] Comment: Fasting reference interval For someone without known diabetes, a glucose value between 100 and 125 mg/dL is consistent with prediabetes and should be confirmed with a follow-up test. UREA NITROGEN (BUN) 27(H) 7 - 25 mg/dL [facility] CREATININE 1.51(H) 0.70 - 1.28 mg/dL [facility] EGFR 47(L) > OR = 60 mL/min/1.7 3m2 [facility] BUN/CREATININE RATIO 18 6 - 22 (calc) [facility] SODIUM 142 135 - 146 mmol/L [facility] POTASSIUM 4.0 3.5 - 5.3 mmol/L [facility] CHLORIDE 108 98 - 110 mmol/L [facility] CARBON DIOXIDE 26 20 - 32 mmol/L [facility] ELECTROLYTE BALANCE 8 7 - 17 mmol/L (calc) [facility] CALCIUM 9.2 8.6 - 10.3 mg/dL [facility] Blood BLOOD SPECIMEN / Unknown 07/05/2024 8:06 AM MAIL HANDLER 07/05/2024 8:07 AM MAIL HANDLER Allen Gonzalez MD CHEMISTRY Final Result [facility] [address] [place] [address], [facility] [address] [place] [address] * ANTI HCV (07/08/2021 9:52 AM MAIL HANDLER) Pathologist [facility] HEPATITIS C ANTIBODY Non-React asiya Non-React asiya 07/08/2021 6:37 PM MAIL HANDLER [facility] Comment:Antibodies to HCV no t detected; does not exclude the possibility of exposure to HCV. Blood BLOOD SPECIMEN / Unknown Venipuncture / Unknown 07/08/2021 9:52 AM MAIL HANDLER 07/08/2021 9:52 AM MAIL HANDLER us Allen Gonzalez MD SEND OUTS Final Result [facility] [address] [place] [address], [place] from Last 3 Months or Most Recently Relevant to Health Maintenance Insurance [email or web address] PB ONLY MEDICARE PART B HB ONLY [...] 9:31 AM 09/15/2018 6:40 PM Care Teams Quality Assurance Practice Manager Relationship Specialty Start Date End Date Allen Gonzalez MD [address] [place] [address] PCP - General 10/05/05 Allen Winslow MD [address] [place] [address] Cardiology Cardiovascular Disease 12/02/09
[2024-08-13 15:01] LABS: Basophils Absolute Auto 0.04 K/uL (0.00-0.30); Basophils Percent Auto 0.7 % (0.0-3.0); Eosinophils Absolute Auto 0.13 K/uL (0.00-0.50); Eosinophils Percent Auto 2.3 % (0.0-7.0); Hematocrit 35.6 % (37.0-53.0); Hemoglobin* 12.1 gm/dL (13.5-17.5); Immature Granulocytes Abs Auto 0.04 K/uL (0.00-0.30); Immature Granulocytes Pct Auto 0.7 %; Lymphocytes Percent Auto 18.7 % (20-44); Mean Corpuscular HGB Conc 34 gm/dL (32-36); Mean Corpuscular Hemoglobin 31 pg (26-34); Mean Corpuscular Volume 90 fL (80-100); Monocytes Percent Auto 6.3 % (0.0-11.0); Neutrophils Absolute Auto 3.95 K/uL (1.7-7.0); Neutrophils Percent Auto 71.3 % (42.0-72.0); Platelet Count* 156 K/uL (140-440); RDW Coefficient of Variation % 11.8 % (11.5-15.5); Red Blood Count 3.95 m/uL (4.30-5.90); White Blood Count* 5.55 K/uL (4.50-11.00)
[2024-08-13 15:20] LABS: Blood Urea Nitrogen* 27 mg/dL (7-30); Creatinine* 1.6 mg/dL (0.5-1.5); Est. Creatinine Clearance* 39.29; Estimated Glomerular Filt Rate 44 ml/min
[2024-08-13 15:21] LABS: Calcium* 9.4 mg/dL (8.4-10.6); Carbon Dioxide* 28 mmol/L (20-32); Glucose* 148 mg/dL (60-115)
[2024-08-13 15:28] LABS: Slide Review Reflex No
[2024-08-13] MEDS: 0.9 % SODIUM CHLORIDE 500 ML 500 ML IV (15:29)
[2024-08-13] MEDS: FLECAINIDE ACETATE 50 MG TABLET PO (15:30)
[2024-08-13] MEDS: dilTIAZem 120 MG CAP.ER.24H PO (15:31)
[2024-08-13 15:36] LABS: Anion Gap 7 mEq/L (7-15)
[2024-08-13 15:54] LABS: Chloride* 105 mmol/L (96-114); Potassium* 3.8 mmol/L (3.6-5.1); Sodium* 140 mmol/L (135-149)
[2024-08-13 16:00] VITALS: BP 155/72; PULSE 66; RESP 18; TEMP 36.6; O2SAT 98
[2024-08-13 17:30] VITALS: BP 154/69; PULSE 67; RESP 18; O2SAT 978
[2024-08-13 18:00] VITALS: BP 148/75; PULSE 63; RESP 18; TEMP 36.9; O2SAT 98
[2024-08-13] MEDS: carvediloL 6.25 MG TABLET 3.125 MG PO (18:07)
== END 2024-08-13 18:57 | disposition home or self-care (01) ==
PROVIDERS: Emergency Provider Emergency Medicine Emergency Medical Services; PCP Family Medicine
DX: I49.9 Cardiac arrhythmia, unspecified (principal)
CPT/HCPCS: 36415; 80048; 83735; 84484; 85025; 87631; 93005; 93246; 99284; A9270; J7030

== ENCOUNTER 2024-10-12 07:05 | Outpatient (CLI) | payer MEDICARE, OTHER, SELFPAY ==
--- NOTE | 2024-10-12 07:15 | MR_ITS ---
[address] [address] Phone:?[phone] Fax:?[phone] Referring Physician Information: Daniel Lu M.D. [id number] [facility] [address] Phone:?[phone] Fax:?[phone] Patient:?Johanny Love D.O.B:?1945 Sex:?Male Phone:?[phone] [facility] MRN:?[id number] Exam Date:?10/12/2024 EXAM: MRI of the LEFT SHOULDER, without contrast CLINICAL: Male, 79 years old, with left shoulder pain since reported history of fall landing on his left arm, unspecified date. INDICATION: Evaluate for rotator cuff tear versus other shoulder internal derangement etiology. PRIOR SURGERY: None reported. PLAIN FILMS: 10/09/2024 and 07/31/2024 radiographic series of the left shoulder. COMPARISONS: No prior MRIs available. TECHNICAL: Using a 1.5T MR scanner and a localizing shoulder surface coil: 3.0 mm?coronal obliques: PD, T2, STIR 3.0 mm?sagittal obliques: PD, T2 3.0 mm?axials: PD, T2 SEDATION: None. CONTRAST: None. IMPRESSION: 1. Approximately 15 x 10 mm AP by ML dimension full-thickness full-width supraspinatus tendon tear located approximately 10 mm proximal to its attenuated but intact insertional footprint with relatively mild muscle belly atrophy at this time. 2. Deep surface tendinosis and attenuation extends into the adjacent infraspinatus tendon without full-thickness tear. 3. Moderate to marked inferior degenerative hypertrophy of acromiohumeral joint greater than mild narrowing of acromiohumeral distance both contribute an element of encroachment upon the subacromial space. 4. Findings which could also reflect an element of coracoid impingement: - Mild narrowing of coracohumeral distance. - Large subcoracoid bursal fluid collection. - Deep surface tendinosis and towards 50% attenuation of the subscapularis tendon without full-thickness tear. 5. Residua of proximal biceps tendon rupture and distal retraction. 6. Mild glenohumeral osteoarthritis. FINDINGS: Glenohumeral joint: Effusion/cyst: Very small glenohumeral joint effusion with some soft tissue in the axillary recess suspect for an element of synovitis. Ganglion cyst: None. Articular cartilage: Humeral head: Chondral thinning of the inferomedial humeral head, without subjacent marrow edema. Glenoid: Chondral thinning and perhaps very focal irregularity of articular cartilage of the glenoid, without defined full-thickness defect or subjacent marrow edema. Loose bodies: None demonstrable. Inferior glenohumeral ligament/axillary recess: Unremarkable. Labrum: Areas of irregularity and some attenuation of much of the glenoid labrum including focal linear tear of the superior labrum posterior to the biceps anchor. Bones: Proximal humerus: Minimal cortical or and hyperostosis of the greater tuberosity underlies lesser distal insertional rotator cuff tendinosis detailed below. Mild cortical irregularity of the lesser tuberosity underlies distal insertional subscapularis tendinosis detailed below. The proximal humerus is otherwise intact. No humeral Hill-Sachs or reverse Hill-Sachs lesion. Glenoid: Intact. No osseous Bankart lesion. Coracoacromial arch: Acromion morphology: Type I acromion without subacromial spur/enthesophyte. Os acromiale: None. Acromiohumeral space: Mildly narrowed at a minimum of 5 mm. Coracohumeral space: Mildly narrowed. 7 mm bony distance. 6 mm soft tissue distance. 23 mm coracoid overlap. Acromioclavicular joint: Joint: Marked chronic degenerative hypertrophy of the acromioclavicular joint towards marked encroachment upon the anterior subacromial space where it abuts and moderately encroaches upon the contour of the anterior margin of the supraspinatus myotendinous junction (coronal PD series 6, images 9-8; sagittal PD series 8, images 17-18). Ligaments: Intact coracoclavicular ligaments. Bursae: Subacromial-subdeltoid: Fluid in the subacromial space reflects accumulation associated with the full-thickness rotator cuff tear discussed below. Subcoracoid: Prominent fluid-like signal intensity in the subcoracoid bursa suspect for an element of prominent subcoracoid bursal fluid/bursitis as could potentially be associated with an element of coracoid impingement (axial T2 series 4, images 13-24). Rotator cuff and muscles/tendons: Supraspinatus: Moderate-sized full-thickness full-width tear of the supraspinatus tendon just proximal to its attenuated, but otherwise intact, insertional footprint measures up to approximately 15 mm in AP dimension an up to approximately 10 mm in ML dimension (coronal images 7-11; sagittal images 6- 11). Mild decreased supraspinatus muscle bulk and mild Goutallier stage 1-2 fatty infiltration without more prominent muscle atrophy at this time. Infraspinatus: Deep surface tendinosis and attenuation extends into the adjacent anterior towards mid infraspinatus tendon without full-thickness tear. No tendon or myotendinous junction retraction. No muscle atrophy. Teres minor: Unremarkable. Subscapularis: Mild tendinosis and likely mild shallow deep attenuation of the subscapularis tendon without larger or full-thickness tear. No tendon or myotendinous junction retraction. No muscle atrophy. Deltoid: Unremarkable. Biceps tendon, long head: The biceps tendon is not visualized at the level of the rotator cuff interval and bicipital groove, in keeping with residua of proximal rupture and distal retraction. . Axilla: Unremarkable. F Electronically signed on 10/12/2024 3:11:00 PM by Marcos Doe M.D.
== END 2024-10-12 07:06 | disposition home or self-care (01) ==
LOC: MRI 07:06
PROVIDERS: PCP Family Medicine; Visit Provider Orthopaedic Surgery Sports Medicine
DX: M25.512 Pain in left shoulder (principal); M75.102 Unspecified rotator cuff tear or rupture of left shoulder, not specified as traumatic; S46.012A Strain of muscle(s) and tendon(s) of the rotator cuff of left shoulder, initial encounter; S49.92XA Unspecified injury of left shoulder and upper arm, initial encounter; M19.012 Primary osteoarthritis, left shoulder
CPT/HCPCS: 73221

== ENCOUNTER 2024-10-22 06:41 | Day surgery (SDC) | payer MEDICARE, OTHER, SELFPAY ==
[2024-10-22] VITALS (16 sets, daily range): BP systolic 121–174; BP diastolic 52–68; PULSE 53–77; RESP 16–20; TEMP 35.9–36.6; O2SAT 92–98; BMI 32.8
--- NOTE | 2024-10-22 07:30 | W.PM.H&PU ---
History & Physical Update History & Physical Update H&P Reviewed and patient assessed: No changes noted
[2024-10-22] MEDS: SODIUM CHLORIDE 0.9 % (FLUSH) 10 ML SYRINGE IVF (07:50)
[2024-10-22] MEDS: LACTATED RINGERS 1000 ML 1,000 ML 100 ML IV ×2 (07:50→11:15)
[2024-10-22] MEDS: fentaNYL 100 MCG/2 ML inj IVP (09:33)
[2024-10-22] MEDS: MIDAZOLAM HCL 1 MG/ML inj IVP (09:33)
--- NOTE | 2024-10-22 09:39 | SUR.PREOP ---
TIME?OUT:?929, left shoulder PT/RN/MDA?VERIFICATION?OF?SURGICAL?SITE,?PROCEDURE,?AND?CONSENT OBTAINED?PRIOR?TO?INVASIVE?PROCEDURE.
[2024-10-22] MEDS: CEFAZOLIN 2 GM in 0.9 % SODIUM CHLORIDE Mini-bag 100 ML IVPB (10:20)
--- NOTE | 2024-10-22 11:29 | P.ANES_ITS ---
Anesthesia Charges Start Date/Time Anesthesia Start Date: 10/22/24 Anesthesia Start Time: 10:02 Stop Date/Time Anesthesia Stop Date: 10/22/24 Anesthesia Stop Time: 12:10 Summary Extremes of Age - Over 70 or under 1: MDA Coding CPT Codes CPT Codes: ANESTH SURGERY OF SHOULDER - 87338 ([id number]) P3 - PATIENT W/SEVERE SYS DISEASE, QK - AFTER SCHOOL PROGRAM COORDINATOR 2-4 CNCRNT ANES PROC, QX - CONTACT MANAGER SVC W/ MD MED DIRECTION Additional Codes: Summary - Extremes of Age - Over 70 or under 1: MDA ([id number])
--- NOTE | 2024-10-22 11:29 | W.ANESCHARGE ---
Anesthesia Charges Start Date/Time Anesthesia Start Date: 10/22/24 Anesthesia Start Time: 10:02 Stop Date/Time Anesthesia Stop Date: 10/22/24 Anesthesia Stop Time: 12:10 Summary Extremes of Age - Over 70 or under 1: MDA Coding CPT Codes CPT Codes: ANESTH SURGERY OF SHOULDER - 82963 ([id number]) P3 - PATIENT W/SEVERE SYS DISEASE, QK - CRYPTOZOOLOGIST 2-4 CNCRNT ANES PROC, QX - PIG FARMER SVC W/ MD MED DIRECTION Additional Codes: Summary - Extremes of Age - Over 70 or under 1: MDA ([id number])
--- NOTE | 2024-10-22 11:31 | P.NB_ITS ---
Nerve Block Nerve Block Time Seen by Provider: 09:30 Date Seen: 10/22/24 Type of block requested by surgeon for post-operative analgesia: supraclavicular Side: left Time out performed: Yes Verification of patient name: Yes Verification of date of : Yes Site marking: site marked Name of person performing procedure: Junior Continuous monitoring Was continuous monitoring of O2 sat, B/P, monitoring specialist, recorded every 15 minutes?: Yes Procedure Checklist: sterile prep, needles and gloves Ultrasound guided. Images saved: Yes Medications given in 5ml increments after negative aspiration: Marcaine %: 0.25 mL: 5 Needle gauge: 22 and Exparel mL: 10 Patient tolerated procedure well: Yes Block Charges Block Charge (with Pro Fee): Brachial Plexus Use of Ultrasound Machine for Block: Yes- US Guidance/pain block
--- NOTE | 2024-10-22 11:58 | P.ORPRC_ITS ---
Procedure Note Date of procedure: 10/22/24 Procedure: PREOPERATIVE DIAGNOSES: 1. Left shoulder rotator cuff tear - full-thickness supraspinatus, traumatic, acute 2. Left shoulder long head biceps tear, traumatic, acute 3. Left shoulder AC degenerative joint disease 4. Left shoulder subacromial impingement syndrome 5. Left shoulder anterior and superior labral tearing POSTOPERATIVE DIAGNOSES: 1. Left shoulder rotator cuff tear - full-thickness supraspinatus, traumatic, acute 2. Left shoulder long head biceps tear, traumatic, acute 3. Left shoulder anterior and superior labral tearing 4. Left shoulder loose body 5. 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 Left shoulder arthroscopic rotator cuff repair - he full-thickness supraspinatus rotator cuff tear 2. Left shoulder arthroscopic extensive glenohumeral debridement SURGEON: Daniel Lu MD KING MAKER: Roberto Barba PA-C. Of note, a skilled behavioral health assistant was critical for this case to aide in patient positioning, suture manipulation, arm positioning, instrument positioning, and closure. ANESTHESIA: General plus preoperative supraclavicular block. EBL: 25 mL IMPLANTS: Arthrex 5.5 mm BioComposite corkscrew suture anchor (x2) Arthrex 5.5 mm BioComposite SwiveLock suture anchor (x2); COMPLICATIONS: None evident INDICATIONS: The patient is a pleasant, 79-year-old male who has experienced left shoulder pain after recent fall resulting in dramatic injury to the left shoulder. Physical exam and imaging were consistent with a rotator cuff tear. Given their findings, as well as the weakness and pain, and inadequate response to nonoperative management, recommendation was made for surgery. FINDINGS: Exam under anesthesia revealed stable shoulder with excellent range of motion. The diagnostic arthroscopy revealed pre 2-3 chondromalacia anterior humeral head with some small loose chondral flap tissue. The Subscapularis tendon was intact with a healthy attachment. The long head of the biceps tendon was torn and fallen into the glenohumeral joint. In addition, urgency the anterior/superior labrum is also torn and displaced into the glenohumeral. The superior rotator cuff tendon was found from the mid tendon portion. A majority of the tendon still remained on the greater tuberosity. Clearly this was a traumatic tear given the mild delamination of the anterior tissue and traumatic fibrillations/mop-end appearance the tendinous portion otherwise.] A thin 6 x 10 mm loose body was also identified in the glenohumeral joint. PROCEDURE: Following a thorough discussion of risks, benefits, and alternatives, consent was obtained and the left shoulder was marked. The patient was brought to the operating room and placed supine on the operating table. Induction of anesthesia was completed after preoperative supraclavicular block was administered in preop holding. Appropriate time out was performed identifying proper patient, site, and procedure. 2 g IV Ancef was administered within 1 hour of incision preoperatively. The left upper extremity was prepped and draped in the appropriate sterile fashion using ChloraPrep prep. This was after the patient was positioned in the beach chair with their head in neutral alignment and all bony prominences well padded. The shoulder was insufflated with 20mL of normal saline via an 18g spinal needle from a posterior approach. An 11 blade skin incision allowed a blunt trochar to be inserted and diagnostic arthroscopy to be performed with the findings as noted above. An anterior portal was established with an outside in technique. This allowed the probe to be inserted and confirm the diagnostic arthroscopic findings. The shaver was then inserted and allowed debridement of the loose body, the displaced from biceps tendon tissue and biceps stump, the loose chondral tissue from the anterior humeral head, and the anterior labral tissue which was displaced in the glenohumeral joint. Following this, the upper border subscapul daniel was probed and found to be stable. Thereafter, the subacromial space was entered. Here, a complete bursectomy was performed. Initially, we were planning for subacromial decompression distal cla vicle excision, but given his tear pattern, there was concern that there may be a higher risk for retear with subsequent risk for anterior superior escape. Thus, the CA ligament was left intact. Further inspection of the supraspinatus and infraspinatus rotator cuff was performed. This identified the tear as noted above. The margins of the tear were debrided, and the medial aspect of greater tuberosity was debrided with a combination of the apollo cautery, shaver, and bur on reverse setting. After gentle decortication, rotator cuff repair was performed with 5.5 mm BioComposite corkscrew suture anchors. These were double loaded. 2 medial row anchors placed. All 4 tails from each anchor were passed and tied with some traction on the tissue. This did allow not just spot welding of the rotator cuff back to the far medial aspect greater tuberosity but some coverage (5-8 mm) of tissue back to the greater tuberosity. We also utilized a [id number]-mo-gpin marginal convergence suture tape suture both to help conversant tissue but also act like a rip stop for the medial row anchors. To the tails were cut from the far anterior and far posterior anchor and the remaining tails from the more medial anchors including the rip stop SutureTape tails were all passed into 2 separate lateral row anchors with excellent reapproximation of the rotator cuff to the greater tuberosity and laying down against the greater tuberosity tissue. The remaining greater tuberosity rotator cuff tissue was mildly debrided but left intact to act like a tuberoplasty/bumper against any acromial tissue. The rotator cuff showed excellent reapproximation of the greater tuberosity with good security upon probing. Prior to anchor pole truck driver removal, the eyelet sutures were tugged on for each anchor and found that the anchor had excellent stability within the bone. The shoulder was placed through range of motion and found to be stable. The rotator cuff was re-probed and found to be stable. Instruments were removed. Excess fluid was drained, closure performed with 4-0 Monocryl and Steri-Strips. Dressings were applied. Sling was applied. The patient was awoken from anesthesia and transferred to the PACU in stable condition. A skilled behavioral health assistant was critical for this case to aid in patient positioning, limb positioning, skill to manipulate arthroscopic instruments and camera, suture management, patient safety, and closure. PLAN: 1. Elbow, forearm, wrist and digit range of motion of operative extremity as tolerated. 2. Encouraged ice. 3. Oxycodone for pain as needed. 4. Sling at all times except for ROM and showering. 5. Follow up with PA visit in 1-2 weeks for wound check. Initiate physical therapy following that visit for passive range of motion. Abduction pillow x6 weeks. Also initiate active assisted range of motion at 6 weeks. May do pendulums now.
--- NOTE | 2024-10-22 12:30 | P.ANES_ITS ---
Anesthesia Charges Start Date/Time Anesthesia Start Date: 10/22/24 Anesthesia Start Time: 10:02 Stop Date/Time Anesthesia Stop Date: 10/22/24 Anesthesia Stop Time: 12:10 Coding CPT Codes CPT Codes: ANESTH SURGERY OF SHOULDER - 93723 ([id number]) P3 - PATIENT W/SEVERE SYS DISEASE, QK - FUEL VERIFICATION TECHNICIAN 2-4 CNCRNT ANES PROC, QX - SLURRY TANK OPERATOR SVC W/ MD MED DIRECTION
--- NOTE | 2024-10-22 12:30 | W.ANESCHARGE ---
Anesthesia Charges Start Date/Time Anesthesia Start Date: 10/22/24 Anesthesia Start Time: 10:02 Stop Date/Time Anesthesia Stop Date: 10/22/24 Anesthesia Stop Time: 12:10 Coding CPT Codes CPT Codes: ANESTH SURGERY OF SHOULDER - 41595 ([id number]) P3 - PATIENT W/SEVERE SYS DISEASE, QK - ULTRASONIC SOLDERER 2-4 CNCRNT ANES PROC, QX - BUTTON MAKER SVC W/ MD MED DIRECTION
== END 2024-10-22 14:12 | disposition home or self-care (01) ==
PROVIDERS: PCP Family Medicine; Visit Provider Orthopaedic Surgery Sports Medicine
PROC: (CPT 29805; principal; 2024-10-22 09:00)
DX: S46.012A Strain of muscle(s) and tendon(s) of the rotator cuff of left shoulder, initial encounter (principal); S46.112A Strain of muscle, fascia and tendon of long head of biceps, left arm, initial encounter; M19.012 Primary osteoarthritis, left shoulder; M75.42 Impingement syndrome of left shoulder; S43.432A Superior glenoid labrum lesion of left shoulder, initial encounter; G89.18 Other acute postprocedural pain; R94.31 Abnormal electrocardiogram [ECG] [EKG]; I25.10 Atherosclerotic heart disease of native coronary artery without angina pectoris; I48.0 Paroxysmal atrial fibrillation; Z79.01 Long term (current) use of anticoagulants; G47.33 Obstructive sleep apnea (adult) (pediatric); I12.9 Hypertensive chronic kidney disease with stage 1 through stage 4 chronic kidney disease, or unspecified chronic kidney disease; N18.9 Chronic kidney disease, unspecified
CPT/HCPCS: 29827; 29823; 01630; 64415; 76942; 93005; 99100; C1713; J0330; J0665; J0666; J0690; J1100; J2250; J2371; J2405; J2704; J3010; J7120; L3670

== ENCOUNTER 2024-11-08 07:45 | Emergency (ER) | payer MEDICARE, OTHER, SELFPAY ==
--- OUTSIDE RECORDS SUMMARY | 2024-11-08 07:48 | XMS_ITS | Clinical Summary ---
Author Organization [facility] Address [address] [place] [id number] Care Team Providers Care Agricultural Commodities Grader Name Role Phone Allen Gonzalez MD Primary Care Provider Allen Winslow MD Unavailable [phone] Allergies Active Allergy Reactions Criticality Noted Date Comments Atenolol Other - Describe In Comment Field 10/16/2024 Fatigue, shortness of breath. Carvedilol Other - Describe In Comment Field 10/16/2024 [place] terrible, fatigue. Lisinopril Cough Low 06/25/2008 Losartan Other - Describe In Comment Field 05/11/2012 Exercise intolerance. Dabigatran Etexilate Other - Describe In Comment Field 07/07/2022 [place] poorly. Ok on Xarelto. Medications cholecalciferol (VITAMIN D3) 2,000 unit capsule Take 1 capsule by mouth once daily. 0 12/03/19 10 Active CPAPIndications: NELLI (obstructive sleep apnea) CPAP machine for home use at pressure 5cm, nasal mask x1/3month with nasal pillows x 2/mo 1 Each 11 10/11/19 24 Active amoxicillin (AMOXIL) 500 mg capsuleIndicatio ns:Need for SBE (subacute bacterial endocarditis) prophylaxis TAKE 4 CAPSULES BY MOUTH ONE HOUR BEFORE PROCEDURE. 12 Capsule 1 01/04/20 24 Active rosuvastatin (CRESTOR) 20 mg tabletIndication s:Mixed hyperlipidemia,A SHD (arterioscleroti c heart disease) Take 1 Tablet (20 mg) by mouth at bedtime. 90 Tablet 2 04/09/20 24 Active medication order composer Take 1 Capsule by mouth once daily. Prostagenics supplement for prostate health Active flecainide 50 mg tabletIndication s:Atrial fibrillation and flutter (HC) Take 1 tablet (50mg) by mouth twice daily through 11/07/2024, then 1 tablet (50mg) by mouth once daily through 11/21/2024, then discontinue 180 Tablet 3 5 11:27 AM CDT 09/27/19 25 Active dilTIAZem CD 120 mg extended release 24 hr capsuleIndicatio ns:Atrial fibrillation and flutter (HC) Take 1 Capsule (120 mg) by mouth once daily. Further Refills at 01/07/25 appointment 90 Capsule 10/03/19 25 Active rivaroxaban (Xarelto) 20 mg tabletIndication s:Atrial fibrillation and flutter (HC) Take 1 Tablet (20 mg) by mouth once daily with evening meal. Further refills at the 01/07/25 appointment. 90 Tablet 10/03/19 25 Active doxazosin 8 mg tabletIndication s:Essential hypertension Take 1 Tablet (8 mg) by mouth at bedtime. 90 Tablet 2 10/10/19 25 Active hydroCHLOROthiaz carly 25 mg tabletIndication s:Essential hypertension Take 1 Tablet (25 mg) by mouth once daily. 90 Tablet 2 10/14/19 25 Active pantoprazole 40 mg delayed-release tabletIndication s:S/P ablation of atrial fibrillation Take 1 Tablet (40 mg) by mouth once daily before a meal for 14 days. 14 Tablet 5 11:27 AM CDT 09/28/19 25 025 furosemide 20 mg tabletIndication s:S/P ablation of atrial fibrillation Take 1 tablet (20mg) by mouth once daily on 09/27, then daily as needed for 5 days or until back to baseline weight 6 Tablet 5 11:27 AM CDT 09/27/19 25 025 Discontinu ed(*Med complete/R egimen complete/L evel of care change) hydroCHLOROthiaz carly 25 mg tabletIndication s:Essential hypertension TAKE 1 TABLET BY MOUTH EVERY DAY 90 Tablet 2 10/04/19 25 10/13/2 025 Discontinu ed(*Availa bility/For mulary change/Cos t of medication ) carvediloL (Coreg) 3.125 mg tabletIndication s:Atrial fibrillation and flutter (HC) Take 1 Tablet (3.125 mg) by mouth two times daily with meals. Further refills at the 01/07/25 appointment. 180 Tablet 10/03/19 25 025 Discontinu ed(*Availa bility/For mulary change/Cos t of medication ) Active Problems Patient Care Coordination No te [...] bioprosthesis 05/29/2019 05/29/2019 Overview (05/30/2019): [address] Campos CAD, s/p IMANI 08/2018 [...] Encounters Date Type Department Care Team Description 11/08/2024 Refill [facility] [address] [place] [address] Allen Gonzalez MD Refill Request (Rosuvastatin tabs 20mg ) 10/16/2024 3:45 PM CDT Office Visit [facility] [address] [place] [address] Allen Gonzalez MD Preoperative Exam (DOS: 10/22/2024, left shoulder repair, Dr. Lu, [facility]) 10/16/2024 Travel 10/16/2024 Refill [facility] [place] [address] [place] [phone] Jordy Dockery MD Refill Request (Flecainide) 10/12/2024 Orders Only [facility] Scanner 1 scan: (1-Ord) SHARON, SHOULDER W/O, 10/12/2024 10/12/2024 Refill [facility] [address] [place] [address] Allen Gonzalez MD Refill Request (Hydrochlorothiazide tabs 25mg) 10/08/2024 Refill [facility] [address] [place] [address] Allen Gonzalez MD Refill Request (Doxazosin Mesylate tabs 8 mg) 10/02/2024 Refill [facility] [address] [place] [address] Allen Gonzalez MD Refill Request (Hydrochlorothiazide) 10/02/2024 Refill [facility] [address] [place] [address] Allen Gonzalez MD Refill Request (Doxazosin Mesylate 8mg) 09/28/2024 Refill [facility] [address] [place] [phone] Jordy Dockery MD Refill Request (Carvedilol) 09/27/2024 Telephone [facility] [address] [facility] [address] [place] [phone] Jordy Dockery MD Care Coordination 09/25/2024 1:26 PM CDT Anesthesia Event [facility] [address] [place] [address] [place] [address] Anibal Pop DO 09/25/2024 10:49 AM CDT - 09/26/2024 11:42 AM CDT Hospital Encounter [facility] [address] [place] [address] Jordy Dockery MD Augustin, Joshua Ryan, DO Weaver, Rebecca Jane, CRNA S/P ablation of atrial fibrillation (Primary Dx); Atrial fibrillation and flutter (HC) Discharge Disposition: Home Self Care 09/25/2024 Travel 09/03/2024 Refill [facility] [address] [facility] [address] [place] [phone] Jordy Dockery MD Refill Request (Carvedilol) 08/21/2024 Telephone [facility] [address] [facility] [address] [place] [phone] Alida Sousa NP Arrhythmia (Schedule ablation) 08/21/2024 Telephone [facility] [address] [place] [phone] Jordy Dockery MD Concerns 08/15/2024 11:20 AM PROSTHETIC DENTIST Office Visit [facility] [place] [address] [place] [address] Alida Sousa NP CV Electrophysiology Est (F/U ED visit. Discuss medication) 08/14/2024 Travel 08/13/2024 Orders Only [facility] [address] [place] [address] Jairo Schmidt MD 1 scan: (1-Ord) ZIO REPORT 08/13/2024 Telephone [facility] Intermediary [facility] [place] [address] [facility] [address] [place] [phone] Jordy Dockery MD Concerns from Last 3 Months Immunizations Immunization Administration Dates Next Due COVID-19 vaccine ([employer] 30mcg/0.3mL) 12YO+ JACOBO-SUCROSE PF, MDV 09/30/2021 COVID-19 vaccine ([employer] 30mcg/0.3mL) PF, MDV 09/06/2020,08/16/2020 Influenza A [...] is your housing situation today? 1 07/01/2024 Interpersonal Safety Answer Date Record ed Are you being hit, kicked, p ushed or yelled at (see row info)? No 09/25/2024 Interpersonal Safety Abuse 12 - 18 Not on file 09/25/2024 Interpersonal Safety Ambulatory Vulnerability No t on file 09/25/2024 Utilities Answer Date Recorded Do you have trouble paying f or utilities (for example, heat, electricity, water, phone)? 1 07/01/2024 Sex and Gender Information Value Date Recorded Sex Assigned at Not on file Legal Sex Male 5:26 AM PROSTHETIC DENTIST Gender Identity Not on file Sexual Orientation Not on file Obstetrics History Last Filed Vital Signs Vital Sign Reading Time Taken Comments Blood Pressure 145/77 10/16/2024 3:37 PM CDT Pulse 60 10/16/2024 3:37 PM CDT Temperature 37.1 C (98.8 F) 09/26/2024 7:51 AM CDT Respiratory Rate 18 09/26/2024 7:51 AM CDT Oxygen Saturation 97% 10/16/2024 3:37 PM CDT Inhaled Oxygen Concentration - - Weight 104.1 kg (229 lb 6.4 oz) 10/16/2024 3:37 PM CDT Height 178.5 cm (5' 10.28) 10/16/2024 3:37 PM C DT Body Mass Index 32.66 10/16/2024 3:37 PM CDT Plan of Treatment Upcoming Encounters Date Type Department Care Team (Late st Contact Info) Description 11/15/2024 9:00 AM CDT Office Visit [facility] [address] [place] [phone] Kimi Lacey, AuD [address] [place] [address] 01/07/2025 9:30 AM CDT Office Visit [facility] [place] [address] [place] [phone] Alida Sousa, HEAD END DESIZING MACHINE OPERATOR [address] [place], [place] [phone] Health Maintenance Due Date Last Done Comments Depression screening for age 12+ 1957 Medicare Wellness for age 65+ 2010 COVID-19 vaccine series ( season) 2024 01/13/2024, 03/28/2023, 04/06/2022, Additional history exists BMI (ht and wt on same day) for age 18+ 10/16/2025 10/16/2024, 08/15/2024, 07/05/2024, Additional history exists Tetanus booster 08/28/2027 08/27/2017, 12/30/2009 Tdap Completed 08/27/2017, 12/30/2009 Pneumococcal series for age 50+ Completed 9, 06/02/2016 Hepatitis C screening for ag e 18-79 Completed 07/08/2021 Zoster (shingles) series for age 50+ Completed 06/07/2022, 03/18/2022, 06/27/2013 RSV vaccine for adults or Completed 03/28/2023 Influenza Vaccine Completed 07/04/2024, , 03/14/2019, Additional history exists Procedures Procedure Name Priority Date/Time Associated Diagnosis Comments SCAN-MRI INTERPRETATION 10/12/2024 12:00 AM CDT SCAN-CARDIAC STRIP 09/26/2024 7: 40 AM CDT EKG 12 LEAD Early AM 09/26/2024 6:18 AM CDT SCAN-CARDIAC STRIP 09/26/2024 4: 15 AM CDT SCAN-CARDIAC STRIP 09/25/2024 8: 15 PM CDT [facility] ACTIVATED CLOTTING TM CV Timed 09/25/2024 3:48 PM CDT [facility] ACTIVATED CLOTTING TM CV Timed 09/25/2024 3:06 PM CDT [facility] ACTIVATED CLOTTING TM CV Timed 09/25/2024 2:42 PM CDT [facility] ACTIVATED CLOTTING TM CV Timed 09/25/2024 2:17 PM CDT EP OTHER PROCEDURE Routine 09/25/2024 1: 54 PM CDT EKG 12 LEAD Preop 09/25/2024 11:47 AM CDT CBC W PLT NO DIFF Preop 09/25/2024 11: 36 AM CDT BASIC METABOLIC PANEL Preop 09/25/2024 11:36 AM CDT EXTENDED HOLTER Routine 08/27/2024 Atrial fibrillation (HC) EKG 12 LEAD Routine 08/15/2024 11:34 AM PROSTHETIC DENTIST Atrial fibrillation and flutter (HC) ANTI HCV Routine 07/08/2021 9:52 AM PROSTHETIC DENTIST Need for hepatitis C screening test from Last 3 Months or Most Recently Relevant to Health Maintenance Results * SCAN-MRI INTERPRETATION (10/12/2024 12:00 AM CDT) Anatomical Region Laterality Modality Other us Scanner OTHER Final Result * SCAN-CARDIAC STRIP (09/26/2024 7:40 AM CDT) us Scanner OTHER Final Result * EKG (09/26/2024 6:18 AM CDT) Only the most recent of3 resultswithin the time period is included. Interpretation Sinus rhythm with Premature supraventricular complexes Otherwise normal ECG When compared with ECG of 25-Sep-2024 11:47, (Unconfirmed) No significant change was found BEYOND NOW Ventricular Rate 60 BPM BEYOND NOW Atrial Rate 60 BPM BEYOND NOW P-R Interval 188 ms BEYOND NOW QRS Duration 98 ms BEYOND NOW QT 424 ms BEYOND NOW QTc 424 ms BEYOND NOW P [place] 64 degrees BEYOND NOW R [place] -26 degrees BEYOND NOW T [place] 30 degrees BEYOND NOW 09/26/2024 6:18 AM CDT 09/27/2024 7:20 PM CDT us Jordy Dockery MD EKG ORD Final Re sult BEYOND NOW [place], [place] * SCAN-CARDIAC STRIP (09/26/2024 4:15 AM CDT) us Scanner OTHER Final Result * SCAN-CARDIAC STRIP (09/25/2024 8:15 PM CDT) us Scanner OTHER Final Result * (ABNORMAL) ACTIVATED CLOTTING TIME [id number] ACT (09/25/2024 3:48 PM CDT) Only the most recent of4 resultswithin the time period is included. [facility] ACTIVATED CLOTTING TIME, POCT 182(H) 74 - 125 sec 09/25/2024 8:04 PM CDT [facility] Blood BLOOD SPECIMEN / Unknown 09/25/2024 3:48 PM CDT 09/25/2024 8:04 PM CDT us Jordy Dockery MD HEMATOLOGY Final Re sult [facility] [address] [place] [address], [place] * EP OTHER PROCEDURE (09/25/2024 1:54 PM CDT) Anatomical Region Laterality Modality X-Ray Angiograph y, X-Ray Angiography 09/25/2024 1:54 PM CDT Narrative Transcriptions Jordy Dockery MD - 09/25/2024 4:02 PM CDT [facility] Electrophysiology Procedure Report Name: CONY LOVE Event Date: 09/25/2024 [facility] ID #: [id number] Date: 1945 Gender: Male Age: 79 [facility] #: [id number] Procedure Performed By: JORDY DOCKERY [facility] Referring Physician: Summary / Conclusions 1. LA tachycardia induced and ablated a. localized reentry inferior MVA region 2. Additional arrhythmia ablation a. Focal AT, localized reentry posterior LA b. Focal AT, localized reentry anterior LA c. Focal AT, localized reentry anterior septal LA 3. Anterior mitral block established 4. Atrial myopathy noted 5. increased baseline LA pressure noted Recommendations / Plan Bedrest for 3 hours Flecainide 50mg bid x 6 weeks then 50mg qd x 2 weeks then stop Continue diltiazem and coreg Pre-Operative Diagnosis ? Atrial Tachycardia Post-Operative Diagnosis ? Same as Pre-operative diagnosis Indications ? Same as Pre-operative diagnosis Consent & [place] Protocol [place] protocol was followed. TIME OUT conducted just prior tostarting procedure confirmed patient identity, site/side, procedure,patient position, and availability of correct equipment and implants (ifapplicable). The risks, benefits, and alternatives of the procedure were discussed withthe patient and written informed consent was obtained. Procedure Description A. Anesthesia Administration: The anesthesiologist managed anesthesia during the procedure, prioritizingpatient comfort and safety. Anesthesia administration followed a tailoredplan considering medical history, current medications, andcontraindications. B. The catheter insertion sites were prepped and draped in the usualsterile fashion. A mixture of 1% lidocaine and bupivacaine was used toanesthetize the cutaneous and subcutaneous tissue overlying the right andleft femoral veins. Ultrasound was used to identify the femoral vein andartery for access. Under ultrasound guidance, and using a micropuncturetechnique, two sheaths were introduced (one 8 Niuean and one 7 Niuean)into the right femoral vein, one 9 Niuean sheath was introduced into theleft femoral vein. C. Real-Time Display and Recording of 12-Lead Surface Electrocardiogramand Intracardiac Electrograms: Throughout the electrophysiology study, the patient's surface andintracardiac electrograms were continuously monitored in real time on anelectrophysiology monitoring system. E. Comprehensive Electrophysiology Study with Pacing, Recording, and 3DMapping: A thorough electrophysiology study was conducted, encompassing a widerange of assessments to analyze the patient's cardiac electrical activityand identify the underlying etiology of the arrhythmia. This approachinvolved: atrial pacing and recording, HIS Bundle electrogram recording, and ventricular pacing and recording. F. Intracardiac Electrogram Analysis and 3D Mapping: The etiology of the arrhythmia was determined through analysis of theintracardiac electrograms, in conjunction with advanced 3D mappingtechniques. The Carto mapping system was employed to create a detailed,three-dimensional representation of the patient's cardiac anatomy andelectrical activation patterns. G. Catheter-Based Ablation Decision: Based on the comprehensive electrophysiology study and the 3D mappingresults, the decision was made to proceed with a catheter-based ablationprocedure aimed to eliminate the arrhythmogenic substrate. H. Transseptal Puncture and Left Atrial Sheath Placement: A transseptal puncture was performed to facilitate access to the leftatrium for the electrophysiology study and ablation procedure. Utilizing aHeartSpan needle, the puncture was executed under the simultaneousguidance of both fluoroscopy and intracardiac echocardiography (ICE). Following the successful transseptal puncture, a preface sheath wascarefully advanced through the created opening in the interatrial septumand into the left atrium. The sheath was maneuvered while continuousmonitoring of its position and orientation was maintained using the ICEimaging. The left atrium was evaluated including the pulmonary veins, atrial size,and left atrial appendage. There was no visible intracardiac thrombus. I) Left atrial pressure transduction was performed immediately posttransseptal access. The mean left atrial pressure was 18-19mmHg. J) Using an Octaray catheter, the left atrial anatomy was mapped onCarto. The atrial volume as measured on Carto was 170cc K) At the end of the procedure, all catheters were removed. IV protaminewas administered to reduce the ACT. The patient was transported to [facility] in stable condition for further monitoring. Procedure Details: NSR with frequent PACs (20-25% burden) was noted at baseline. Catheter PACs repeatedly triggered sustained AT with variable cyclelengths that did then settle into a stable tachycardia with prox-distal CSactivation. Using the octaray, mapping was performed within the LA. This identified during periods of MAT there was focal reentry posteriorLA, anterior septal LA, and anterior LA with wandering from these onelocation to the next. The stable AT was mapped to a zone of localized reentry inferior MVA.Ablation of the zone of slow conduction at this location terminated theAT. Following this, ablation was performed to eliminate posterior LA slowconduction, anterior LA slow conduction, and anterior septal LAconduction. A linear anterior mitral ablation was performed. Persistent anterior LAblock was observed (215ms). Following these ablations, it was noted the mid to superior posterior LAwas isolated. There was PVAI isolation. CTI block was present (210ms). Nofurther arrhythmias could be induced with burst pacing to 220ms. Noadditional zones of slow conduction were identified. Electrophysiology Study Data Basic Intervals Study State Underlying Rhythm Cycle Length WV PA AH HV QRS [place] QRSMorphology Baseline NSR 856 172 Post Ablation NSR 759 200 Ablation Data Atrial Flutter Energy Source Ablation Catheter Used Rhythm During Ablation # of AttemptsMax [place] Max Temp. Result RF QDOT NSR 48 90 30 Success Left atrial flutter was ablated. A mitral isthmus ablation line was placed. Other: posterior anterior Comments: abl time: 751 Catheter Use Catheter Type Catheter Description Insertion Site Intracardiac Site SheathSize Sheath Type Sheath Description Diagnostic SoundStar 3D Diagnostic Ultrasound Catheter Left Femoral VeinRA 9 Standard Sidearm 35cm Diagnostic/Map DecaNav F-Curve Decapolar 2-8-2 spacing Right Femoral VeinCS 7 Fr Standard Sidearm Diagnostic/Map OctaRay F-Curve 2-2-2-2-2 Right Femoral Vein Map/Abl 8Guide Preface Ablation QDOT Right Femoral Vein Map/Abl 8 Guide [id number] Complications ? No complications Procedure(s) Performed ? 3D Mapping ? Intracardiac Echocardiography ? Site-Rite Ultrasound used for vascular access ? SVT Ablation ? Ablation of Separate Mechanism of Tachychardia ? Ablation of Separate Mechanism of Tachychardia ? CS/LA Catheter pace/recording ? 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 Total Flouro Dose: 0 mGy Staff Name Role Jordy Dockery Province Archivist Yuki Bustamante RN Nurse Minh, Aida EPT Monitor [place], Denys EPT Scrub [place], Michele EPT Tooling Specialist [place], [facility] EPT Tooling Specialist Jordy Dockery Province Archivist Yuki Bustamante RN Nurse Minh, Aida EPT Monitor [place], Denys EPT Scrub [place], Michele EPT Tooling Specialist Levy, Teressa EPT Tooling Specialist Medications Ordered and Administered Start Time Stop Time Medication Dose Units Route Ordered By Given By 13:55 0.25% Bupivicaine 10 mL Subcut MD Jordy Damon MD 13:55 0.25% Bupivicaine 10 mL Subcut MD Jordy Damon MD 13:55 1% Lidocaine Hydrochloride 10 mL Subcut MD Jordy Damon MD 13:55 1% Lidocaine Hydrochloride 10 mL Subcut MD Jordy Damon MD 13:58 0.25% Bupivicaine 5 mL None MD Jordy Damon MD 13:58 0.25% Bupivicaine 5 mL None MD Jordy Damon MD 13:58 1% Lidocaine Hydrochloride 5 mL Subcut MD Jordy Damon MD 13:58 1% Lidocaine Hydrochloride 5 mL Subcut MD Jordy Damon MD 14:00 Heparin 35582 Units IV MD Yuki Damon, FLETCHER 14:00 Heparin 88549 Units IV MD Yuki Damon, FLETCHER 15:07 Heparin 2000 Units IV MD Yuki Damon, FLETCHER 15:07 Heparin 2000 Units IV MD Yuki Damon, FLETCHER 15:19 Protamine 50 Mg IV MD Yuki Damon, FLETCHER 15:19 Protamine 50 Mg IV MD Yuki Damon, FLETCHER The anesthesia service monitored the patient?s conscious sedation duringthe procedure. The medications listed above were verbally ordered by me and read back tome as documented above. Refer to the hemodynamic procedure log report for additional casedetails. electronically signed on 09/25/2024 4:02:54 PM with status of Final Jordy Dockery MD Province Archivist [facility] [address] [place] [address] (p) [phone](f) Jordy Dockery MD CV IMAGING Edited R esult - Final * (ABNORMAL) CBC with Platelet no Diff (09/25/2024 11:36 AM CDT) [facility] WHITE BLOOD COUNT 9.2 4.5 - 11.0 thou/cu mm 09/25/2024 11:51 AM CDT [facility] RED BLOOD COUNT 4.00(L) 4.30 - 5.90 mil/cu mm 09/25/2024 11:51 AM CDT [facility] HEMOGLOBIN 12.5(L) 13.5 - 17.5 g/dL 09/25/2024 11:51 AM CDT [facility] HEMATOCRIT 36.3(L) 37.0 - 53.0 % 09/25/2024 11:51 AM CDT [facility] MCV 91 80 - 100 fL 09/25/2024 11:51 AM T [facility] MCH 31.3 26.0 - 34.0 pg 09/25/2024 11:51 AM CDT [facility] MCHC 34.4 32.0 - 36.0 g/dL 09/25/2024 11:51 AM CDT [facility] RDW 12.3 11.5 - 15.5 % 09/25/2024 11:51 AM CDT [facility] PLATELET COUNT 186 140 - 440 thou/cu mm 09/25/2024 11:51 AM CDT [facility] MPV 9.2 6.5 - 11.0 fL 09/25/2024 11:51 AM CDT [facility] NRBC 0.0 % 09/25/2024 11:51 AM CDT [facility] ABS NRBC 0.0 thou /cu mm 09/25/2024 11:51 AM CDT [facility] Blood BLOOD SPECIMEN / Unknown Non-Lab Venipuncture / Unknown 09/25/2024 11:36 AM CDT 09/25/2024 11:46 AM CDT us Jordy Dockery MD HEMATOLOGY Final Re sult [facility] [address] [place] [address], * (ABNORMAL) Basic Metabolic Panel (09/25/2024 11:36 AM CDT) SODIUM 142 136 - 145 mmol/L 09/25/2024 12:15 PM CDT [facility] POTASSIUM 4.4 3.5 - 5.1 mmol/L 09/25/2024 12:15 PM CDT [facility] CHLORIDE 107 98 - 107 mmol/L 09/25/2024 12:15 PM CDT [facility] CO2,TOTAL 24 22 - 29 mmol/L 09/25/2024 12:15 PM CDT [facility] ANION GAP 11 5 - 18 09/25/2024 12:15 PM CDT [facility] GLUCOSE 102(H) 70 - 99 mg/dL 09/25/2024 12:15 PM T [facility] CALCIUM 9.2 8.8 - 10.4 mg/dL 09/25/2024 12:15 PM T [facility] Comment: Reference ranges for this test were updated on 05/01/2024 to reflect our healthy population more accurately. Reference range changes are not retroactively applied to results, but previous results using the same methodology can be interpreted in the context of the new reference range. BUN 26(H) 8 - 23 mg/dL 09/25/2024 12:15 PM [facility] CREATININE 1.39(H) 0.70 - 1.20 mg/dL 09/25/2024 12:15 PM [facility] BUN/CREAT RATIO 19 10 - 20 12:15 PM [facility] eGFR 52(L) >90 mL/min/1. 73m2 09/25/2024 12:15 PM T [facility] Comment:As of 2021, eG FR is calculated by the CKD-EPI creatinine equation without race adjustment. eGFR can be influenced by muscle mass, exercise, and diet. The reported eGFR is an estimation only and is only applicable if the renal function is stable. Blood BLOOD SPECIMEN / Unknown Non-Lab Venipuncture / Unknown 09/25/2024 11:36 AM CDT 09/25/2024 11:46 AM CDT us Jordy Dockery MD CHEMISTRY Final Re sult [facility] [address] [place] [address], * EXTENDED HOLTER (08/27/2024) us Jairo Schmidt MD CARDIAC SERVICES ORD Final Result * ANTI HCV (07/08/2021 9:52 AM PROSTHETIC DENTIST) HEPATITIS C ANTIBODY Non-React asiya Non-React asiya 07/08/2021 6:37 PM PROSTHETIC DENTIST [facility] Comment:Antibodies to HCV no t detected; does not exclude the possibility of exposure to HCV. Blood BLOOD SPECIMEN / Unknown Venipuncture / Unknown 07/08/2021 9:52 AM PROSTHETIC DENTIST 07/08/2021 9:52 AM PROSTHETIC DENTIST Allen Gonzalez MD SEND OUTS Final Result [facility] [address] [place] [address], [place] from Last 3 Months or Most Recently Relevant to Health Maintenance Insurance [employer] ONLY MEDICARE PART B HB ONLY [employer] HB MEDICARE PART A HB ONLY DANAE [id number] Advance Directives * Full Code (Latest Code Status on File) Date Activated Date Inactivated Comments 09/25/2024 3:27 PM 09/26/2024 1:46 PM Question Answer Comments Code Status Discussion: Other (specify in commen ts): * Full Code Date Activated Date Inactivated Comments 09/11/2021 1:22 [...] Comments 03/16/2019 8:32 AM 03/17/2019 3:00 PM Care Teams [employer] Relationship Specialty Start Date End Date Allen Gonzalez MD [address] [place] [address] PCP - General 10/05/05 Allen Winslow MD [address] [place] [address] Cardiology Cardiovascular Disease 12/02/09
[2024-11-08 07:57] VITALS: BP 166/71; PULSE 62; RESP 18; TEMP 36.1; O2SAT 98; BMI 33.0
--- NOTE | 2024-11-08 08:11 | ED.GENADULT ---
HPI - General Adult General Time Seen by Provider: 08:11 Date Seen: 11/08/24 Chief complaint: Arrhythmia/Palpitations Stated complaint: Heart arrythmia Time Seen by Provider: 11/08/24 08:10 Source: patient Mode of arrival: ambulatory Limitations: no limitations History of Present Illness HPI narrative: Johanny is a 79-year-old male with history of atrial flutter on chronic anticoagulation with Xarelto, status post cardioversion 2 years ago, status post cardiac ablation 0 09/2024,he is also on flecainide and diltiazem, heart failure, osteoarthritis, coronary artery disease status post stent placement, presents emergency department via private car with cardiac arrhythmia. patient states over the last few weeks he has had worsening exertional shortness of breath, he also gets intermittent chest tightness, no real pain, denies any lightheadedness or dizziness, denies any worsening lower extremity edema, denies any orthopnea, he also had a rotator cuff repair in his left shoulder 2 weeks ago. patient has been religiously taking his anticoagulation. He sees Cardiology at [place]. denies any cough, no fevers or chills, no nausea vomiting, denies any back pain, abdominal pain, normal urinary and bowel habits. patient is very aware of his heart, he feels heart pounding during the night. no new stressors. Related Data Home Medications ?Medication ?Instructions ?Recorded ?Confirmed cholecalciferol (vitamin D3) 50 2,000 unit PO DAILY 01/05/22 11/02/24 mcg (2,000 unit) capsule (Vitamin D3) cpap 01/05/22 11/02/24 doxazosin 8 mg tablet 8 mg PO HS 01/05/22 11/02/24 hydrochlorothiazide 25 mg tablet 25 mg PO DAILY 01/05/22 11/02/24 multivitamin (Multiple Vitamins 1 tab PO DAILY 01/05/22 11/02/24 tablet) omega-3 fatty acids 500 mg capsule 500 mg PO DAILY 01/05/22 11/02/24 rosuvastatin 20 mg tablet (Crestor) 20 mg PO HS 01/05/22 11/02/24 saw palmetto 450 mg capsule 450 mg PO DAILY 01/05/22 11/02/24 turmeric 400 mg capsule 400 mg PO QDAY 01/05/22 11/02/24 vitamin A-vitamin C-vit E-min 1 tab PO DAILY 01/05/22 11/02/24 tablet amoxicillin 500 mg capsule 2,000 mg PO ONCE 01/06/22 11/02/24 diltiazem HCl 120 mg 120 mg PO DAILY 01/06/22 11/02/24 capsule,extended release 24 hr flecainide 50 mg tablet 50 mg PO Q12H 01/06/22 11/02/24 glucosamine-chondroitin 500 mg-400 1 tab PO DAILY 04/12/22 11/02/24 mg tablet (Cosamin DS) rivaroxaban 20 mg tablet (Xarelto) 20 mg PO QPM 07/13/22 11/02/24 loteprednol etabonate 0.5 % eye drp ophthalmic (eye) 04/17/24 11/02/24 drops,suspension Previous Rx's ?Medication ?Instructions ?Recorded tizanidine 2 mg capsule 2 mg PO TID PRN muscle spasticity 12/17/23 #30 caps carvedilol 3.125 mg tablet (Coreg) 3.125 mg PO BID #60 tabs 08/13/24 meloxicam 15 mg tablet 15 mg PO QDAY #30 tabs 10/11/24 oxycodone 5 mg tablet 5 mg PO Q6H PRN pain #10 tabs 10/19/24 sennosides 8.6 mg-docusate sodium 1 tab-cap PO BID #30 tabs 10/22/24 50 mg tablet (Senna-S) oxycodone 5 mg tablet 5 mg PO Q8-12H PRN pain #10 tabs 11/02/24 furosemide 20 mg tablet (Lasix) 20 mg PO DAILY #5 tabs 11/08/24 Allergies Allergy/AdvReac Type Severity Reaction Status Date / Time dabigatran etexilate (From Allergy felt Verified 11/08/24 08:02 Pradaxa) poorly. ok on xarelto Review of Systems Status of ROS: Reports: 10 or more systems reviewed and unremarkable except as noted in History and below [facility] Medical History (Updated 11/08/24 @ 10:29 by Lei Orellana MD) Plantar fasciitis, right ?M72.2 - Plantar fascial fibromatosis (ICD-10) Sprain of right hand ?S63.91XA - Sprain of unspecified part of right wrist and hand, initial encounter (ICD-10) Biceps tendon tear ?S46.219A - Strain of muscle, fascia and tendon of other parts of biceps, unspecified arm, initial encounter (ICD-10) Strain of left biceps ?S46.212A - Strain of muscle, fascia and tendon of other parts of biceps, left arm, initial encounter (ICD-10) Chronic anticoagulation ?Z79.01 - intermediate frame tender (current) use of anticoagulants (ICD-10) Heart failure due to valvular disease ?I50.9 - Heart failure, unspecified (ICD-10) ?I38 - Endocarditis, valve unspecified (ICD-10) Chronic kidney disease ?N18.9 - Chronic kidney disease, unspecified (ICD-10) Tear of medial meniscus of right knee ?S83.241A - Other tear of medial meniscus, current injury, right knee, initial encounter (ICD-10) Osteoarthritis of right knee ?M17.11 - Unilateral primary osteoarthritis, right knee (ICD-10) Tachycardia ?R00.0 - Tachycardia, unspecified (ICD-10) PAC (premature atrial contraction) ?I49.1 - Atrial premature depolarization (ICD-10) GERD (gastroesophageal reflux disease) ?K21.9 - Gastro-esophageal reflux disease without esophagitis (ICD-10) Sleep apnea ?G47.30 - Sleep apnea, unspecified (ICD-10) Hypertension ?I10 - Essential (primary) hypertension (ICD-10) Irregular heart beat ?I49.9 - Cardiac arrhythmia, unspecified (ICD-10) Hyperlipidemia ?E78.5 - Hyperlipidemia, unspecified (ICD-10) Cardiac arrhythmia ?I49.9 - Cardiac arrhythmia, unspecified (ICD-10) Tinnitus ?H93.19 - Tinnitus, unspecified ear (ICD-10) Surgical History (Updated 11/02/24 @ 11:08 by Roberto Barba PA-C) History of arthroscopy of left shoulder (10/22/24) ?Z98.890 - Other specified postprocedural states (ICD-10) History of arthroplasty of right knee (05/09/23) ?Z96.651 - Presence of right artificial knee joint (ICD-10) Hx of left cataract extraction (11/17/22) ?Z98.42 - Cataract extraction status, left eye (ICD-10) History of right cataract surgery (11/03/22) ?Z98.41 - Cataract extraction status, right eye (ICD-10) Hx of atrioventricular megan ablation ?Z98.890 - Other specified postprocedural states (ICD-10) Hx of hemorrhoidectomy ?Z98.890 - Other specified postprocedural states (ICD-10) Hx of hernia repair ?Z98.890 - Other specified postprocedural states (ICD-10) ?Z87.19 - Personal history of other diseases of the digestive system (ICD-10) H/O arthroscopy of shoulder (04/14/22) ?Z98.890 - Other specified postprocedural states (ICD-10) H/O heart artery stent (09/13/08) ?Z95.5 - Presence of coronary angioplasty implant and graft (ICD-10) Family History Father Throat cancer Mother Heart problem Social History Narrative: , retired, former smoker (quit 1975) He lives with his [facility]. He lives in a two-story house with the bedroom and bathroom upstairs. Main living area, kitchen and bathroom downstairs. What is your current living situation?: I presently have a place to live In the past 12 months, utilities in danger of being shut off: no In past 12 months, lack of transportation kept you from medical appts, meetings, work, or getting things needed for daily living: no In the past 12 mos, have been you worried that your food would run out before you had money to buy more?: never true In the past 12 mos, the food you bought just didn't last and you didn't have money to buy more?: never true Smoking Status: Former smoker Do you use any of these nicotine containing products: None Second hand tobacco smoke exposure: No How often do you have a drink containing alcohol: monthly or less Alcohol type: beer How many standard drinks containing alcohol do you have on a typical day: 1 or 2 How often do you have six or more drinks on one occasion: Less than monthly AUDIT-C Alcohol total score: 2 Non-prescribed substance use: denies use Caffeine: Yes Are you now , , , , never or living with a partner: Social isolation score (0-1 are the most socially isolated patients): 1 How often does anyone, including family, friends and others, physically hurt you: never How often does anyone, including family, friends and others, insult or talk down to you: never How often does anyone, including family, friends and others, threaten you with harm: never How often does anyone, including family, friends and others, scream or curse at you: never service: No Exam Narrative: Exam Narrative: General: NAD, laying comfortably HEENT: pupils equal round reactive to light, extraocular muscles intact neck: no JVD, supple lungs: clear to auscultation bilaterally Heart: normal sinus rhythm S1-S2 abdomen: soft, nontender to palpation muscle skeletal: +1 pitting edema lower extremities bilaterally neuro: alert awake and oriented x3 Const: Vital Signs, click to edit/add: Vital Signs - 24 hr 11/08/24 07:57 11/08/24 10:02 Temperature 97 F L 96.8 F L Pulse Rate [Pulse Oximeter] 62 53 L Respiratory Rate 18 18 Blood Pressure [Ri ght Upper Arm] 166/71 H 161/73 H Pulse Oximetry 98 97 Oxygen Delivery Me thod Room Air Room Air Course Course ED Course: 8:30 AM: aidet performed. vitals are stable at this time,, workup to rule out anything acute including ischemia versus acute on chronic heart failure, will obtain EKG, NT proBNP, troponin I, CBC, INR, CMP, XR chest PA and lateral. Will plan to rule out any acute on chronic heart failure, pneumonia, less likely ACS, less likely PE patient is anticoagulated patient is normal sinus rhythm at this time. Differential includes ACS, mi, acute on chronic heart failure, metabolic abnormalities, pulmonary embolism, pneumothorax, pericarditis, chest wall pain as well as other etiologies. Reevaluation(s) Time of Reevaluation #1: 10:05 Reevaluation #1: Imaging: IMPRESSION: Bibasilar symmetrical diffuse reticular opacities and right subpleural interlobular septal thickening consistent with interstitial edema. Findings are similar to the prior examination. Unchanged cardiomegaly. No focal consolidation to indicate alveolar edema. No significant joint effusion.. EKG showed normal sinus rhythm, bpm. 62, incomplete right bundle-branch block and septal infarct age undetermined but seen on previous, no acute ST changes compared to previous. Imaging showed interstitial edema, NT proBNP elevated at 11 40, CBC showed worsening chronic anemia, 10.1, no leukocytosis, comprehensive metabolic panel showed potassium 3.5, normal renal function LFTs, troponin I was negative. Magnesium 1.8, INR 1.98, based on increased NT proBNP and vascular congestion seen on imaging will give him oral dose 20 mg, patient is not hypoxic, will also set him up with a Z on patch over the next 14 days due to his heart palpitations, prescription for 20 mg oral Lasix over the next 5 days sent to his pharmacy, he will follow-up with his primary care provider in the next 7-10 days. Return precautions given. Vital Signs Vital signs: Initial Vital Signs Temperature 97 F L 11/08/24 07:57 Temperature Source Temporal Artery Scan 11/08/24 07:57 Pulse Rate 62 11/08/24 07:57 Pulse Rhythm Regular 11/08/24 07:57 Pulse Strength 3+ Normal 11/08/24 07:57 Respiratory Rate 18 11/08/24 07:57 Blood Pressure 166/71 H 11/08/24 07:57 Blood Pressure Mean 102 11/08/24 07:57 Blood Pressure Position Sitting 11/08/24 07:57 Pulse Oximetry 98 11/08/24 07:57 Oxygen Delivery Method Room Air 11/08/24 07:57 Vital Signs Temperature 97 F L 11/08/24 07:57 Pulse Rate 62 11/08/24 07:57 Respiratory Rate 18 11/08/24 07:57 Blood Pressure 166/71 H 11/08/24 07:57 Pulse Oximetry 98 11/08/24 07:57 Oxygen Delivery Method Room Air 11/08/24 07:57 Temperature 96.8 F L 11/08/24 10:02 Pulse Rate 53 L 11/08/24 10:02 Respiratory Rate 18 11/08/24 10:02 Blood Pressure 161/73 H 11/08/24 10:02 Pulse Oximetry 97 11/08/24 10:02 Oxygen Delivery Method Room Air 11/08/24 10:02 Medical Decision Making Lab Data Labs: Lab Results 11/08/24 Range/Units 08:46 WBC 6.41 (4.50-11.00) K/uL RBC 3.24 L (4.30-5.90) m/uL Hgb 10.1 L (13.5-17.5) gm/dL Hct 29.4 L (37.0-53.0) % MCV 91 (80-100) fL MCH 31 (26-34) pg MCHC 34 (32-36) gm/dL RDW Coeff of [place] 11.8 (11.5-15.5) % Plt Count 182 (140-440) K/uL Neut % (Auto) 74.2 H (42.0-72.0) % Lymph % (Auto) 12.6 L (20-44) % [place] % (Auto) 9.0 (0.0-11.0) % Eos % (Auto) 3.4 (0.0-7.0) % Baso % (Auto) 0.6 (0.0-3.0) % Neut # (Auto) 4.80 (1.7-7.0) K/uL Lymph # (Auto) 0.80 L (0.90-2.90) K/uL [place] # (Auto) 0.60 (0.00-0.90) K/UL Eos # (Auto) 0.22 (0.00-0.50) K/uL Baso # (Auto) 0.04 (0.00-0.30) K/uL Abs Immat Gran (auto) 0.01 (0.00-0.30) K/uL Imm/Tot Granulo (auto) 0.2 % INR 1.98 H (0.91-1.10) Sodium 138 (135-149) mmol/L Potassium 3.5 L (3.6-5.1) mmol/L Chloride 106 (96-114) mmol/L Carbon Dioxide 28 (20-32) mmol/L Anion Gap 4 L (7-15) mEq/L BUN 20 (7-30) mg/dL Creatinine 1.2 (0.5-1.5) mg/dL Estimated Creat Clear 51.54 Estimated GFR 62 ml/min Glucose 119 H (60-115) mg/dL Calcium 8.7 (8.4-10.6) mg/dL Magnesium 1.8 (1.5-2.6) mg/dL Total Bilirubin 0.6 (0.1-1.5) mg/dL AST 35 (12-35) U/L ALT 25 (4-50) U/L Alkaline Phosphatase 66 (40-150) U/L Troponin I < 0.01 (0.01-0.04) ng/mL NT-Pro-B Natriuret Pep 1140 pg/mL Total Protein 6.1 (6.0-8.3) g/dL Albumin 3.6 (3.3-5.0) g/dL Discharge Plan Discharge Clinical Impression: Pulmonary vascular congestion, History of atrial flutter, Heart palpitations Patient Disposition: Home, Self-Care Instructions: Heart Palpitations (ED) Additional Instructions: To take additional 20 mg oral Lasix daily over the next 5 days, follow-up with primary care provider in the next 7-10 day days for ER follow-up. Patient was also placed with Leandro 14 day monitor due to his palpitations. Return if worsening symptoms Prescriptions: New furosemide [Lasix] 20 mg tablet 20 mg PO DAILY Qty: 5 0RF No Action (DME) cpap 0 .Route .MEDSUPPLY multivitamin [Multiple Vitamins] Tablet 1 tab PO DAILY saw palmetto 450 mg capsule 450 mg PO DAILY Rx Instructions: give with food (meal/snack) turmeric 400 mg capsule 400 mg PO QDAY omega-3 fatty acids 500 mg capsule 500 mg PO DAILY vitamin A-vitamin C-vit E-min Tablet 1 tab PO DAILY cholecalciferol (vitamin D3) [Vitamin D3] 50 mcg (2,000 unit) capsule 2,000 unit PO DAILY doxazosin 8 mg tablet 8 mg PO HS hydrochlorothiazide 25 mg tablet 25 mg PO DAILY rosuvastatin [Crestor] 20 mg tablet 20 mg PO HS diltiazem HCl 120 mg capsule,extended release 24hr 120 mg PO DAILY flecainide 50 mg tablet 50 mg PO Q12H amoxicillin 500 mg capsule 2,000 mg PO ONCE Patient Comments: TAKE 4 CAPSULES BY MOUTH 1 HOUR BEFORE PROCEDURE Xarelto 20 mg tablet 20 mg PO QPM loteprednol etabonate 0.5 % drops,suspension ophthalmic (eye) oxycodone 5 mg tablet 5 mg PO Q8-12H MDD 6 PRN (Reason: pain) Qty: 10 0RF glucosamine-chondroitin [Cosamin DS] 500-400 mg tablet 1 tab PO DAILY tizanidine 2 mg capsule 2 mg PO TID PRN (Reason: muscle spasticity) Qty: 30 0RF Rx Instructions: Take 2 mg every 6-8 hours. Can increase does up to 4-6 mg every 6-8 hours if initial dose is not helping. Do not take more than 3 times in a 24 hour period or more than 36 mg in a day sennosides-docusate sodium [Senna-S] 8.6-50 mg tablet 1 tab-cap PO BID Qty: 30 1RF Rx Instructions: Take while using narcotics. If loose stools, then stop this medication. carvedilol [Coreg] 3.125 mg tablet 3.125 mg PO BID Qty: 60 2RF Rx Instructions: must administer with a meal/food meloxicam 15 mg tablet 15 mg PO QDAY Qty: 30 3RF oxycodone 5 mg tablet 5 mg PO Q6H PRN (Reason: pain) Qty: 10 0RF Follow Up/Referrals: Allen Gonzalez MD [Primary Care Provider] - Stand Alone Forms: [employer] Info Instructions
--- NOTE | 2024-11-08 08:19 | CRLHL7_ITS ---
For Patients: As a result of the Century Cures Act, medical imaging exams and procedure reports are released immediately into your electronic medical record. You may view this report before your referring provider. If you have questions, please contact your health care provider. INDICATION: worsening HF? (Sic) No additional clinical history is given. COMPARISON: 10/24/2023 TECHNIQUE: PA and lateral views of the chest. FINDINGS: Medical Devices: None. Lung Volumes: Adequate inspiration. No significant atelectasis. Lungs: Bibasilar symmetrical diffuse reticular opacities and right subpleural interlobular septal thickening consistent with interstitial edema. No focal consolidation. Pleura and Pleural spaces: No significant pleural effusion. No pneumothorax. Mediastinum: Unchanged cardiomegaly. TAVR. Bony Thorax and Soft Tissues: No significant incidental findings. IMPRESSION: Bibasilar symmetrical diffuse reticular opacities and right subpleural interlobular septal thickening consistent with interstitial edema. Findings are similar to the prior examination. Unchanged cardiomegaly. No focal consolidation to indicate alveolar edema. No significant joint effusion.. Dictated by Manuel Torres MD @ 11/08/2024 10:01:34 AM (Electronically Signed)
[2024-11-08 08:54] LABS: Basophils Absolute Auto 0.04 K/uL (0.00-0.30); Basophils Percent Auto 0.6 % (0.0-3.0); Eosinophils Absolute Auto 0.22 K/uL (0.00-0.50); Eosinophils Percent Auto 3.4 % (0.0-7.0); Hematocrit 29.4 % (37.0-53.0); Hemoglobin* 10.1 gm/dL (13.5-17.5); Immature Granulocytes Abs Auto 0.01 K/uL (0.00-0.30); Immature Granulocytes Pct Auto 0.2 %; Lymphocytes Percent Auto 12.6 % (20-44); Mean Corpuscular HGB Conc 34 gm/dL (32-36); Mean Corpuscular Hemoglobin 31 pg (26-34); Mean Corpuscular Volume 91 fL (80-100); Neutrophils Percent Auto 74.2 % (42.0-72.0); Platelet Count* 182 K/uL (140-440); RDW Coefficient of Variation % 11.8 % (11.5-15.5); Red Blood Count 3.24 m/uL (4.30-5.90); White Blood Count* 6.41 K/uL (4.50-11.00)
[2024-11-08 08:55] LABS: Slide Review Reflex No
[2024-11-08 09:17] LABS: Albumin* 3.6 g/dL (3.3-5.0); Chloride* 106 mmol/L (96-114); Sodium* 138 mmol/L (135-149)
[2024-11-08 09:18] LABS: Potassium* 3.5 mmol/L (3.6-5.1)
[2024-11-08 09:20] LABS: Alanine Aminotransferase* 25 U/L (4-50); Alkaline Phosphatase* 66 U/L (40-150); Anion Gap 4 mEq/L (7-15); Aspartate Amino Transferase* 35 U/L (12-35); Bilirubin Total* 0.6 mg/dL (0.1-1.5); Blood Urea Nitrogen* 20 mg/dL (7-30); Carbon Dioxide* 28 mmol/L (20-32); Creatinine* 1.2 mg/dL (0.5-1.5); Est. Creatinine Clearance* 51.54; Estimated Glomerular Filt Rate 62 ml/min; Total Protein* 6.1 g/dL (6.0-8.3)
[2024-11-08 09:21] LABS: Calcium* 8.7 mg/dL (8.4-10.6); Glucose* 119 mg/dL (60-115); INR 1.98 (0.91-1.10); Magnesium* 1.8 mg/dL (1.5-2.6); Prothrombin Time 23.6 Seconds
[2024-11-08 09:42] LABS: NT Pro B Type NatriureticPept* 1140 pg/mL; Troponin I* < 0.01 ng/mL (0.01-0.04)
[2024-11-08 10:02] VITALS: BP 161/73; PULSE 53; RESP 18; TEMP 36; O2SAT 97
[2024-11-08] MEDS: FUROSEMIDE 20 MG TABLET PO (10:52)
== END 2024-11-08 11:05 | disposition home or self-care (01) ==
PROVIDERS: Emergency Provider Student in an Organized Health Care Education/Training Program; PCP Family Medicine
DX: R00.2 Palpitations (principal); J81.1 Chronic pulmonary edema
CPT/HCPCS: 36415; 71046; 80053; 83735; 83880; 84484; 85025; 85610; 93005; 93246; 99283; 99284; A9270

== ENCOUNTER 2025-02-05 07:30 | Outpatient (RCR) | payer MEDICARE, OTHER, SELFPAY ==
--- NOTE | 2024-11-12 12:51 | PT.OPEX ---
PT [place] Outpatient Eval PT [facility] Outpatient Eval Start: 11/12/24 07:45 Freq: Status: Active Protocol: Document 11/12/24 08:34 DECLAN (Rec: 11/12/24 12:51 DECLAN [id number]) E-signed By Kiersten Desai PT Physical Therapy Outpatient Evaluation Insurance Information Medical Diagnosis LEFT SHOULDER RTC TEAR S/P RCR, DCE, SAD, EXTENSIVE DEBRIDEMENT 10/22/24 Treating Diagnosis LEFT SHOULDER PAIN LEFT SHOULDER STIFFNESS LEFT SHOULDER WEAKNESS Imaging Report Information MRI 10/12/24: Supraspinatus: Moderate-sized full-thickness full-width tear of the supraspinatus tendon just proximal to its attenuated, but otherwise intact, insertional footprint measures up to approximately 15 mm in AP dimension an up to approximately 10 mm in ML dimension (coronal images 7-11 ; sagittal images 6-11). Mild decreased supraspinatus muscle bulk and mild Goutallier stage 1-2 fatty infiltration without more prominent muscle atrophy at this time. Infraspinatus: Deep surface tendinosis and attenuation extends into the adjacent anterior towards mid infraspinatus tendon without full-thickness tear. No tendon or myotendinous junction retraction. No muscle atrophy. Teres minor: Unremarkable. Subscapularis: Mild tendinosis and likely mild shallow deep attenuation of the subscapularis tendon without larger or full-thickness tear. No tendon or myotendinous junction retraction. No muscle atrophy. Deltoid: Unremarkable Referring MD DR. OLVIN MCMULLEN Subjective Preferred Name GIANA Subjective PATIENT DESCRIBES LOSING BALANCE WHEN DESCENDING THE STAIRS HE RECENTLY REPAIRED WITH A LESS WIDE STEP. HE LANDED ON HIS LEFT SHOULDER AND, SUBSEQUENTLY, TORE HIS RTC (SUPRA) TENDON. HE HAS HAD HIS CONTRALATERAL RCR REPAIRED AND HAS BEEN PERFORMING HIS EXERCISES AND WEARING HIS SLING INSTRUCTED. HE DENIES SIGNIFICANT PAIN USING PO OTC AND ICE FOR SYMPTOM MGMT. 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 Functional Test Performed & Score [id number] Assessment Assessment/Impression PATIENT IS A 79 YO REFERRED BY [employer] L RCR, SAD, DCE, EXTENSIVE GHJ DEBRIDEMENT () . PATIENT DEMONSTRATES SIGNS AND SYMPTOMS CONSISTENT WITH L RCR, SAD, DCE, EXTENSIVE GHJ DEBRIDEMENT CONTRIBUTING TO THEIR FUNCTIONAL IMPAIRMENTS OF LIMITED USE OF LUE, LIFTING, CARRYING, REACHING .PATIENT REPORTS MINIMAL DISCOMFORT AND COMPLIANT WITH WEARING HIS SLING AND SWATH. HE DESCRIBES TIGHTNESS/DISCOMFORT WHEN LAYING SUPINE WHICH ARE ALLEVIATED BY PROPPED POSTERIOR WITH PILLOW, REST, PO OTC, ICE . PATIENT HAS NOTABLE OBJECTIVE FINDING INCLUDING RESTRICTED AROM, LIMITED PROM, SHOULDER ANTERIOR PAIN, MIN EDEMA, INCISION PRISTINE WHICH ALL ARE CONTRIBUTING TO THE CLINICAL IMPRESSION. PATIENT IS A GOOD CANDIDATE FOR SKILLED PHYSICAL THERAPY TO ADDRESS AFOREMENTIONED DEFICITS ABOVE IN ORDER TO RETURN TO ASYMPTOMATIC STATUS AND RETURN TO UNRESTRICTED MVMTS. INTERVENTION IS NECESSARY BY WAY OF THERAPEUTIC EXERCISE, MANUAL THERAPY, NEUROMUSCULAR RE- EDUCATION, STABILIZATION/ PROPRIOCEPTION, MODALITIES FOR SYMPTOM MGMT, PATIENT EDUCATION, DRY NEEDLING PLEASE REFER TO APPROPRIATE SECTION WITHIN THIS EVALUATION FOR COMPLETE LIST OF GOALS AND PLAN OF CARE. DISCHARGE PLAN AND CRITERIA IS FOR PATIENT TO ACHIEVE THE GOALS LISTED BELOW OR UNTIL MAX POTENTIAL MET. PATIENT VERBALIZED UNDERSTANDING AND AGREEABLE TO POC, FREQ, AND GOALS ESTABLISHED. Primary Functional Limitations USE OF LUE, REACHING, CARRYING, LIFTING, ADL'S Plan of Care Rehabilitation Potential Good Physical Therapy Goals 1. DECREASE PAIN TO </3/10 WITH DAILY ACTIVITIES AND WITH PROGRESSION OF PHYSICAL THERAPY OVER THE NEXT 6-8 WEEKS. 2. IMPROVE L SHOULDER PROM TO WFL WITHIN 4-6 WEEKS TO PREPARE FOR RETURN TO FUNCTIONAL USE. 3. IMPROVE AROM TO WFL TO RETURN TO FUNCTIONAL USE OF LEFT SHOULDER FOR DAILY ACTIVITIES/WORK/RECREATIONAL ACTIVITIES IN THE NEXT 8-10 WEEKS. 4. IMPROVE L SHOULDER STRENGTH TO WFL IN THE NEXT 10-12 WEEKS FOR RETURN TO FULL FUNCTIONAL USE OF R/L SHOULDER /UE FOR DAILY ACTIVITIES/ WORK /RECREATIONAL ACTIVITIES. 5. PATIENT WILL DEMONSTRATE INDEPENDENCE WITH HIS HEP WITHIN 12-16 WEEKS FOR PROGRESSION OF THE ABOVE GOALS , ONGOING SELF MGMT OF ANY SYMPTOMS, ONGOING PROGRESS/ IMPROVEMENTS IN ROM/STRENGTH/ FUNCTION FOR RETURN TO FULL FUNCTIONAL USE OF LUE Treatment Plan/Direct Interventions Dry Needling,Ice/Cold/ Vasopneumatic,Joint Mobilization,Manual Therapy, Neuromuscular Re-ed,Orthotics/ Braces,Self-Care/Home Management,Therapeutic Activities,Therapeutic Exercises,Ultrasound Frequency/Duration 1-2X/WK Patient Will Be Discharged From Therapy Completion of LTG(s), Independently Progressing Evaluation Billing Untimed Code Treatment Minutes 20 PT Eval No Charge No Complexity Low Certification Information Initial Certification Date 11/12/24 Ending Certification Date 02/09/25 Provider Signature Required Yes Provider Signature Shows Agreement With POC & Medical Necessity Physician NPI Number Write NPI# Here Physician Comment/Change : Physician Signature & Date Requested Please Sign/Date Here
== END 2025-02-05 10:24 | disposition home or self-care (01) ==
PROVIDERS: PCP Family Medicine; Visit Provider Orthopaedic Surgery Sports Medicine
DX: Z48.89 Encounter for other specified surgical aftercare (principal); Z51.89 Encounter for other specified aftercare
CPT/HCPCS: 97110; 97140; 97161

== ENCOUNTER 2025-05-21 19:10 | Emergency (ER) | payer MEDICARE, OTHER, SELFPAY ==
[2025-05-21] VITALS (13 sets, daily range): BP systolic 118–149; BP diastolic 74–95; PULSE 80–128; RESP 10–23; O2SAT 93–98; BMI 31.3
--- OUTSIDE RECORDS SUMMARY | 2025-05-21 19:12 | XMS_ITS | Clinical Summary ---
Author Organization [facility] Address [address] [place] [id number] Care Team Providers Care Tape Recording Machine Operator Name Role Phone Allen Gonzalez MD Primary Care Provider Allen Winslow MD Unavailable [phone] Allergies Active Allergy Reactions Criticality Noted Date Comments Atenolol Other - Describe In Comment Field 10/16/2024 Fatigue, shortness of breath. Carvedilol Other - Describe In Comment Field 10/16/2024 [place] terrible, fatigue. Lisinopril Cough Low 06/25/2008 Losartan Other - Describe In Comment Field 05/11/2012 Exercise intolerance. Dabigatran Etexilate Other - Describe In Comment Field 07/07/2022 [place] poorly. Ok on Xarelto. Medications cholecalciferol (VITAMIN D3) 2,000 unit capsule Take 1 capsule by mouth once daily. 0 0 Active CPAPIndications: NELLI (obstructive sleep apnea) CPAP machine for home use at pressure 5cm, nasal mask x1/3month with nasal pillows x 2/mo 1 Each 11 4 Active amoxicillin (AMOXIL) 500 mg capsuleIndicatio ns:Need for SBE (subacute bacterial endocarditis) prophylaxis TAKE 4 CAPSULES BY MOUTH ONE HOUR BEFORE PROCEDURE. 12 Capsule 1 4 Active medication order composer Take 1 Capsule by mouth once daily. Prostagenics supplement for prostate health Active doxazosin 8 mg tabletIndication s:Essential hypertension Take 1 Tablet (8 mg) by mouth at bedtime. 90 Tablet 2 5 Active hydroCHLOROthiaz carly 25 mg tabletIndication s:Essential hypertension Take 1 Tablet (25 mg) by mouth once daily. 90 Tablet 2 5 Active rosuvastatin 20 mg tabletIndication s:Mixed hyperlipidemia,A SHD (arterioscleroti c heart disease) Take 1 Tablet (20 mg) by mouth at bedtime. 90 Tablet 2 5 Active amLODIPine 5 mg tabletIndication s:Benign essential HTN Take 1 Tablet (5 mg) by mouth once daily. 90 Tablet 3 5 Active furosemide 20 mg tabletIndication s:Heart failure with preserved ejection fraction, unspecified HF chronicity (HC) One tab oral daily as needed for fluid retention. 30 Tablet 5 Active dilTIAZem CD (CARDIZEM CD) 120 mg extended release 24 hr capsuleIndicatio ns:Atrial fibrillation and flutter (HC) Take 1 Capsule (120 mg) by mouth once daily. 90 Capsule 3 5 Active rivaroxaban (Xarelto) 20 mg tabletIndication s:Atrial fibrillation and flutter (HC) Take 1 Tablet (20 mg) by mouth once daily with evening meal. 90 Tablet 3 5 Active Active Problems Patient Care Coordination [...] Encounters Date Type Department Care Team Description 05/15/2025 Telephone [facility] [address] [place] [address] Alida Sousa NP Concerns 04/30/2025 Orders Only [facility] [address] [place] [address] Allen Gonzalez MD Lab 03/15/2025 1:40 PM CDT Office Visit [facility] [address] [place] [address] Allen Gonzalez MD Medication Management (Discuss medication and leg swelling) 03/14/2025 Travel from Last 3 Months Immunizations Immunization Administration Dates Next Due COVID-19 vaccine (Pfizer-Bio NTech 30mcg/0.3mL) 12YO+ [facility]-[employer] [facility]SE [facility]ACE 09/30/2021 COVID-19 vaccine ([employer] NTBuffer 30mcg/0.3mL) PF, MDV 09/06/2020,08/16/2020 Influenza A (H1N1), [...] isolated from those around you? 0 07/01/2024 Alcohol Use Answer Date Recorded How often do you have a drink containing alcohol ? 4 03/15/2025 How many drinks containing a lcohol do you have on a typical day when you are drinking? 0 03/15/2025 How often do you have five or more drinks on one occasion? 0 03/15/2025 Financial Resource Strain Answer Date R ecorded [...] on file Legal Sex Male 5:26 AM [employer] Gender Identity Not on file Sexual Orientation Not on file Obstetrics History Last Filed Vital Signs Vital Sign Reading Time Taken Comments Blood Pressure 125/69 03/15/2025 1:43 PM CDT Pulse 59 03/15/2025 1:43 PM CDT Temperature 37.1 C (98.8 F) 09/26/2024 7:51 AM CDT Respiratory Rate 18 09/26/2024 7:51 AM CDT Oxygen Saturation 96% 03/15/2025 1:43 PM CDT Inhaled Oxygen Concentration - - Weight 102.4 kg (225 lb 12.8 oz) 03/15/2025 1:43 PM CDT Height 178.5 cm (5' 10.28) 01/07/2025 3:14 PM C DT Body Mass Index 32.14 01/07/2025 3:14 PM CDT Plan of Treatment Upcoming Encounters Date Type Department Care Team (Late st Contact Info) Description 08/07/2025 3:00 PM [employer] Office Visit [facility] [address] [place] [address] [place] [address] Alida Sousa, SIN [address] [place] [address] Health Maintenance Due Date Last Done Comments Medicare Wellness for age 65+ 2010 Depression screening for age 12+ 07/13/2022 07/13/2021, 06/25/2019, 06/22/2019, Additional history exists COVID-19 vaccine series ( season) 2025 01/13/2024, 03/28/2023, 04/06/2022, Additional history exists Influenza Vaccine (#1) 2025 , 03/28/2020, 03/14/2019, Additional history exists BMI (ht and wt on same day) for age 18+ 01/07/2026 01/07/2025, 10/16/2024, 08/15/2024, Additional history exists Tetanus booster 08/28/2027 08/27/2017, 12/30/2009 Pneumococcal series for age 50+ Completed 07/07/2018, 06/02/2016 Hepatitis C screening for age 18-79 Completed 07/08/2021 Zoster (shingles) series for age 50+ Completed 06/07/2022, 03/18/2022, 06/27/2013 RSV vaccine for adults or Completed 03/28/2023 Hepatitis B series for 19+ Aged Out N o longer eligible based on patient's age to complete this topic Procedures Procedure Name Priority Date/Time Associated Diagnosis Comments OCCULT BLOOD IFOBT STOOL Routine 04/27/2025 12:00 PM CDT Screening for colon cancer ANTI HCV Routine 07/08/2021 9:52 AM [employer] Need for hepatitis C screening test from Last 3 Months or Most Recently Relevant to Health Maintenance Results * OCCULT BLOOD IFOBT STOOL (04/27/2025 12:00 PM CDT) STOOL BLOOD ,IFOBT Negative Negative 05/06/2025 3:32 PM [employer]ER [facility] Stool STOOL SPECIMEN / Unknown Non-Blood / Unknown 04/27/2025 12:00 PM CDT 05/03/2025 9:42 PM [employer] us Allen Gonzalez MD LABORATORY Final Result [facility] [address] [place] [address], * ANTI HCV (07/08/2021 9:52 AM [employer]ER) HEPATITIS C ANTIBODY Non-React asiya Non-React asiya 07/08/2021 6:37 PM [employer] [facility] Comment:Antibodies to HCV no t detected; does not exclude the possibility of exposure to HCV. Blood BLOOD SPECIMEN / Unknown Venipuncture / Unknown 07/08/2021 9:52 AM [employer] AS[employer]ER 07/08/2021 9:52 AM [employer] us Allen Gonzalez MD SEND OUTS Final Result Performing Organization Address City/[facility]/ZIP Co de Phone Number [facility] [address] [place] [address], from Last 3 Months or Most Recently Relevant to Health Maintenance Insurance [email or web address] MR PB ONLY MEDICARE PART B HB ONLY [...] 8:32 AM 03/17/2019 3:00 PM Care Teams Tape Recording Machine Operator Relationship Specialty Start Date End Date Allen Gonzalez MD [address] [place] [address] PCP - General 10/05/05 Allen Winslow MD [address] [place] [address] Cardiology Cardiovascular Disease 12/02/09
--- NOTE | 2025-05-21 19:57 | ED.ARRPALP ---
HPI - Arrhythmia/Palpitations General Chief Complaint: Arrhythmia/Palpitations Stated Complaint: afib Time Seen by Provider: 05/21/25 19:17 History of Present Illness HPI narrative: This 79-year-old male comes in reporting palpitations that began this morning. He has had symptoms like this in the past and has had an ablation and cardioversion for atrial fibrillation. He is currently taking Xarelto. He also is currently taking Coreg and diltiazem. He took extra Coreg today and also took a flecainide but comes in now stating that he still feels his heart palpitating. He does not report any chest pain, nausea, vomiting, lightheadedness, or shortness of breath. He has not had any diaphoresis. Related Data Home Medications ?Medication ?Instructions ?Recorded ?Confirmed cholecalciferol (vitamin D3) 50 2,000 unit PO DAILY 01/05/22 01/15/25 mcg (2,000 unit) capsule (Vitamin D3) cpap 01/05/22 01/15/25 doxazosin 8 mg tablet 8 mg PO HS 01/05/22 01/15/25 hydrochlorothiazide 25 mg tablet 25 mg PO DAILY 01/05/22 01/15/25 multivitamin (Multiple Vitamins 1 tab PO DAILY 01/05/22 01/15/25 tablet) omega-3 fatty acids 500 mg capsule 500 mg PO DAILY 01/05/22 01/15/25 rosuvastatin 20 mg tablet (Crestor) 20 mg PO HS 01/05/22 01/15/25 saw palmetto 450 mg capsule 450 mg PO DAILY 01/05/22 01/15/25 turmeric 400 mg capsule 400 mg PO QDAY 01/05/22 01/15/25 vitamin A-vitamin C-vit E-min 1 tab PO DAILY 01/05/22 01/15/25 tablet amoxicillin 500 mg capsule 2,000 mg PO ONCE 01/06/22 01/15/25 diltiazem HCl 120 mg 120 mg PO DAILY 01/06/22 01/15/25 capsule,extended release 24 hr flecainide 50 mg tablet 50 mg PO Q12H 01/06/22 01/15/25 glucosamine-chondroitin 500 mg-400 1 tab PO DAILY 04/12/22 01/15/25 mg tablet (Cosamin DS) rivaroxaban 20 mg tablet (Xarelto) 20 mg PO QPM 07/13/22 01/15/25 loteprednol etabonate 0.5 % eye drp ophthalmic (eye) 04/17/24 01/15/25 drops,suspension Previous Rx's ?Medication ?Instructions ?Recorded carvedilol 3.125 mg tablet (Coreg) 3.125 mg PO BID #60 tabs 08/13/24 furosemide 20 mg tablet (Lasix) 20 mg PO DAILY #5 tabs 11/08/24 meloxicam 15 mg tablet 15 mg PO QDAY #90 tabs 12/03/24 metoprolol tartrate 25 mg tablet 25 mg PO BID PRN #60 tabs 05/21/25 Allergies Allergy/AdvReac Type Severity Reaction Status Date / Time dabigatran etexilate (From Allergy felt Verified 01/15/25 08:26 Pradaxa) poorly. ok on xarelto Review of Systems Status of ROS: Reports: 10 or more systems reviewed and unremarkable except as noted in History and below Narrative: Constitutional: No fevers, no weight gain or loss. Eyes: No discharge. No vision changes. HENT: No congestion, no sore throat, no ear pain. Cardiovascular: No chest pain. Palpitations as described above. Respiratory: No shortness of breath, no wheezes, no cough. Gastrointestinal: No abdominal pain, no vomiting, no diarrhea. Genitourinary: No dysuria, no hematuria. Musculoskeletal: Normal range of motion. Skin: No rashes, no pruritis. Neurological: No dizziness, weakness, sensory change, speech change. Endo/Heme/Allergies: No bruising or bleeding. No polydipsia. Pysch: no suicidality, no anxiety, no insomnia. All other systems reviewed and are negative. [facility] History Rupture of left biceps tendon ?S46.212A - Strain of muscle, fascia and tendon of other parts of biceps, left arm, initial encounter (ICD-10) Plantar fasciitis, right ?M72.2 - Plantar fascial fibromatosis (ICD-10) Sprain of right hand ?S63.91XA - Sprain of unspecified part of right wrist and hand, initial encounter (ICD-10) Biceps tendon tear ?S46.219A - Strain of muscle, fascia and tendon of other parts of biceps, unspecified arm, initial encounter (ICD-10) Strain of left biceps ?S46.212A - Strain of muscle, fascia and tendon of other parts of biceps, left arm, initial encounter (ICD-10) Chronic anticoagulation ?Z79.01 - alf (current) use of anticoagulants (ICD-10) Heart failure due to valvular disease ?I50.9 - Heart failure, unspecified (ICD-10) ?I38 - Endocarditis, valve unspecified (ICD-10) Chronic kidney disease ?N18.9 - Chronic kidney disease, unspecified (ICD-10) Tear of medial meniscus of right knee ?S83.241A - Other tear of medial meniscus, current injury, right knee, initial encounter (ICD-10) Osteoarthritis of right knee ?M17.11 - Unilateral primary osteoarthritis, right knee (ICD-10) Tachycardia ?R00.0 - Tachycardia, unspecified (ICD-10) PAC (premature atrial contraction) ?I49.1 - Atrial premature depolarization (ICD-10) GERD (gastroesophageal reflux disease) ?K21.9 - Gastro-esophageal reflux disease without esophagitis (ICD-10) Sleep apnea ?G47.30 - Sleep apnea, unspecified (ICD-10) Hypertension ?I10 - Essential (primary) hypertension (ICD-10) Irregular heart beat ?I49.9 - Cardiac arrhythmia, unspecified (ICD-10) Hyperlipidemia ?E78.5 - Hyperlipidemia, unspecified (ICD-10) Cardiac arrhythmia ?I49.9 - Cardiac arrhythmia, unspecified (ICD-10) Tinnitus ?H93.19 - Tinnitus, unspecified ear (ICD-10) Surgical History History of arthroscopy of left shoulder (10/22/24) ?Z98.890 - Other specified postprocedural states (ICD-10) History of arthroplasty of right knee (05/09/23) ?Z96.651 - Presence of right artificial knee joint (ICD-10) Hx of left cataract extraction (11/17/22) ?Z98.42 - Cataract extraction status, left eye (ICD-10) History of right cataract surgery (11/03/22) ?Z98.41 - Cataract extraction status, right eye (ICD-10) Hx of atrioventricular megan ablation ?Z98.890 - Other specified postprocedural states (ICD-10) Hx of hemorrhoidectomy ?Z98.890 - Other specified postprocedural states (ICD-10) Hx of hernia repair ?Z98.890 - Other specified postprocedural states (ICD-10) ?Z87.19 - Personal history of other diseases of the digestive system (ICD-10) H/O arthroscopy of shoulder (04/14/22) ?Z98.890 - Other specified postprocedural states (ICD-10) H/O heart artery stent (09/13/08) ?Z95.5 - Presence of coronary angioplasty implant and graft (ICD-10) Family History Father Throat cancer Mother Heart problem Social History Narrative: , retired, former smoker (quit 1975) He lives with his [facility]. He lives in a two-story house with the bedroom and bathroom upstairs. Main living area, kitchen and bathroom downstairs. What is your current living situation?: I presently have a place to live In the past 12 months, utilities in danger of being shut off: no In past 12 months, lack of transportation kept you from medical appts, meetings, work, or getting things needed for daily living: no In the past 12 mos, have been you worried that your food would run out before you had money to buy more?: never true In the past 12 mos, the food you bought just didn't last and you didn't have money to buy more?: never true Smoking Status: Former smoker Do you use any of these nicotine containing products: None Second hand tobacco smoke exposure: No How often do you have a drink containing alcohol: monthly or less Alcohol type: beer How many standard drinks containing alcohol do you have on a typical day: 1 or 2 How often do you have six or more drinks on one occasion: Less than monthly AUDIT-C Alcohol total score: 2 Non-prescribed substance use: denies use Caffeine: Yes Are you now , , , , never or living with a partner: Social isolation score (0-1 are the most socially isolated patients): 1 How often does anyone, including family, friends and others, physically hurt you: never How often does anyone, including family, friends and others, insult or talk down to you: never How often does anyone, including family, friends and others, threaten you with harm: never How often does anyone, including family, friends and others, scream or curse at you: never service: No Exam Narrative: Exam Narrative: Constitutional: Well-developed, well-nourished, no acute distress. HEENT: Normocephalic, atraumatic. Neck: Normal range of motion. Nontender. Supple. Heart: Irregular in a pattern of bigeminy. No murmurs. Borderline tachycardia. Intact distal pulses. Lungs: Clear to auscultation. No chest discomfort. No wheezes, rhonchi, or rales. Abdomen: Normal bowel sounds. Nontender. No rebound tenderness. Genitalia: Deferred. Back: No midline tenderness. Normal range of motion. Extremities: Normal range of motion. No injury. Bilateral pedal edema. Skin: Intact. No rash. Warm. No erythema or pallor. Neurologic: No altered sensation. No weakness. Alert and oriented. Psychiatric: No suicidality. No anxiety or depression. No insomnia. Nursing notes and vitals signs are reviewed. Const: Vital Signs, click to edit/add: Vital Signs - 24 hr 05/21/25 19:12 05/21/25 19:39 05/21/25 19:40 Pulse Rate 106 H 109 H Pulse Rate [Pulse Oximeter] 128 H Respiratory Rate 20 12 Blood Pressure 148/81 H Blood Pressure [Ri ght Upper Arm] 118/77 Pulse Oximetry 93 97 97 Oxygen Delivery Me thod Room Air 05/21/25 19:45 05/21/25 20:03 05/21/25 20:04 Pulse Rate 122 H Pulse Rate [Pulse Oximeter] Respiratory Rate 23 Blood Pressure 149/95 H Blood Pressure [Ri ght Upper Arm] Pulse Oximetry 98 Oxygen Delivery Me thod 05/21/25 20:15 Pulse Rate 105 H Pulse Rate [Pulse Oximeter] Respiratory Rate 16 Blood Pressure Blood Pressure [Ri ght Upper Arm] Pulse Oximetry 97 Oxygen Delivery Me thod Course Vital Signs Vital signs: Initial Vital Signs Pulse Rate 128 H 05/21/25 19:12 Respiratory Rate 20 05/21/25 19:12 Blood Pressure 118/77 05/21/25 19:12 Blood Pressure Mean 90 05/21/25 19:12 Blood Pressure Position Sitting 05/21/25 19:12 Pulse Oximetry 93 05/21/25 19:12 Oxygen Delivery Method Room Air 05/21/25 19:12 Vital Signs Pulse Rate 128 H 05/21/25 19:12 Respiratory Rate 20 05/21/25 19:12 Blood Pressure 118/77 05/21/25 19:12 Pulse Oximetry 93 05/21/25 19:12 Oxygen Delivery Method Room Air 05/21/25 19:12 Pulse Rate 105 H 05/21/25 20:15 Respiratory Rate 16 05/21/25 20:15 Blood Pressure 149/95 H 05/21/25 20:03 Pulse Oximetry 97 05/21/25 20:15 Oxygen Delivery Method Room Air 05/21/25 19:12 Medications Administered Medications: Generic Name Dose Route Start Last Admin Trade Name Freq PRN Reason Stop Dose Admin Sodium Chloride 500 mls @ 500 mls/hr 05/21/25 19:55 05/21/25 20:31 0.9 % Sodium Chloride 500 Ml IV 05/21/25 20:54 Infused .Q1H ONE Infusion Discontinued Medications Generic Name Dose Route Start Last Admin Trade Name Freq PRN Reason Stop Dose Admin Metoprolol Tartrate 25 mg 05/21/25 19:55 05/21/25 20:11 Metoprolol Tartrate 25 Mg Tablet PO 05/21/25 19:56 25 mg ONCE ONE Administration MDM - Arrhythmia/Palpitations MDM Narrative Medical decision making narrative: This 79-year-old male comes in reporting palpitations and stating that he does not feel right. He denies chest pain or other symptoms and arrives with normal vital signs. His heart rate is hanging around 100 beats per minute any states that he did take extra Coreg today along with a dose of flecainide. EKG shows a sinus rhythm with frequent PACs. As I look more closely at the EKG and it is rhythm strip it looks to be in a pattern of bigeminy. An IV was established where the patient did receive 500 mL of normal saline. He also received an oral dose of metoprolol 25 mg. Labs are acquired and these returned with normal results. The patient states that he is feeling much better with these treatments. He continues to have some PACs but no longer in a pattern of bigeminy. He is okay to be discharged home. I did provide a prescription for metoprolol tartrate 25 mg that can be used as needed. Lab Data Labs: Lab Results 05/21/25 05/21/25 Range/Units 19:40 19:56 WBC 5.85 (4.50-11.00) K/uL RBC 4.08 L (4.30-5.90) m/uL Hgb 12.7 L (13.5-17.5) gm/dL Hct 37.8 (37.0-53.0) % MCV 93 (80-100) fL MCH 31 (26-34) pg MCHC 34 (32-36) gm/dL RDW Coeff of [place] 11.9 (11.5-15.5) % Plt Count 193 (140-440) K/uL Neut % (Auto) 62.7 (42.0-72.0) % Lymph % (Auto) 22.6 (20-44) % Young % (Auto) 8.9 (0.0-11.0) % Eos % (Auto) 4.6 (0.0-7.0) % Baso % (Auto) 1.2 (0.0-3.0) % Neut # (Auto) 3.67 (1.7-7.0) K/uL Lymph # (Auto) 1.32 (0.90-2.90) K/uL Young # (Auto) 0.50 (0.00-0.90) K/UL Eos # (Auto) 0.27 (0.00-0.50) K/uL Baso # (Auto) 0.07 (0.00-0.30) K/uL Abs Immat Gran (auto) 0.00 (0.00-0.30) K/uL Imm/Tot Granulo (auto) 0.0 % Sodium 139 (135-149) mmol/L Potassium 4.2 (3.6-5.1) mmol/L Chloride 102 (96-114) mmol/L Carbon Dioxide 26 (20-32) mmol/L Anion Gap 11 (7-15) mEq/L BUN 31 H (7-30) mg/dL Creatinine 1.4 (0.5-1.5) mg/dL Estimated Creat Clear 44.18 Estimated GFR 51 ml/min Glucose 103 (60-115) mg/dL Calcium 9.4 (8.4-10.6) mg/dL Magnesium 1.9 (1.5-2.6) mg/dL POC Troponin I High Sensi 12.4 (2.9-28.0) ng/L ECG Data Attestation: I personally reviewed and interpreted this ECG as follows: Interpretation: Sinus tachycardia in a pattern of bigeminy with first-degree AV block. Rate is 105 beats per minute. There are no ST or T-wave abnormalities. Discharge Plan Discharge Clinical Impression: Palpitations Patient Disposition: Home, Self-Care Condition: Improved Additional Instructions: Continue current plans. Okay to take metoprolol in addition to current medications as needed and directed if palpitations recur. Follow up with MD return if worsening. Prescriptions: New metoprolol tartrate 25 mg tablet 25 mg PO BID PRNQty: 60 2RF No Action (DME) cpap 0 .Route .MEDSUPPLY multivitamin [Multiple Vitamins] Tablet 1 tab PO DAILY saw palmetto 450 mg capsule 450 mg PO DAILY Rx Instructions: give with food (meal/snack) turmeric 400 mg capsule 400 mg PO QDAY omega-3 fatty acids 500 mg capsule 500 mg PO DAILY vitamin A-vitamin C-vit E-min Tablet 1 tab PO DAILY cholecalciferol (vitamin D3) [Vitamin D3] 50 mcg (2,000 unit) capsule 2,000 unit PO DAILY doxazosin 8 mg tablet 8 mg PO HS hydrochlorothiazide 25 mg tablet 25 mg PO DAILY rosuvastatin [Crestor] 20 mg tablet 20 mg PO HS diltiazem HCl 120 mg capsule,extended release 24hr 120 mg PO DAILY flecainide 50 mg tablet 50 mg PO Q12H amoxicillin 500 mg capsule 2,000 mg PO ONCE Patient Comments: TAKE 4 CAPSULES BY MOUTH 1 HOUR BEFORE PROCEDURE Xarelto 20 mg tablet 20 mg PO QPM loteprednol etabonate 0.5 % drops,suspension ophthalmic (eye) glucosamine-chondroitin [Cosamin DS] 500-400 mg tablet 1 tab PO DAILY furosemide [Lasix] 20 mg tablet 20 mg PO DAILY Qty: 5 0RF carvedilol [Coreg] 3.125 mg tablet 3.125 mg PO BID Qty: 60 2RF Rx Instructions: must administer with a meal/food meloxicam 15 mg tablet 15 mg PO QDAY Qty: 90 3RF Follow Up/Referrals: Allen Gonzalez MD [Primary Care Provider, Family Practice] Stand Alone Forms: [employer] Info Instructions
[2025-05-21] MEDS: 0.9 % SODIUM CHLORIDE 500 ML 500 ML IV (20:08)
[2025-05-21] MEDS: METOPROLOL TARTRATE 25 MG TABLET PO (20:11)
[2025-05-21 20:20] LABS: Chloride* 102 mmol/L (96-114)
[2025-05-21 20:21] LABS: Potassium* 4.2 mmol/L (3.6-5.1); Sodium* 139 mmol/L (135-149)
[2025-05-21 20:23] LABS: Blood Urea Nitrogen* 31 mg/dL (7-30); Creatinine* 1.4 mg/dL (0.5-1.5); Est. Creatinine Clearance* 44.18; Estimated Glomerular Filt Rate 51 ml/min
[2025-05-21 20:24] LABS: Anion Gap 11 mEq/L (7-15); Calcium* 9.4 mg/dL (8.4-10.6); Carbon Dioxide* 26 mmol/L (20-32); Glucose* 103 mg/dL (60-115)
[2025-05-21 20:25] LABS: Hematocrit* 37.8 % (37.0-53.0); Hemoglobin* 12.7 gm/dL (13.5-17.5); Immature Granulocytes Abs Auto 0.00 K/uL (0.00-0.30); Immature Granulocytes Pct Auto 0.0 %; Lymphocytes Absolute Auto 1.32 K/uL (0.90-2.90); Mean Corpuscular HGB Conc 34 gm/dL (32-36); Mean Corpuscular Hemoglobin 31 pg (26-34); Mean Corpuscular Volume 93 fL (80-100); RDW Coefficient of Variation % 11.9 % (11.5-15.5); Red Blood Count* 4.08 m/uL (4.30-5.90); White Blood Count* 5.85 K/uL (4.50-11.00)
[2025-05-21 20:26] LABS: Slide Review Reflex No
== END 2025-05-21 21:37 | disposition home or self-care (01) ==
PROVIDERS: Emergency Provider Emergency Medicine Emergency Medical Services; PCP Family Medicine
DX: R00.0 Tachycardia, unspecified (principal)
CPT/HCPCS: 36415; 80048; 83735; 84484; 85025; 93005; 96360; 99284; A9270; J7030

== ENCOUNTER 2025-05-24 09:52 | Emergency (ER) | payer MEDICARE, OTHER, SELFPAY ==
[2025-05-24] VITALS (10 sets, daily range): BP systolic 159; BP diastolic 95; PULSE 77–116; RESP 7–29; TEMP 36.2; O2SAT 95–100; BMI 30.6
--- OUTSIDE RECORDS SUMMARY | 2025-05-24 09:55 | XMS_ITS | Clinical Summary ---
Author Organization [facility] Address [address] [place] [address] Care Team Providers Care Permanent Mold Supervisor Name Role Phone Allen Gonzalez MD Primary Care Provider Allen Winslow MD Unavailable [phone] Allergies Active Allergy Reactions Criticality Noted Date Comments Atenolol Other - Describe In Comment Field 10/16/2024 Fatigue, shortness of breath. Carvedilol Other - Describe In Comment Field 10/16/2024 [place] terrible, fatigue. Lisinopril Cough Low 06/25/2008 Losartan Other - Describe In Comment Field 05/11/2012 Exercise intolerance. Dabigatran Etexilate Other - Describe In Comment Field 07/07/2022 [place] poorly. Ok on Xarelto. Medications cholecalciferol (VITAMIN [...] evening meal. 90 Tablet 3 5 Active carvediloL (COREG) 3.125 mg tabletIndication s:Atrial fibrillation and flutter (HC) Take 1 Tablet (3.125 mg) by mouth once daily. Daily in the evening. 90 Tablet 5 Active Active Problems Patient Care Coordination [...] Encounters Date Type Department Care Team Description 05/22/2025 Telephone [facility] [address] [place] [phone] Jordy Dockery MD Medication Management 05/15/2025 Telephone [facility] [address] [place] [phone] Alida Sousa NP Concerns 04/30/2025 Orders Only [facility] [address] [place] [address] Allen Gonzalez MD Lab 03/15/2025 1:40 PM CDT Office Visit [facility] [address] [place] [address] Allen Gonzalez MD Medication Management (Discuss medication [...] on file Legal Sex Male 5:26 AM CYLINDER DYER Gender Identity Not on file Sexual Orientation [...] st Contact Info) Description 08/07/2025 3:00 PM CYLINDER DYER Office Visit [address] [place] [address] Alida Sousa NP [address] [place], [place] [id number] Health Maintenance Due Date Last Done Comments Medicare Wellness for age 65+ 2010 Depression screening for age 12+ 07/13/2022 07/13/2021, 06/25/2019, 06/22/2019, Additional history exists COVID-19 vaccine series (2024- season) 2025 01/13/2024, 03/28/2023, 04/06/2022, Additional history [...] cancer ANTI HCV Routine 07/08/2021 9:52 AM CYLINDER DYER Need for hepatitis C screening test from Last 3 Months or Most Recently Relevant to Health Maintenance Results * OCCULT BLOOD IFOBT STOOL (04/27/2025 12:00 PM CDT) STOOL BLOOD ,IFOBT Negative Negative 05/06/2025 3:32 PM CYLINDER DYER [facility] Stool STOOL SPECIMEN / Unknown Non-Blood / Unknown 04/27/2025 12:00 PM CDT 05/03/2025 9:42 PM CYLINDER DYER us Allen Gonzalez MD LABORATORY Final Result Performing Organization Address City/[facility]/ZIP Co de Phone Number [facility] [address] [place] [address], * ANTI HCV (07/08/2021 9:52 AM CYLINDER DYER) HEPATITIS C ANTIBODY Non-React asiya Non-React asiya 07/08/2021 6:37 PM CYLINDER DYER [facility] Comment:Antibodies to HCV no t detected; does not exclude the possibility of exposure to HCV. Blood BLOOD SPECIMEN / Unknown Venipuncture / Unknown 07/08/2021 9:52 AM CYLINDER DYER 07/08/2021 9:52 AM CYLINDER DYER us Allen Gonzalez MD SEND OUTS Final Result [facility] [employer] [facility] [address] [place] [address], from Last 3 Months or Most Recently Relevant to Health Maintenance Insurance [employer] MR PB ONLY MEDICARE PART B HB [...] 8:32 AM 03/17/2019 3:00 PM Care Teams Permanent Mold Supervisor Relationship Specialty Start Date End Date Allen Gonzalez MD [address] [place] [address] PCP - General 10/05/05 Allen Winslow MD [address] [place] [address] Cardiology Cardiovascular Disease 12/02/09
--- NOTE | 2025-05-24 11:27 | ED.ARRPALP ---
HPI - Arrhythmia/Palpitations General Time Seen by Provider: 11:27 Date Seen: 05/24/25 Chief Complaint: Arrhythmia/Palpitations Stated Complaint: Cardiac Distress Time Seen by Provider: 05/24/25 11:04 Source: patient, RN notes reviewed and old records reviewed Mode of arrival: ambulatory Limitations: no limitations History of Present Illness HPI narrative: This 79-year-old male is coming to the ER, had his drive him because he was not feeling good and felt dizzy, some shortness of breath, having ?tachy arrhythmia?. This started about 2 hours prior to presentation, he did take an extra dose of carvedilol and did take a dose of flecainide at home without initial improvement. He states his heart rate was about 120 when he got here, due to the volume in the acuity of the ER, he was not seen and tell I came in as a 2nd provider for scheduled shift in the ER, EKG had not been done. He was placed on pulse oximetry and patient monitor on arrival, when I see him he is back into the 70s, appears to be in a sinus rhythm. He is chronically anticoagulated with Xarelto. He states he has not missed any doses. He is not been sick with anything, no cough or cold symptoms, no fevers or chills. When his heart rate was fast earlier, he did have some associated shortness of breath and dizziness. He just does not feel well, nothing specific. There was no chest pain, no associated abdominal symptoms. He has had no nausea vomiting or diarrhea, no abdominal pain. Does have a history of sleep apnea with CPAP use, hypertension, chronic kidney disease, congestive heart failure and atrial flutter with ablation. He was just seen in our ER on May 21 with palpitations, was found to be in a bigeminal rhythm with premature atrial contractions. He got some IV fluid and 25 mg metoprolol, had taken an extra Coreg and flecainide prior to coming in. He felt better and had resolution of his symptoms. Patient was already wearing a Zio patch when he was seen May 21, still has this on. He was here in October, had some palpitations but was actually found to be in congestive heart failure with out active arrhythmia at that time, was given Lasix. Do see patient is status post TAVR. complaint: rapid heart beat and palpitations Related Data Home Medications ?Medication ?Instructions ?Recorded ?Confirmed cholecalciferol (vitamin D3) 50 2,000 unit PO DAILY 01/05/22 01/15/25 mcg (2,000 unit) capsule (Vitamin D3) cpap 01/05/22 01/15/25 doxazosin 8 mg tablet 8 mg PO HS 01/05/22 01/15/25 hydrochlorothiazide 25 mg tablet 25 mg PO DAILY 01/05/22 01/15/25 multivitamin (Multiple Vitamins 1 tab PO DAILY 01/05/22 01/15/25 tablet) omega-3 fatty acids 500 mg capsule 500 mg PO DAILY 01/05/22 01/15/25 rosuvastatin 20 mg tablet (Crestor) 20 mg PO HS 01/05/22 01/15/25 saw palmetto 450 mg capsule 450 mg PO DAILY 01/05/22 01/15/25 turmeric 400 mg capsule 400 mg PO QDAY 01/05/22 01/15/25 vitamin A-vitamin C-vit E-min 1 tab PO DAILY 01/05/22 01/15/25 tablet amoxicillin 500 mg capsule 2,000 mg PO ONCE 01/06/22 01/15/25 diltiazem HCl 120 mg 120 mg PO DAILY 01/06/22 01/15/25 capsule,extended release 24 hr flecainide 50 mg tablet 50 mg PO Q12H 01/06/22 01/15/25 glucosamine-chondroitin 500 mg-400 1 tab PO DAILY 04/12/22 01/15/25 mg tablet (Cosamin DS) rivaroxaban 20 mg tablet (Xarelto) 20 mg PO QPM 07/13/22 01/15/25 loteprednol etabonate 0.5 % eye drp ophthalmic (eye) 04/17/24 01/15/25 drops,suspension Previous Rx's ?Medication ?Instructions ?Recorded carvedilol 3.125 mg tablet (Coreg) 3.125 mg PO BID #60 tabs 08/13/24 furosemide 20 mg tablet (Lasix) 20 mg PO DAILY #5 tabs 11/08/24 meloxicam 15 mg tablet 15 mg PO QDAY #90 tabs 12/03/24 metoprolol tartrate 25 mg tablet 25 mg PO BID PRN #60 tabs 05/21/25 metoprolol tartrate 25 mg tablet 25 mg PO BID #20 tabs 05/22/25 carvedilol 3.125 mg tablet 3.125 mg PO BID #60 tabs 05/24/25 Allergies Allergy/AdvReac Type Severity Reaction Status Date / Time dabigatran etexilate (From Allergy felt Verified 01/15/25 08:26 Pradaxa) poorly. ok on xarelto Review of Systems Status of ROS: Reports: 6 or more systems reviewed and unremarkable except as noted in History and below [facility] Medical History Rupture of left biceps tendon ?S46.212A - Strain of muscle, fascia and tendon of other parts of biceps, left arm, initial encounter (ICD-10) Plantar fasciitis, right ?M72.2 - Plantar fascial fibromatosis (ICD-10) Sprain of right hand ?S63.91XA - Sprain of unspecified part of right wrist and hand, initial encounter (ICD-10) Biceps tendon tear ?S46.219A - Strain of muscle, fascia and tendon of other parts of biceps, unspecified arm, initial encounter (ICD-10) Strain of left biceps ?S46.212A - Strain of muscle, fascia and tendon of other parts of biceps, left arm, initial encounter (ICD-10) Chronic anticoagulation ?Z79.01 - ferry terminal agent (current) use of anticoagulants (ICD-10) Heart failure due to valvular disease ?I50.9 - Heart failure, unspecified (ICD-10) ?I38 - Endocarditis, valve unspecified (ICD-10) Chronic kidney disease ?N18.9 - Chronic kidney disease, unspecified (ICD-10) Tear of medial meniscus of right knee ?S83.241A - Other tear of medial meniscus, current injury, right knee, initial encounter (ICD-10) Osteoarthritis of right knee ?M17.11 - Unilateral primary osteoarthritis, right knee (ICD-10) Tachycardia ?R00.0 - Tachycardia, unspecified (ICD-10) PAC (premature atrial contraction) ?I49.1 - Atrial premature depolarization (ICD-10) GERD (gastroesophageal reflux disease) ?K21.9 - Gastro-esophageal reflux disease without esophagitis (ICD-10) Sleep apnea ?G47.30 - Sleep apnea, unspecified (ICD-10) Hypertension ?I10 - Essential (primary) hypertension (ICD-10) Irregular heart beat ?I49.9 - Cardiac arrhythmia, unspecified (ICD-10) Hyperlipidemia ?E78.5 - Hyperlipidemia, unspecified (ICD-10) Cardiac arrhythmia ?I49.9 - Cardiac arrhythmia, unspecified (ICD-10) Tinnitus ?H93.19 - Tinnitus, unspecified ear (ICD-10) Surgical History History of arthroscopy of left shoulder (10/22/24) ?Z98.890 - Other specified postprocedural states (ICD-10) History of arthroplasty of right knee (05/09/23) ?Z96.651 - Presence of right artificial knee joint (ICD-10) Hx of left cataract extraction (11/17/22) ?Z98.42 - Cataract extraction status, left eye (ICD-10) History of right cataract surgery (11/03/22) ?Z98.41 - Cataract extraction status, right eye (ICD-10) Hx of atrioventricular megan ablation ?Z98.890 - Other specified postprocedural states (ICD-10) Hx of hemorrhoidectomy ?Z98.890 - Other specified postprocedural states (ICD-10) Hx of hernia repair ?Z98.890 - Other specified postprocedural states (ICD-10) ?Z87.19 - Personal history of other diseases of the digestive system (ICD-10) H/O arthroscopy of shoulder (04/14/22) ?Z98.890 - Other specified postprocedural states (ICD-10) H/O heart artery stent (09/13/08) ?Z95.5 - Presence of coronary angioplasty implant and graft (ICD-10) Family History Father Throat cancer Mother Heart problem Social History Narrative: , retired, former smoker (quit 1975) He lives with his [facility]. He lives in a two-story house with the bedroom and bathroom upstairs. Main living area, kitchen and bathroom downstairs. What is your current living situation?: I presently have a place to live In the past 12 months, utilities in danger of being shut off: no In past 12 months, lack of transportation kept you from medical appts, meetings, work, or getting things needed for daily living: no In the past 12 mos, have been you worried that your food would run out before you had money to buy more?: never true In the past 12 mos, the food you bought just didn't last and you didn't have money to buy more?: never true Smoking Status: Former smoker Do you use any of these nicotine containing products: None Second hand tobacco smoke exposure: No How often do you have a drink containing alcohol: monthly or less Alcohol type: beer How many standard drinks containing alcohol do you have on a typical day: 1 or 2 How often do you have six or more drinks on one occasion: Less than monthly AUDIT-C Alcohol total score: 2 Non-prescribed substance use: denies use Caffeine: Yes Are you now , , , , never or living with a partner: Social isolation score (0-1 are the most socially isolated patients): 1 How often does anyone, including family, friends and others, physically hurt you: never How often does anyone, including family, friends and others, insult or talk down to you: never How often does anyone, including family, friends and others, threaten you with harm: never How often does anyone, including family, friends and others, scream or curse at you: never service: No Exam Const: Vital Signs, click to edit/add: Vital Signs - 24 hr 05/24/25 10:04 05/24/25 11:36 05/24/25 11:46 Temperature 97.2 F L Pulse Rate 78 Pulse Rate [Pulse Oximeter] 116 H Respiratory Rate 24 7 L Blood Pressure [Ri ght Upper Arm] 159/95 H Pulse Oximetry 99 98 100 Oxygen Delivery Me thod Room Air 05/24/25 12:48 05/24/25 13:00 05/24/25 13:17 Temperature Pulse Rate 83 94 Pulse Rate [Pulse Oximeter] Respiratory Rate 29 H 15 21 Blood Pressure [Ri ght Upper Arm] Pulse Oximetry 98 95 Oxygen Delivery Me thod 05/24/25 13:30 05/24/25 13:45 05/24/25 14:00 Temperature Pulse Rate 81 77 79 Pulse Rate [Pulse Oximeter] Respiratory Rate 29 H 7 L 12 Blood Pressure [Ri ght Upper Arm] Pulse Oximetry 99 98 99 Oxygen Delivery Me thod 05/24/25 14:15 Temperature Pulse Rate Pulse Rate [Pulse Oximeter] Respiratory Rate 19 Blood Pressure [Ri ght Upper Arm] Pulse Oximetry Oxygen Delivery Me thod This 79-year-old male is alert, interactive, no apparent distress, lying in his bed in exam room 8. Sclera clear, extraocular muscles intact, pupils normal. Symmetrical facial function, speech normal. Neck supple, no jugular venous distension, no masses, no thyromegaly masses or nodules. Lungs are clear, no wheezing or crackles, no tachypnea, accessory soft, nontender, nondistended, no organomegaly, rebound or guarding. He has no pretibial edema. He does note when I do examination that he will sometimes get lower extremity edema which is thought to be secondary to use of amlodipine for blood pressure. He is not hypoxic, patient monitor at this time looks to be a sinus rhythm in the 70s. Documenting provider has reviewed patient's vital signs: yes Course Course ED Course: If patient was in an arrhythmia, seems to have stabilized. He may need to give the flecainide and Coreg dosing longer to take effect. He does have a Zio patch on but apparently if there was an arrhythmia, we did not get an EKG on arrival. We will get a portable chest x-ray and labs to ensure stable electrolytes, kidney function, no elevation of his troponin. Will continue on cardiac monitoring. I will likely talk to Cardiology once I have further results back to make sure they are aware of this patient's symptoms in issues. Reevaluation(s) Time of Reevaluation #1: 13:14 Reevaluation #1: Have reviewed with patient we see no evidence of arrhythmia. He does seem a bit frustrated, states the fluids last time in the metoprolol made him feel much better. I reviewed with him that his pulse was in the 70s to 80s, the extra medicine he took at home has kicked in. I discussed with him that I have paged Cardiology from [facility], would like to review with them. He really notes that he did feel better when he got IV fluids in the metoprolol last time he was here. He does have the Zio patch on and will trend this in at the end of the monitoring period. His chest x-ray is showing no evidence of congestive heart failure, do feel that would be fine to give him a 500 mL bolus of fluids. He is not hypotensive from the extra medicines he took. He is not becoming bradycardic. He was sent a short prescription of metoprolol which he unfortunately did not get. [facility] and went was transferred over to [facility], they refused to give him the prescription. He attempted to contact [facility] today in the pharmacy was reportedly temporarily closed. Thus, he feels that he will go back into this elevated rhythm, would really like to start the metoprolol. I have reviewed with him that I do think we need to loop cardiology in, I will also order metoprolol 25 mg, not XL. Patient's proBNP in October was 1140, he did have CHF on his chest x-ray at that point but is not having any symptoms of CHF now. Did review with him that fluids can increase risk of congestive heart failure but he is certainly adamant they made him feel better before. I feel comfortable giving him 500 mL, doubtful that that is going to cause any significant abnormality. Time of Reevaluation #2: 14:11 Reevaluation #2: Patient did get a dose of oral metoprolol here, is getting IV fluids. He states he already feels better. Reviewed my conversation with the enterprise account manager with him. He had not been taking the Coreg in the morning anymore, his primary care doctor had stop the Coreg, he is unsure why. He states he has actually never been given a diagnosis of congestive heart failure, in review of his snapshot in [facility] records, I do not see this diagnosis, this may have come from being seen here in October with some fluid overload per report. His TAVR was done 2019, did have drug-eluting stents in 2019 x2. He is comfortable with doing the cope rig, he is noting the rhythm disturbances cropping up more during the day, he states he sleeps pretty good at night and is not feeling anything. This is likely the Coreg wearing off. We will re-initiated at 3.125 mg twice a day, can go up to 6.25 twice a day if he needs further rate suppression. We will complete his fluids and discharge to home. Consultations Consultation #1: Spoke with Dr. Arreola Cardiology from [facility]. He will let Alida Sousa whom works with Dr. Sarkis Celestin better conversation. We have reviewed the patient's history. He feels the patient should go up on his Coreg to 6.25 mg twice a day rather than adding in the metoprolol. Stay at current dosing of flecainide and diltiazem. Patient should complete the ZIO patch and follow up with his electrophysiology cardiology team. Time: 13:17 Vital Signs Vital signs: Initial Vital Signs Temperature 97.2 F L 05/24/25 10:04 Temperature Source Temporal Artery Scan 05/24/25 10:04 Pulse Rate 116 H 05/24/25 10:04 Pulse Rhythm Regular 05/24/25 10:04 Respiratory Rate 24 05/24/25 10:04 Blood Pressure 159/95 H 05/24/25 10:04 Blood Pressure Mean 116 H 05/24/25 10:04 Pulse Oximetry 99 05/24/25 10:04 Oxygen Delivery Method Room Air 05/24/25 10:04 Vital Signs Temperature 97.2 F L 05/24/25 10:04 Pulse Rate 116 H 05/24/25 10:04 Respiratory Rate 24 05/24/25 10:04 Blood Pressure 159/95 H 05/24/25 10:04 Pulse Oximetry 99 05/24/25 10:04 Oxygen Delivery Method Room Air 05/24/25 10:04 Temperature 97.2 F L 05/24/25 10:04 Pulse Rate 79 05/24/25 14:00 Respiratory Rate 19 05/24/25 14:15 Blood Pressure 159/95 H 05/24/25 10:04 Pulse Oximetry 99 05/24/25 14:00 Oxygen Delivery Method Room Air 05/24/25 10:04 Medications Administered Medications: Discontinued Medications Generic Name Dose Route Start Last Admin Trade Name Freq PRN Reason Stop Dose Admin Sodium Chloride 500 mls @ 500 mls/hr 05/24/25 13:14 05/24/25 13:48 0.9 % Sodium Chloride 500 Ml IV 05/24/25 14:13 500 mls/hr .Q1H ONE Administration Metoprolol Tartrate 25 mg 05/24/25 13:14 05/24/25 13:48 Metoprolol Tartrate 25 Mg Tablet PO 05/24/25 13:15 25 mg ONCE ONE Administration MDM - Arrhythmia/Palpitations Lab Data Attestation: I reviewed the patient's lab results. Labs: Lab Results 05/24/25 Range/Units 12:00 WBC 7.33 (4.50-11.00) K/uL RBC 4.06 L (4.30-5.90) m/uL Hgb 12.7 L (13.5-17.5) gm/dL Hct 37.6 (37.0-53.0) % MCV 93 (80-100) fL MCH 31 (26-34) pg MCHC 34 (32-36) gm/dL RDW Coeff of Kenton 12.0 (11.5-15.5) % Plt Count 184 (140-440) K/uL Neut % (Auto) 72.6 H (42.0-72.0) % Lymph % (Auto) 14.2 L (20-44) % Gaines % (Auto) 9.0 (0.0-11.0) % Eos % (Auto) 3.1 (0.0-7.0) % Baso % (Auto) 1.0 (0.0-3.0) % Neut # (Auto) 5.30 (1.7-7.0) K/uL Lymph # (Auto) 1.00 (0.90-2.90) K/uL Gaines # (Auto) 0.70 (0.00-0.90) K/UL Eos # (Auto) 0.23 (0.00-0.50) K/uL Baso # (Auto) 0.07 (0.00-0.30) K/uL Abs Immat Gran (auto) 0.01 (0.00-0.30) K/uL Imm/Tot Granulo (auto) 0.1 % VBG pH 7.372 (7.32-7.43) VBG pCO2 46 (40-50) mmHG VBG pO2 37.3 (25-47) mmHG VBG HCO3 27 (21-28) mmol/L Sodium 136 (135-149) mmol/L Potassium 4.3 (3.6-5.1) mmol/L Chloride 102 (96-114) mmol/L Carbon Dioxide 26 (20-32) mmol/L Anion Gap 8 (7-15) mEq/L BUN 27 (7-30) mg/dL Creatinine 1.3 (0.5-1.5) mg/dL Estimated Creat Clear 47.57 Estimated GFR 56 ml/min Glucose 100 (60-115) mg/dL Calcium 9.3 (8.4-10.6) mg/dL Magnesium 1.9 (1.5-2.6) mg/dL POC Troponin I High Sensi 10.5 (2.9-28.0) pg/mL C-Reactive Protein < 0.5 L (0.5-1.0) mg/dL NT-Pro-B Natriuret Pep 1150 H (See Note) pg/mL Imaging Data Chest x-ray: Attestation: I have reviewed the pertinent imaging results. Radiologist's impression: Patient: CONY SALAZAR Facility:?[facility] Patient ID:?[id number] Site Patient ID:?[id number]. Site :?[id number] Study:?XRay-Chest PORTABLE-05/24/2025 12:25:01 PM Ordering Physician:Jian Arevalo Final Report: Indication: Arrhythmia, shortness of breath, history of CHF Technique: Chest 1 view. Comparison: Chest radiograph 11/08/2024. Findings/Impression: Cardiovascular and mediastinum: Unchanged. Prior TAVR. Lungs and pleural space: No focal lung consolidation. No overt pulmonary edema. No pleural effusion or pneumothorax. Bones and soft tissues: No acute findings. Dictated by Mary Santo MD @ 05/24/2025 12:38:25 PM (Electronic Signature) ECG Data Attestation: I personally reviewed and interpreted this ECG as follows: (Sinus rhythm with sinus arrhythmia and first-degree AV block, 79 beats per minute. No ischemia or infarction noted. QT corrected 424 milliseconds.) ECG interpretation date: 05/24/25 ECG interpretation time: 11:50 Prior ECG tracings: available for review Discharge Plan Discharge Clinical Impression: Tachyarrhythmia Patient Disposition: Home, Self-Care Condition: Stable Instructions: Tachycardia (ED) Additional Instructions: Complete the Zio patch that you have on, return as per your instructions. Unfortunately, we did not catch the arrhythmia associated with the elevated heart rate today. As discussed with cardiology at [facility], you should be on the Coreg 3.125 mg twice a day. Initiate this, you are only taking it at night and the medication is probably wearing off allowing for increased rhythm or heart rate. If at the 3.125 mg twice daily dosing you are still notice seen episodes of elevated heart rate, can increase to 6.25 mg twice a day. I do request that you contact Alida Sousa/Dr. Dockery and seek further instructions are evaluation with them. If you have concerns about arrhythmia at any point, we are always here. No that it can take 2-4 hours for arrhythmia to settle down when you are doing the pill in pocket with the flecainide and extra dose of Coreg. Activity Level: Activity as Tolerated Prescriptions: New carvedilol 3.125 mg tablet 3.125 mg PO BID Qty: 60 1RF Rx Instructions: must administer with a meal/food Can increase to 6.25 mg (2 pills) twice a day if you continue to notice episodes of increased heart rate. No Action (DME) cpap 0 .Route .MEDSUPPLY multivitamin [Multiple Vitamins] Tablet 1 tab PO DAILY saw palmetto 450 mg capsule 450 mg PO DAILY Rx Instructions: give with food (meal/snack) turmeric 400 mg capsule 400 mg PO QDAY omega-3 fatty acids 500 mg capsule 500 mg PO DAILY vitamin A-vitamin C-vit E-min Tablet 1 tab PO DAILY cholecalciferol (vitamin D3) [Vitamin D3] 50 mcg (2,000 unit) capsule 2,000 unit PO DAILY doxazosin 8 mg tablet 8 mg PO HS hydrochlorothiazide 25 mg tablet 25 mg PO DAILY rosuvastatin [Crestor] 20 mg tablet 20 mg PO HS diltiazem HCl 120 mg capsule,extended release 24hr 120 mg PO DAILY flecainide 50 mg tablet 50 mg PO Q12H amoxicillin 500 mg capsule 2,000 mg PO ONCE Patient Comments: TAKE 4 CAPSULES BY MOUTH 1 HOUR BEFORE PROCEDURE Xarelto 20 mg tablet 20 mg PO QPM loteprednol etabonate 0.5 % drops,suspension ophthalmic (eye) glucosamine-chondroitin [Cosamin DS] 500-400 mg tablet 1 tab PO DAILY furosemide [Lasix] 20 mg tablet 20 mg PO DAILY Qty: 5 0RF metoprolol tartrate 25 mg tablet 25 mg PO BID PRNQty: 60 2RF metoprolol tartrate 25 mg tablet 25 mg PO BID Qty: 20 2RF carvedilol [Coreg] 3.125 mg tablet 3.125 mg PO BID Qty: 60 2RF Rx Instructions: must administer with a meal/food meloxicam 15 mg tablet 15 mg PO QDAY Qty: 90 3RF Follow Up/Referrals: Allen Gonzalez MD [Primary Care Provider, Family Practice] Stand Alone Forms: MyHealth Info Instructions Procedures ABG Interpretation ABG Results: 05/24/25 12:00 VBG pH 7.372 VBG pCO2 46 VBG pO2 37.3 VBG HCO3 27
--- NOTE | 2025-05-24 11:37 | CRLHL7_ITS ---
For Patients: As a result of the Cures Act, medical imaging exams and procedure reports are released immediately into your electronic medical record. You may view this report before your referring provider. If you have questions, please contact your health care provider. Indication: Arrhythmia, shortness of breath, history of CHF Technique: Chest 1 view. Comparison: Chest radiograph 11/08/2024. Findings/Impression: Cardiovascular and mediastinum: Unchanged. Prior TAVR. Lungs and pleural space: No focal lung consolidation. No overt pulmonary edema. No pleural effusion or pneumothorax. Bones and soft tissues: No acute findings. Dictated by Mary Santo MD @ 05/24/2025 12:38:25 PM (Electronically Signed)
[2025-05-24 12:06] LABS: HCO3 VBG 27 mmol/L (21-28); PCO2 VBG 46 mmHG (40-50); PO2 VBG 37.3 mmHG (25-47); pH VBG 7.372 (7.32-7.43)
[2025-05-24 12:11] LABS: Hematocrit* 37.6 % (37.0-53.0); Hemoglobin* 12.7 gm/dL (13.5-17.5); Immature Granulocytes Abs Auto 0.01 K/uL (0.00-0.30); Immature Granulocytes Pct Auto 0.1 %; Mean Corpuscular HGB Conc 34 gm/dL (32-36); Mean Corpuscular Hemoglobin 31 pg (26-34); Mean Corpuscular Volume 93 fL (80-100); RDW Coefficient of Variation % 12.0 % (11.5-15.5); Red Blood Count* 4.06 m/uL (4.30-5.90); White Blood Count* 7.33 K/uL (4.50-11.00)
[2025-05-24 12:13] LABS: Lymphocytes Absolute Auto 1.00 K/uL (0.90-2.90); Slide Review Reflex No
[2025-05-24 12:23] LABS: Chloride* 102 mmol/L (96-114); Potassium* 4.3 mmol/L (3.6-5.1); Sodium* 136 mmol/L (135-149)
[2025-05-24 12:26] LABS: Anion Gap 8 mEq/L (7-15); Blood Urea Nitrogen* 27 mg/dL (7-30); Calcium* 9.3 mg/dL (8.4-10.6); Carbon Dioxide* 26 mmol/L (20-32); Creatinine* 1.3 mg/dL (0.5-1.5); Est. Creatinine Clearance* 47.57; Estimated Glomerular Filt Rate 56 ml/min; Glucose* 100 mg/dL (60-115)
[2025-05-24 12:41] LABS: NT Pro B Type NatriureticPept* 1150 pg/mL (See Note)
[2025-05-24] MEDS: 0.9 % SODIUM CHLORIDE 500 ML 500 ML IV (13:48)
[2025-05-24] MEDS: METOPROLOL TARTRATE 25 MG TABLET PO (13:48)
== END 2025-05-24 14:44 | disposition home or self-care (01) ==
PROVIDERS: Emergency Provider Family Medicine; PCP Family Medicine
DX: R00.0 Tachycardia, unspecified (principal); R42 Dizziness and giddiness; R06.02 Shortness of breath; I48.92 Unspecified atrial flutter; G47.33 Obstructive sleep apnea (adult) (pediatric); Z79.01 Long term (current) use of anticoagulants; Z79.899 Other long term (current) drug therapy; Z99.89 Dependence on other enabling machines and devices
CPT/HCPCS: 36415; 71045; 80048; 82803; 83735; 83880; 84484; 85025; 86140; 93005; 94761; 99284; 99285; A9270; J7030

== ENCOUNTER 2025-06-18 20:29 | Emergency (ER) | payer MEDICARE, OTHER, SELFPAY ==
--- OUTSIDE RECORDS SUMMARY | 2025-06-18 20:31 | XMS_ITS | Clinical Summary ---
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 CarvedilolOther - Describe In Comment Field10/16/2024 [place] terrible, fatigue. GgkimqzwdaKuvhzFhg96/30/2008LosartanOther - Describe In Comment Field05/11/2012 Exercise intolerance. Dabigatran EtexilateOther - Describe In Comment Field07/07/2022 [place] poorly. Ok on Xarelto. Medications MedicationSigDispense QuantityRefillsLast FilledStart DateEnd DateStatus cholecalciferol (VITAMIN D3) 2,000 unit capsule Take 1 capsule by mouth once daily.ctive CPAP Indications:NELLI (obstructive sleep apnea)CPAP machine for home use at pressure 5cm, nasal mask x1/3month with nasal pillows x 2/mo 1 Each 11010/11/2023ctive amoxicillin (AMOXIL) 500 mg capsule Indications:Need for SBE (subacute bacterial endocarditis) prophylaxisTAKE 4 CAPSULES BY MOUTH ONE HOUR BEFORE PROCEDURE. 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 Prostagenics supplement for prostate health Active hydroCHLOROthiazide 25 mg tablet Indications:Essential hypertensionTake 1 Tablet (25 mg) by mouth once daily. 90 Tablet 5Active rosuvastatin 20 mg tablet Indications:Mixed hyperlipidemia,ASHD (arteriosclerotic heart disease)Take 1 Tablet (20 mg) by mouth at bedtime. 90 Tablet 5Active furosemide 20 mg tablet Indications:Heart failure with preserved ejection fraction, unspecified HF chronicity (HC)One tab oral daily as needed for fluid retention. 30 Tablet 5Active dilTIAZem CD (CARDIZEM CD) 120 mg extended release 24 hr capsule Indications:Atrial fibrillation and flutter (HC)Take 1 Capsule (120 mg) by mouth once daily. 90 Capsule 5Active rivaroxaban (Xarelto) 20 mg tablet Indications:Atrial fibrillation and flutter (HC)Take 1 Tablet (20 mg) by mouth once daily with evening meal. 90 Tablet 5Active doxazosin (CARDURA) 8 mg tablet Indications:Essential hypertensionTAKE 1 TABLET AT BEDTIME 90 Tablet 5Active metoprolol tartrate (LOPRESSOR) 25 mg tablet Indications:Supraventricular premature beatsTake 1 Tablet (25 mg) by mouth two times daily. 180 Tablet 5Active flecainide (TAMBOCOR) 50 mg tablet Indications:Atrial fibrillation and flutter (HC)Take 1 tablet (50 mg) as needed for elevated HR events. If you are taking these frequently please call the office 14 Tablet 5Active doxazosin 8 mg tablet Indications:Essential hypertensionTake 1 Tablet (8 mg) by mouth at bedtime. 90 Tablet Discontinued amLODIPine 5 mg tablet Indications:Benign essential HTNTake 1 Tablet (5 mg) by mouth once daily. 90 Tablet Discontinued(*Medication adjustment) carvediloL (COREG) 3.125 mg tablet Indications:Atrial fibrillation and flutter (HC)Take 1 Tablet (3.125 mg) by mouth once daily. Daily in the evening. 90 Tablet Discontinued(*Med complete/Regimen complete/Level of care change) metoprolol tartrate (LOPRESSOR) 25 mg tablet Indications:Supraventricular premature beatsTake 1 Tablet (25 mg) by mouth 2 times daily if needed.Discontinued(Reorder (E-cancel not sent)) Active Problems Patient Care Coordination No te Formatting of this note migh t be different from the original. HF/Structural Research Eligibility Review Date: 09/13/18 Age: 73 Insurance: Medicare EF: 63% 07/21/18 Valve/Imaging: Moderate-severe Comments: STS 2% Structural: Low Risk CAP: Possible Low Risk Bicuspid: No, d/t valve not bicuspid ProblemNoted DateDiagnosed DateH/O ymhbvnqgld39/09/2025trial fibrillation and fadnmxt7909/10/2021ilateral lower extremity edema10/14/2020TAVR using bioprosthesis Overview (05/30/2019): [address] Campos CAD, s/p IMANI 08/2018 and Mitral xefqrfcekydjk28/11/2013OSA 05/19/2012 AHI-5, REM supine 37107/26/2011Premature Atrial Contractions; bmtjydquhox05/02/2011Unspecified essential fjodopvdqhtg31/16/2009Mixed hnjllenhpiwify39/16/2009Inguinal scanfd6707/12/2008Sensorineural hearing loss, akkazoges26/01/2008Subjective /01/2008 Resolved Problems ProblemNoted DateDiagnosed DateResolved DateAcute respiratory failure with csnqkap64/cute pulmonary edemaortic valve xsqjyzdw88creen for colon hjiemg47 Overview (05/19/2010): Colonoscopy 04/2010 normal repeat in 10 years Hx of Paroxysmal atrial jbhlxgyitzsf88 Overview (07/14/2010): -05/25/10 S/P a fib ablation (dr Dockery) Gkkftfoscbqh962Cardiac dysrhythmia, bobttpeakmz09/14/2022 Overview (03/03/2012): palpatation Other chest pain2DOE (dyspnea on exertion)07/13/2021 Encounters DateTypeDepartmentCare AcjdGgdubkutnph86/10/2025Telephone [facility] [address] [place] [address] Jordy Dockery MD Results (ZIO)06/05/2025Results Follow-Up [address] [place] [address] Alida Sousa NP 05/27/2025Telephone [facility] [address] [place] [address] Alida Sousa NP Medication Management; Etfcsmfgw78/30/2025Refill [facility] [address] [place] [address] Allen Gonzalez MD Refill Request (Doxazosin)05/24/2025Orders Only [facility] Scanner 1 scan: (1-Ord) [facility], CHEST 1V PORTABLE, 5107/22/2024Telephone [facility] [address] [place] [address] Jordy Dockery MD Medication Lmbgjltyoj63/19/2025Telephone [facility] [address] [place] [address] Alida Sousa NP Nsxooiau78/04/2025Orders Only [facility] [address] [place] [address] Allen Gonzalez MD Labfrom Last 3 Months Immunizations ImmunizationAdministration DatesNext DueCOVID-19 vaccine (Pfizer-BioNTech 30mcg/0.3mL) 12YO+ JACOBO-SUCROSE PF, MDV2COVID-19 vaccine (Pfizer- BioNTBinary Thumb 30mcg/0.3mL) PF, MDV09/06/2020,08/16/2020Influenza A (H1N1), Xjrvazictty06/12/2010Influenza Virus, Mgileinmxob34/17/2015Influenza, High-dose Kijiwawiewm95/08/2025,03/14/2019,04/07/2018,06/03/2017Influenza, High-dose Quadrivalent Grbiorrbxea69/23/2023,03/18/2022,04/01/2021Influenza, IIV3 (Age >=3 years)04/30/2015,04/16/2014,05/04/2013,05/01/2012,04/27/2010Influenza, IIV4 07/08/2009Influenza, Inactivated AIIV4 (Age 65+ Years) Preserv Free03/28/2020 Pneumococcal Poly,23-Valent (Pneumovax)07/07/2018Pneumococcal conj 13-Valent (Prevnar 13)06/02/2016RSV, Recombinant ADJ Reconstituted (Arexvy 120MCG/0.5mL) 03/28/2023Tdap08/27/2017,12/30/2009Zoster (Shingrix-RZV, recombinant)06/07/2022, 03/18/2022Zoster (Zostavax-ZVL, live)06/27/2013 Family History Medical HistoryRelationNameCommentsNo Known ProblemsFatherNo Known Problems MotherAnesthesia ProblemNo Family HistoryCancer-breastNo Family History Cancer-colonNo Family HistoryRelationNameStatusCommentsFatherMother Social History Tobacco UseTypesPacks/DayYears UsedDateSmoking Tobacco: KpnubfHlmzfcshnr91 06/27/1971 - 06/27/1975Smokeless Tobacco: Never Tobacco Cessation:Counseling Given: No Alcohol UseStandard Drinks/WeekCommentsYes3 (1 standard drink = 0.6 oz pure alcohol)A few beers a weekPHQ-2AnswerDate RecordedPHQ-2 TOTAL [id number] Social ConnectionsAnswerDate RecordedDo you often feel lonely or isolated from those around you?lcohol UseAnswerDate RecordedHow often do you have a drink containing alcohol?How many drinks containing alcohol do you have on a typical day when you are drinking?How often do you have five or more drinks on one occasion?Financial Resource StrainAnswer Date RecordedDifficulty of Paying Living Tzxrnwdn277/05/2025Difficulty of Paying Living ExpensesNot on file07/01/2024Food InsecurityAnswerDate RecordedDo you worry your food will run out before you are able to buy more? Transportation NeedsAnswerDate RecordedDoes lack of transportation keep you from medical appointments?Does lack of transportation keep you from work, meetings or getting things that you need?Housing StabilityAnswerDate RecordedWhat is your housing situation today?Interpersonal Safety AnswerDate RecordedAre you being hit, kicked, pushed or yelled at (see row info)?No09/25/2024Interpersonal Safety Abuse 12 - 18Not on file09/25/2024 Interpersonal Safety Ambulatory VulnerabilityNot on file09/25/2024Utilities AnswerDate RecordedDo you have trouble paying for utilities (for example, heat, electricity, water, phone)?Sex and Gender InformationValueDate RecordedSex Assigned at BirthNot on fileLegal LgzXndo6507/10/2012 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 [employer] Gender IdentityNot on fileSexual OrientationNot on file Last Filed Vital Signs Vital SignReadingTime TakenCommentsBlood Rtkcupgo449/6909 1:43 PM CDT Tolad433703/15/2025 1:43 PM YSWIsunbmhayip82.1 ??C (98.8 ??F)09/26/2024 7:51 AM CDTRespiratory Jjkv374509/26/2024 7:51 AM CDTOxygen Hcdnscqxfw62%03/15/2025 1:43 PM CDTInhaled Oxygen Concentration--Ppnsox328.4 kg (225 lb 12.8 oz)03/15/2025 1:43 PM THOHcjpku641.5 cm (5' 10.28)01/07/2025 3:14 PM CDTBody Mass Index32.14 01/07/2025 3:14 PM CDT Plan of Treatment DateTypeDepartmentCare Team (Latest Contact Info)Yyqvbddnptk79/11/2026 3:00 PM CSTOffice Visit [facility] [address] [place] [address] [address] [place] [address] Alida Sousa NP [address] [place], [place] [id number] Health MaintenanceDue DateLast DoneCommentsMedicare Wellness for age 65+ 2010Depression screening for age 12+/, 06/25/2019, 06/22/2019, Additional history existsCOVID-19 vaccine series (2024- season)/, 03/28/2023, 04/06/2022, Additional history exists Influenza Vaccine (#1)/01/2025, 03/28/2020, 03/14/2019, Additional history existsBMI (ht and wt on same day) for age 18+/, 10/16/2024, 08/15/2024, Additional history existsTetanus iouikwh9208/28/2027 08/27/2017, 12/30/2009Pneumococcal series for age 50+Dxgrbebhc31/11/2019, 06/02/2016Hepatitis C screening for age 18-49Vkxbilndv37/12/2022Zoster (shingles) series for age 50+Nqunuqioz16/12/2022, 03/18/2022, 06/27/2013RSV vaccine for adults or jjjvhumtlAbhecwpfd00/02/2023Hepatitis B series for 19+Aged OutNo longer eligible based on patient's age to complete this topic Procedures Procedure NamePriorityDate/TimeAssociated DiagnosisCommentsSCAN-RADIOLOGY REPORT 05/24/2025 12:00 AM 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 [employer] EXTENDED SSUUQEStluoza65/22/2025 Atrial fibrillation and flutter (HC) OCCULT BLOOD IFOBT CTACZOsrdbph46/01/2025 12:00 PM CDT Screening for colon cancer ANTI DBZVvolzup56/12/2022 9: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 [employer] Need for hepatitis C screening test from Last 3 Months or Most Recently Relevant to Health Maintenance Results * SCAN-RADIOLOGY REPORT (05/24/2025 12:00 AM 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 [employer]Y)Anatomical RegionLaterality ModalityOther Narrative Authorizing ProviderResult TypeResult StatusScannerOTHERFinal Result * Zio XT (05/18/2025) Narrative Authorizing ProviderResult TypeResult StatusElilinda Sousa NPCARDIAC SERVICES ORDFinal Result * OCCULT BLOOD IFOBT STOOL (04/27/2025 12:00 PM CDT)ComponentValueRef RangeTest MethodAnalysis TimePerformed AtPathologist SignatureSTOOL BLOOD ,IFOBTNegative Ufaensyl12/10/2025 3:32 PM CST[facility] Specimen (Source)Anatomical Location / LateralityCollection Method / Volume Collection TimeReceived TimeStoolSTOOL SPECIMEN / UnknownNon-Blood / Unknown 04/27/2025 12:00 PM CDT107/03/2024 9:42 PM 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 [place] [address], from Last 3 Months or Most Recently Relevant to Health Maintenance Insurance MemberSubscriberPlan / Payer (Effective 2013-Present)Name:Johanny Love Relation to Subscriber:SelfName:Johanny Love Payer ID:[id number] (NAIC) Type:Not on file Address: [place] [phone] Advance Directives * Full Code (Latest Code Status on File) Date ActivatedDate InactivatedComments09/25/2024 3:27 PM09/26/2024 1:46 PMQuestion AnswerCommentsCode Status Discussion:* Other (specify in comments): * Full Code Date ActivatedDate InactivatedComments09/11/2021 1:22 AM09/13/2021 2:24 PMQuestion AnswerCommentsCode Status Discussion:* Reviewed Preferences * Full Code Date ActivatedDate InactivatedComments09/09/2021 9:16 AM09/10/2021 12:39 PM QuestionAnswerCommentsCode Status Discussion:* Other (specify in comments): * Full Code Date ActivatedDate QgccvgmnqrtIeguguoj48/3/2019 4:11 PM05/30/2019 3:55 PM * Full Code Date ActivatedDate InactivatedComments03/16/2019 8:32 AM03/17/2019 3:00 PM Care Teams Team MemberRelationshipSpecialtyStart DateEnd Date Allen Gonzalez MD [address] [place] [address] PCP - General10/05/05 Allen Winslow MD [address] [place] [address] CardiologyCardiovascular Disease12/02/09
[2025-06-18 20:42] VITALS: BP 166/111; PULSE 116; RESP 20; TEMP 36.6; O2SAT 99; BMI 31.0
--- NOTE | 2025-06-18 20:45 | ED.GENADULT ---
HPI - General Adult General Chief complaint: Arrhythmia/Palpitations Stated complaint: afib Time Seen by Provider: 06/18/25 20:40 History of Present Illness HPI narrative: CC: A-fib, High Heart Rate pt. with symptoms for last 3 days. has managed this with metoprolol and flecainide. last dose of flecainide was 1200 and metoprolol at 1800. denies chest pain. short of breath with exertion. 79-year-old man presenting to the emergency department with concern of rapid heart rate and feeling like ?crap?. Has a long history of AFib a flutter with ablations. This is now the 3rd visit for tachyarrhythmia and to this emergency department in the last 3-4 weeks. History of regular flecainide dosing until about 6 months ago. Was on Coreg until recently as well when was transitioned to metoprolol. historically has not liked how metoprolol makes him feel. Is taking b.i.d. 25 mg of metoprolol. Also has flecainide now available as a p.r.n.. He did take flecainide around 8 hours prior to arrival and metoprolol around 3 hours prior to arrival. History of amlodipine but he bloated heavily he said. Was effective with blood pressure control though historically. Major symptom today was noted to be exertional fatigue. History of good response to IV fluids and metoprolol. Related Data Home Medications ?Medication ?Instructions ?Recorded ?Confirmed cholecalciferol (vitamin D3) 50 2,000 unit PO DAILY 01/05/22 06/11/25 mcg (2,000 unit) capsule (Vitamin D3) cpap 01/05/22 01/15/25 doxazosin 8 mg tablet 8 mg PO HS 01/05/22 06/11/25 hydrochlorothiazide 25 mg tablet 25 mg PO DAILY 01/05/22 06/11/25 multivitamin (Multiple Vitamins 1 tab PO DAILY 01/05/22 06/11/25 tablet) omega-3 fatty acids 500 mg capsule 500 mg PO DAILY 01/05/22 06/11/25 rosuvastatin 20 mg tablet (Crestor) 20 mg PO HS 01/05/22 06/11/25 saw palmetto 450 mg capsule 450 mg PO DAILY 01/05/22 06/11/25 turmeric 400 mg capsule 400 mg PO QDAY 01/05/22 06/11/25 vitamin A-vitamin C-vit E-min 1 tab PO DAILY 01/05/22 06/11/25 tablet diltiazem HCl 120 mg 120 mg PO DAILY 01/06/22 06/11/25 capsule,extended release 24 hr flecainide 50 mg tablet 50 mg PO Q12H 01/06/22 06/11/25 glucosamine-chondroitin 500 mg-400 1 tab PO DAILY 04/12/22 06/11/25 mg tablet (Cosamin DS) rivaroxaban 20 mg tablet (Xarelto) 20 mg PO QPM 07/13/22 06/11/25 loteprednol etabonate 0.5 % eye drp ophthalmic (eye) 04/17/24 06/11/25 drops,suspension Previous Rx's ?Medication ?Instructions ?Recorded carvedilol 3.125 mg tablet (Coreg) 3.125 mg PO BID #60 tabs 08/13/24 furosemide 20 mg tablet (Lasix) 20 mg PO DAILY #5 tabs 11/08/24 meloxicam 15 mg tablet 15 mg PO QDAY #90 tabs 12/03/24 metoprolol tartrate 25 mg tablet 25 mg PO BID PRN #60 tabs 05/21/25 metoprolol tartrate 25 mg tablet 25 mg PO BID #20 tabs 05/22/25 carvedilol 3.125 mg tablet 3.125 mg PO BID #60 tabs 05/24/25 Allergies Allergy/AdvReac Type Severity Reaction Status Date / Time dabigatran etexilate (From Allergy felt Verified 01/15/25 08:26 Pradaxa) poorly. ok on xarelto Review of Systems Status of ROS: Reports: 6 or more systems reviewed and unremarkable except as noted in History and below [facility] Medical History Rupture of left biceps tendon ?S46.212A - Strain of muscle, fascia and tendon of other parts of biceps, left arm, initial encounter (ICD-10) Plantar fasciitis, right ?M72.2 - Plantar fascial fibromatosis (ICD-10) Sprain of right hand ?S63.91XA - Sprain of unspecified part of right wrist and hand, initial encounter (ICD-10) Biceps tendon tear ?S46.219A - Strain of muscle, fascia and tendon of other parts of biceps, unspecified arm, initial encounter (ICD-10) Strain of left biceps ?S46.212A - Strain of muscle, fascia and tendon of other parts of biceps, left arm, initial encounter (ICD-10) Chronic anticoagulation ?Z79.01 - snf (current) use of anticoagulants (ICD-10) Heart failure due to valvular disease ?I50.9 - Heart failure, unspecified (ICD-10) ?I38 - Endocarditis, valve unspecified (ICD-10) Chronic kidney disease ?N18.9 - Chronic kidney disease, unspecified (ICD-10) Tear of medial meniscus of right knee ?S83.241A - Other tear of medial meniscus, current injury, right knee, initial encounter (ICD-10) Osteoarthritis of right knee ?M17.11 - Unilateral primary osteoarthritis, right knee (ICD-10) Tachycardia ?R00.0 - Tachycardia, unspecified (ICD-10) PAC (premature atrial contraction) ?I49.1 - Atrial premature depolarization (ICD-10) GERD (gastroesophageal reflux disease) ?K21.9 - Gastro-esophageal reflux disease without esophagitis (ICD-10) Sleep apnea ?G47.30 - Sleep apnea, unspecified (ICD-10) Hypertension ?I10 - Essential (primary) hypertension (ICD-10) Irregular heart beat ?I49.9 - Cardiac arrhythmia, unspecified (ICD-10) Hyperlipidemia ?E78.5 - Hyperlipidemia, unspecified (ICD-10) Cardiac arrhythmia ?I49.9 - Cardiac arrhythmia, unspecified (ICD-10) Tinnitus ?H93.19 - Tinnitus, unspecified ear (ICD-10) Surgical History History of arthroscopy of left shoulder (10/22/24) ?Z98.890 - Other specified postprocedural states (ICD-10) History of arthroplasty of right knee (05/09/23) ?Z96.651 - Presence of right artificial knee joint (ICD-10) Hx of left cataract extraction (11/17/22) ?Z98.42 - Cataract extraction status, left eye (ICD-10) History of right cataract surgery (11/03/22) ?Z98.41 - Cataract extraction status, right eye (ICD-10) Hx of atrioventricular megan ablation ?Z98.890 - Other specified postprocedural states (ICD-10) Hx of hemorrhoidectomy ?Z98.890 - Other specified postprocedural states (ICD-10) Hx of hernia repair ?Z98.890 - Other specified postprocedural states (ICD-10) ?Z87.19 - Personal history of other diseases of the digestive system (ICD-10) H/O arthroscopy of shoulder (04/14/22) ?Z98.890 - Other specified postprocedural states (ICD-10) H/O heart artery stent (09/13/08) ?Z95.5 - Presence of coronary angioplasty implant and graft (ICD-10) Family History Father Throat cancer Mother Heart problem Social History Narrative: , retired, former smoker (quit 1975) He lives with his [facility]. He lives in a two-story house with the bedroom and bathroom upstairs. Main living area, kitchen and bathroom downstairs. What is your current living situation?: I presently have a place to live In the past 12 months, utilities in danger of being shut off: no In past 12 months, lack of transportation kept you from medical appts, meetings, work, or getting things needed for daily living: no In the past 12 mos, have been you worried that your food would run out before you had money to buy more?: never true In the past 12 mos, the food you bought just didn't last and you didn't have money to buy more?: never true Smoking Status: Former smoker Do you use any of these nicotine containing products: None Second hand tobacco smoke exposure: No How often do you have a drink containing alcohol: monthly or less Alcohol type: beer How many standard drinks containing alcohol do you have on a typical day: 1 or 2 How often do you have six or more drinks on one occasion: Less than monthly AUDIT-C Alcohol total score: 2 Non-prescribed substance use: denies use Caffeine: Yes Are you now , , , , never or living with a partner: Social isolation score (0-1 are the most socially isolated patients): 1 How often does anyone, including family, friends and others, physically hurt you: never How often does anyone, including family, friends and others, insult or talk down to you: never How often does anyone, including family, friends and others, threaten you with harm: never How often does anyone, including family, friends and others, scream or curse at you: never service: No Exam Narrative: Exam Narrative: Pleasantly talkative. NAD. Skin is warm and dry. Is well-perfused. Breathing easily. Lungs are clear. No lower extremity edema. No JVD. heart appears to be in a occasionally irregular rhythm, but rapid, mildly tachycardic. abdomen soft and nontender. Const: Vital Signs, click to edit/add: Vital Signs - 24 hr 06/18/25 20:42 06/18/25 20:59 06/18/25 21:02 Temperature 97.8 F Pulse Rate 114 H Pulse Rate [Right Pulse Oximeter] 116 H Respiratory Rate 20 15 Blood Pressure 156/67 H Blood Pressure [Le ft Upper Arm] 166/111 H Pulse Oximetry 99 99 98 Oxygen Delivery Me thod Room Air Room Air 06/18/25 21:32 06/18/25 22:08 06/18/25 22:32 Temperature Pulse Rate 99 100 84 Pulse Rate [Right Pulse Oximeter] Respiratory Rate 14 16 12 Blood Pressure 157/91 H 153/103 H 142/76 H Blood Pressure [Le ft Upper Arm] Pulse Oximetry 97 98 97 Oxygen Delivery Me thod Room Air Room Air Room Air Documenting provider has reviewed patient's vital signs: yes Course Vital Signs Vital signs: Initial Vital Signs Temperature 97.8 F 06/18/25 20:42 Temperature Source Temporal Artery Scan 06/18/25 20:42 Pulse Rate 116 H 06/18/25 20:42 Respiratory Rate 20 06/18/25 20:42 Blood Pressure 166/111 H 06/18/25 20:42 Blood Pressure Mean 129 H 06/18/25 20:42 Blood Pressure Position Sitting 06/18/25 20:42 Pulse Oximetry 99 06/18/25 20:42 Oxygen Delivery Method Room Air 06/18/25 20:42 Vital Signs Temperature 97.8 F 06/18/25 20:42 Pulse Rate 116 H 06/18/25 20:42 Respiratory Rate 20 06/18/25 20:42 Blood Pressure 166/111 H 06/18/25 20:42 Pulse Oximetry 99 06/18/25 20:42 Oxygen Delivery Method Room Air 06/18/25 20:42 Temperature 97.8 F 06/18/25 20:42 Pulse Rate 84 06/18/25 22:32 Respiratory Rate 12 06/18/25 22:32 Blood Pressure 142/76 H 06/18/25 22:32 Pulse Oximetry 97 06/18/25 22:32 Oxygen Delivery Method Room Air 06/18/25 22:32 Medications Administered Medications: Discontinued Medications Generic Name Dose Route Start Last Admin Trade Name Freq PRN Reason Stop Dose Admin Sodium Chloride 1,000 mls @ 1,000 mls/hr 06/18/25 20:54 06/18/25 22:02 0.9 % Sodium Chloride 1000 Ml IV 06/18/25 21:53 Infused .Q1H ONE Infusion Metoprolol Tartrate 5 mg 06/18/25 20:54 06/18/25 21:10 Metoprolol Tartrate 1 Mg/Ml Inj IVP 06/18/25 20:55 5 mg ONCE ONE Administration Metoprolol Tartrate 5 mg 06/18/25 22:20 06/18/25 22:28 Metoprolol Tartrate 1 Mg/Ml Inj IVP 06/18/25 22:21 5 mg ONCE ONE Administration Medical Decision Making MDM Narrative Medical decision making narrative: I suspect probably would not hold a cardioversion if is in atrial fibrillation. He continues to anticoagulate. Reviewing EKG I am not convinced is actually atrial fibrillation per his concern. junctional? There are some P waves visible. is initiated on normal saline fluid bolus and continue to monitor on school lunch monitor. Given dosing of metoprolol IV. This does slow rate down. On EKG sinus rhythm more certain with first-degree AV block. chemistries , including magnesium as well as hemoglobin were WNL. Remained in identifiable sinus rhythm during time in the emergency department but pulse did creep up somewhat. this was concerning to Mr. Love. I did discuss this case with Cardiology on-call. This case/treatment is somewhat complicated. No further recommendations beyond possibly increasing metoprolol and returning to see EP. Re-dosed metoprolol IV prior to departure. see patient discharge plan for further discussion Stay well-hydrated. In consultation with Cardiology, they would like you to increase your beta-christie; in your case the metoprolol. I would take 25 mg every 8 hours or alternatively 50 mg twice a day. Consider Valsalva maneuvers as discussed if heart rate climbs high again. I think once a day you could also take an extra 25 mg for heart rate over 100 that lasts an hour. If your heart rate is not coming down or you are feeling particularly uncomfortable, please return to the emergency department. Please schedule follow-up with your pump operator byproducts and take these EKGs in for review. Medical Records Medical records reviewed: Yes I reviewed the patient's medical records Lab Data Lab results reviewed: Yes I reviewed the patient's lab results Labs: Lab Results 06/18/25 Range/Units 20:50 Hgb 12.3 L (13.5-17.5) gm/dL Sodium 138 (135-149) mmol/L Potassium 4.1 (3.6-5.1) mmol/L Chloride 105 (96-114) mmol/L Carbon Dioxide 26 (20-32) mmol/L Anion Gap 7 (7-15) mEq/L BUN 24 (7-30) mg/dL Creatinine 1.3 (0.5-1.5) mg/dL Estimated Creat Clear 47.57 Estimated GFR 56 ml/min Glucose 128 H (60-115) mg/dL Calcium 8.9 (8.4-10.6) mg/dL Magnesium 1.9 (1.5-2.6) mg/dL ECG Data Attestation: I personally reviewed and interpreted this ECG as follows: (EKG 1. Is demonstrating P-waves at a rate of 118. Is irregular. Junctional? EKG number 2 following initial metoprolol dosing shows junctional rhythm with premature supraventricular complex EKG 3. After 2nd dosing of metoprolol showing sinus rhythm and first-degree block; much more regular. 77) Discharge Plan Discharge Clinical Impression: Tachycardia Patient Disposition: Home, Self-Care Condition: Improved Additional Instructions: Stay well-hydrated. In consultation with Cardiology, they would like you to increase your beta-christie; in your case the metoprolol. I would take 25 mg every 8 hours or alternatively 50 mg twice a day. Consider Valsalva maneuvers as discussed if heart rate climbs high again. I think once a day you could also take an extra 25 mg for heart rate over 100 that lasts an hour. If your heart rate is not coming down or you are feeling particularly uncomfortable, please return to the emergency department. Please schedule follow-up with your pump operator byproducts and take these EKGs in for review. Prescriptions: No Action (DME) cpap 0 .Route .MEDSUPPLY multivitamin [Multiple Vitamins] Tablet 1 tab PO DAILY saw palmetto 450 mg capsule 450 mg PO DAILY Rx Instructions: give with food (meal/snack) turmeric 400 mg capsule 400 mg PO QDAY omega-3 fatty acids 500 mg capsule 500 mg PO DAILY vitamin A-vitamin C-vit E-min Tablet 1 tab PO DAILY cholecalciferol (vitamin D3) [Vitamin D3] 50 mcg (2,000 unit) capsule 2,000 unit PO DAILY doxazosin 8 mg tablet 8 mg PO HS hydrochlorothiazide 25 mg tablet 25 mg PO DAILY rosuvastatin [Crestor] 20 mg tablet 20 mg PO HS diltiazem HCl 120 mg capsule,extended release 24hr 120 mg PO DAILY flecainide 50 mg tablet 50 mg PO Q12H Xarelto 20 mg tablet 20 mg PO QPM loteprednol etabonate 0.5 % drops,suspension ophthalmic (eye) glucosamine-chondroitin [Cosamin DS] 500-400 mg tablet 1 tab PO DAILY furosemide [Lasix] 20 mg tablet 20 mg PO DAILY Qty: 5 0RF metoprolol tartrate 25 mg tablet 25 mg PO BID PRNQty: 60 2RF metoprolol tartrate 25 mg tablet 25 mg PO BID Qty: 20 2RF carvedilol [Coreg] 3.125 mg tablet 3.125 mg PO BID Qty: 60 2RF Rx Instructions: must administer with a meal/food carvedilol 3.125 mg tablet 3.125 mg PO BID Qty: 60 1RF Rx Instructions: must administer with a meal/food Can increase to 6.25 mg (2 pills) twice a day if you continue to notice episodes of increased heart rate. meloxicam 15 mg tablet 15 mg PO QDAY Qty: 90 3RF Follow Up/Referrals: Allen Gonzalez MD [Primary Care Provider, Family Practice] Stand Alone Forms: [employer] Info Instructions
[2025-06-18 20:59] VITALS: O2SAT 99
[2025-06-18 21:02] VITALS: BP 156/67; PULSE 114; RESP 15; O2SAT 98
[2025-06-18 21:07] LABS: Hemoglobin* 12.3 gm/dL (13.5-17.5)
[2025-06-18] MEDS: METOPROLOL TARTRATE 1 MG/ML inj 5 MG IVP ×2 (21:10→22:28)
[2025-06-18 21:32] VITALS: BP 157/91; PULSE 99; RESP 14; O2SAT 97
[2025-06-18 21:49] LABS: Chloride* 105 mmol/L (96-114); Sodium* 138 mmol/L (135-149)
[2025-06-18 21:50] LABS: Potassium* 4.1 mmol/L (3.6-5.1)
[2025-06-18 21:52] LABS: Anion Gap 7 mEq/L (7-15); Blood Urea Nitrogen* 24 mg/dL (7-30); Carbon Dioxide* 26 mmol/L (20-32); Creatinine* 1.3 mg/dL (0.5-1.5); Est. Creatinine Clearance* 47.57; Estimated Glomerular Filt Rate 56 ml/min
[2025-06-18 21:53] LABS: Calcium* 8.9 mg/dL (8.4-10.6); Glucose* 128 mg/dL (60-115)
[2025-06-18 22:08] VITALS: BP 153/103; PULSE 100; RESP 16; O2SAT 98
[2025-06-18 22:32] VITALS: BP 142/76; PULSE 84; RESP 12; O2SAT 97
== END 2025-06-18 23:09 | disposition home or self-care (01) ==
PROVIDERS: Emergency Provider Family Medicine; PCP Family Medicine
DX: R00.0 Tachycardia, unspecified (principal); Z79.01 Long term (current) use of anticoagulants; Z86.79 Personal history of other diseases of the circulatory system
CPT/HCPCS: 36415; 80048; 83735; 85018; 93005; 94761; 96361; 96374; 96376; 99284; 99285; J7030